=== PATIENT | female | born 1980 | race Caucasian/White ===

== ENCOUNTER → 2017-02-03 | Outpatient (CLI) | payer OTHER ==
[~2017-02-03] MED LIST: BUPR-83 PO; BUPRTAB51 PO; CEPH500C PO; CLOT1CRE4 TOP; EFFSR/75 PO; IBUP-1050 PO; LISI-729 PO; LISI5TAB3 PO; LITH1TAB PO; LITH1TAB10 PO; LITH300T PO; LTRCR15 EXT; MECL12.5 PO; MECL1TAB40 PO; MEDR150I IM; MEDR1INJ3 IM; PRLSR20 PO; PROP10TA7 PO; VENL150C56 PO; ZOLP5TAB PO
[2017-02-03 14:55] LABS: BLOOD UREA NITROGEN 12 mg/dl (7-18); BUN/CREATININE RATIO 12.3 (10-20); CALCIUM 9.4 mg/dl (8.5-10.1); CARBON DIOXIDE 19 mmol/L (21-32); CHLORIDE 110 mmol/L (98-107); CREATININE 0.95 mg/dl (0.60-1.20); GLUCOSE 85 mg/dl (70-99); POTASSIUM 4.4 mmol/L (3.5-5.1); SODIUM 140 mmol/L (136-145)
== END | disposition home or self-care (01) ==
LOC: C.LAB 12:59
PROVIDERS: ATTEND Psychiatry & Neurology Psychiatry
DX: Z79.899 Other long term (current) drug therapy (principal)

== ENCOUNTER 2017-02-24 16:35 | Emergency (ER) | payer OTHER ==
[~2017-02-24] VITALS: Ht 162.6 cm; Wt 150.3 kg
[~2017-02-24 16:35] MED LIST changes: -BUPRTAB51 PO; -CEPH500C PO; -CLOT1CRE4 TOP; -IBUP-1050 PO; -LISI-729 PO; -LITH1TAB PO; -MECL1TAB40 PO; -MEDR1INJ3 IM; -VENL150C56 PO
[2017-02-24 16:52] VITALS: TEMP 36.8; Ht 162.6 cm; Wt 150.3 kg
[2017-02-24] MEDS ORDERED: IBUP-1050 PO (17:07)
[2017-02-24] MEDS ORDERED: CLOT1CRE4 TOP (17:08)
[2017-02-24] MEDS ORDERED: LISI-729 PO (17:09)
[2017-02-24] MEDS ORDERED: MECL1TAB40 PO (17:11)
[2017-02-24] MEDS ORDERED: MEDR1INJ3 IM (17:13)
--- NOTE | 2017-02-24 17:26 | DIAGNOSTIC IMAGING REPORT ---
RIGHT HIP UNILATERAL 2 VIEWS CLINICAL HISTORY: R hip pain Right pain COMPARISON: None. DISCUSSION: The bones and joint spaces appear intact. There is no evidence of fracture, dislocation or bony disease. There is no evidence for soft tissue swelling. IMPRESSION: Negative study. Electronically signed by: Storm Curran M.D. 02/24/2017 5:24 PM Dictated Date/Time: 02/24/2017 5:24 PM
--- NOTE | 2017-02-24 18:09 | EMERGENCY ROOM VISIT NOTE ---
ED Visit Note First contact with patient: 16:55 I have seen and examined this patient with Jevon Austin and generally agree with the treatment plan as discussed. Problem List Medical Problems: (1) Benign hypertension Status: Chronic (2) Bipolar disorder Status: Chronic (3) Depression Status: Chronic Current/Historical Medications Scheduled Bupropion (Wellbutrin), 300 MG PO DAILY Clotrimazole (Topical) (Lotrimin Af), 1 APPLN TOP BID Ibuprofen (Advil), 600 MG PO DAILY Lisinopril (Zestril), 5 MG PO DAILY [place] Carbonate (Lithobid Ext Rel), 300 MG PO DAILY [place] Carbonate Ext Rel (Lithobid Ext Rel), 900 MG PO HS Medroxyprogesterone Acetate (C (Depo-Provera Contraceptiv), 150 MG IM EVERY 3 MONTHS Omeprazole (Prilosec), 20 MG PO DAILY Propranolol (Inderal), 10 MG PO DAILY Venlafaxine HCl (Venlafaxine HCl ER), 300 MG PO QAM Zolpidem Tartrate (Ambien), 5 MG PO HS Scheduled PRN Meclizine HCl (Meclizine HCl), 1 TAB PO UD PRN for Dizziness or Vertigo Allergies Coded Allergies: No Known Allergies (Verified , 02/24/17) Vital Signs Date Time Temp Pulse Resp B/P Pulse Ox O2 Delivery O2 Flow Rate FiO2 02/24/17 16:52 36.8 90 22 139/92 94 Room Air Departure Information Referrals Lee Ann Hogue M.D. (MEDICAL) (PCP) Patient Instructions [facility]
[2017-02-24 18:45] VITALS: BP 133/98; PULSE 81; O2SAT 97
--- NOTE | 2017-02-24 23:30 | EMERGENCY ROOM VISIT NOTE ---
History First contact with patient: 16:55 Chief Complaint: HIP PAIN Stated Complaint: RT HIP PAIN History of Present Illness The patient is a 36 year old female who presents to the Emergency Room with complaints of ongoing right hip pain. She was seen by her PCP recently and given a prescription for an anti-inflammatory "that begins with an I". The patient reports that the pain is worse when she walks. She denies any pain radiating into the back or down the leg. She denies any recent injury. She was referred to the emergency department by her PCP's office. No other imaging studies were performed in the office. The patient rates her pain a 9 out of 10. Review of Systems 10 system review was performed and was negative except for pertinent positives and negatives as indicated in history of present illness Past Medical/Surgical History Medical Problems: (1) Benign hypertension (2) Bipolar disorder (3) Depression Family History Patient reports no known family medical history. Social History Smoking Status: Never Smoker Alcohol Use: none Drug Use: none Marital Status: single Housing Status: lives with family Occupation Status: employed Current/Historical Medications Scheduled Bupropion (Wellbutrin), 300 MG PO DAILY Clotrimazole (Topical) (Lotrimin Af), 1 APPLN TOP BID Ibuprofen (Advil), 600 MG PO DAILY Lisinopril (Zestril), 5 MG PO DAILY [place] Carbonate (Lithobid Ext Rel), 300 MG PO DAILY [place] Carbonate Ext Rel (Lithobid Ext Rel), 900 MG PO HS Medroxyprogesterone Acetate (C (Depo-Provera Contraceptiv), 150 MG IM EVERY 3 MONTHS Omeprazole (Prilosec), 20 MG PO DAILY Propranolol (Inderal), 10 MG PO DAILY Venlafaxine HCl (Venlafaxine HCl ER), 300 MG PO QAM Zolpidem Tartrate (Ambien), 5 MG PO HS Scheduled PRN Meclizine HCl (Meclizine HCl), 1 TAB PO UD PRN for Dizziness or Vertigo Allergies Coded Allergies: No Known Allergies (Verified , 02/24/17) Physical Exam Vital Signs Date Time Temp Pulse Resp B/P Pulse Ox O2 Delivery O2 Flow Rate FiO2 02/24/17 18:45 81 16 133/98 97 Room Air 02/24/17 16:52 36.8 90 22 139/92 94 Room Air Physical Exam CONSTITUTIONAL: Morbidly obese female, alert and oriented X 3 with positive affect. Patient does not appear in any acute distress. HEENT: Normocephalic, atraumatic. Pupils equal, round and reactive. NECK: Full active range of motion without discomfort. RESPIRATORY: Clear to auscultation bilaterally with no wheezing, crackles, rhonchi or stridor. CARDIOVASCULAR: Regular rate and rhythm with no murmurs, rubs or gallops. GASTROINTESTINAL: Bowel sounds present in all quadrants. Abdomen is protuberant but soft and nontender to palpation. Negative McBurney's point tenderness. Negative CVA tenderness. MUSCULOSKELETAL: Examination shows generalized tenderness to palpation over the lateral pelvic region. No focal tenderness over the greater trochanteric region. Negative logroll. Negative straight leg raise. No tenderness to palpation through the lower back or SI joint. Pelvis stable with rock. Pedal pulses are intact. Ankle plantar/dorsiflexion strength is 5 out of 5 and symmetric bilaterally. INTEGUMENTARY: No rash or other significant dermatologic conditions noted. NEUROLOGIC: No focal neurologic deficits noted. Lower extremities are sensory intact with deep tendon reflexes 2+ and symmetric bilaterally. Medical Decision & Procedures ER Provider Diagnostic Interpretation: My interpretation of right hip x-rays does not show any acute fractures or dislocation. Radiologist report is as follows: RIGHT HIP UNILATERAL 2 VIEWS CLINICAL HISTORY: R hip pain Right pain COMPARISON: None. DISCUSSION: The bones and joint spaces appear intact. There is no evidence of fracture, dislocation or bony disease. There is no evidence for soft tissue swelling. IMPRESSION: Negative study. ED Course Patient history and physical exam were performed. Nurse's notes were reviewed. The patient refused any analgesics on initial exam. X-rays of the right hip were normal. The patient reports that she has both a walker and wheelchair at home. She was encouraged to limit her weightbearing over the next several days. She was encouraged to continue with her current anti-inflammatory as prescribed by her PCP, and Tylenol if needed for additional pain relief. I did encourage her to follow-up with her PCP for further reevaluation and management. The patient was happy with plan of care, voice understanding of all discharge instructions, and rated her pain a 5 out of 10 at the conclusion of my exam. The patient was also seen and examined by Dr. Srinivasan, ED attending physician, who agrees with workup and plan of care. Impression Primary Impression: Right hip pain Departure Information Referrals Lee Ann Hogue M.D. (MEDICAL) (PCP) Patient Instructions [facility]
== END 2017-02-24 18:48 | disposition home or self-care (01) ==
LOC: C.EDB 16:37 → C.EDD 18:48
DX: M25.551 Pain in right hip (principal); I10 Essential (primary) hypertension; F31.9 Bipolar disorder, unspecified; Z79.899 Other long term (current) drug therapy

== ENCOUNTER 2017-06-21 17:20 | Emergency (ER) | payer OTHER ==
[~2017-06-21] VITALS: Ht 162.6 cm; Wt 160.2 kg
[~2017-06-21 17:20] MED LIST changes: +CLOT1CRE4 TOP; +IBUP-1050 PO; +LISI-729 PO; -LISI5TAB3 PO; -LTRCR15 EXT; -MECL12.5 PO; +MECL1TAB40 PO; -MEDR150I IM; +MEDR1INJ3 IM
[2017-06-21] MEDS ORDERED: KETOROLAC TROMETHAMINE 30 MG/ML VIAL IV STA (17:33)
[2017-06-21 17:40] VITALS: TEMP 36.8; Ht 162.6 cm; Wt 160.2 kg
[2017-06-21 18:37] LABS: URINE APPEARANCE CLOUDY (CLEAR); URINE BILIRUBIN NEG (NEG); URINE COLOR YELLOW; URINE EPITHELIAL CELL AUTO >30 /lpf (0-5); URINE NITRITE NEG (NEG); URINE PH 8.5 (4.5-7.5); URINE SPECIFIC GRAVITY 1.015 (1.000-1.030); UROBILINOGEN NEG (NEG); ZZUR CULT IF INDIC CLEAN CATCH YES
[2017-06-21 18:38] LABS: BASO % 0.3 %; BASO ABS # 0.03 K/uL (0-0.2); COMPLETE YES; EOS % 3.1 %; HEMATOCRIT 38.4 % (37-47); IG% 0.2 %; LYMPH % 22.7 %; LYMPH ABS # 2.36 K/uL (1.2-3.4); MEAN CELL VOLUME 92.1 fL (80-100); MEAN CORPUSCULAR HEMOGLOBIN 30.7 pg (25-34); MEAN CORPUSCULAR HGB CONC 33.3 g/dl (32-36); MONO % 5.9 %; NEUT % 67.8 %; PLATELET COUNT 285 K/uL (130-400); RED BLOOD COUNT 4.17 M/uL (4.2-5.4); WHITE BLOOD COUNT 10.41 K/uL (4.8-10.8)
--- NOTE | 2017-06-21 18:42 | DIAGNOSTIC IMAGING REPORT ---
CHEST ONE VIEW PORTABLE CLINICAL HISTORY: Left-sided chest pain. COMPARISON STUDY: Chest radiograph February 14, 2014. FINDINGS: Lung volumes are normal. There is no pneumothorax or pleural effusion. Cardiomediastinal silhouette is stable. There is no evidence of pulmonary edema. No consolidation is identified to suggest pneumonia. The appearance of the chest is unchanged. IMPRESSION: No acute cardiopulmonary findings. Electronically signed by: Tree De León M.D. 06/21/2017 6:41 PM Dictated Date/Time: 06/21/2017 6:40 PM
[2017-06-21 18:43] LABS: MANUAL MICROSCOPIC REQUIRED? NO; REVIEW REQ? YES
[2017-06-21 18:58] LABS: BUN/CREATININE RATIO 13.4 (10-20); CALCIUM 9.6 mg/dl (8.5-10.1); POTASSIUM 4.1 mmol/L (3.5-5.1)
[2017-06-21] MEDS ORDERED: LITH1TAB PO (19:19)
[2017-06-21] MEDS ORDERED: VENL150C56 PO (19:19)
[2017-06-21] MEDS ORDERED: BUPRTAB51 PO (19:19)
[2017-06-21] MEDS ORDERED: CEPH500C PO (19:28)
[2017-06-21] MEDS ORDERED: CEPHALEXIN MONOHYDRATE 250 MG CAP PO ONE (19:30)
[2017-06-21 19:37] LABS: PREG INTERNAL NEGATIVE QC NEG CLEAR BACKGROUND; PREG INTERNAL POSITIVE QC POS CONTROL LINE
[2017-06-21 19:42] VITALS: BP 144/84; PULSE 81; O2SAT 99
--- NOTE | 2017-06-21 19:44 | EMERGENCY ROOM VISIT NOTE ---
History Report prepared by Eddi: Katlyn Zamora Under the Supervision of: Dr. José Antonio Ramos D.O. First contact with patient: 17:23 Stated Complaint: HIP PAIN History of Present Illness The patient is a 36 year old female who presents to the Emergency Room with complaints of worsening left hip pain beginning [employer]. The patient states that her pain radiates into the left side of her back. When she points to her hip she grabs her left mid to lower thoracic region. She denies any recent injury or trauma. She has been experiencing this pain for the past year. It started worsening a couple of months ago and she saw her PCP. She was given antiinflammatories at that time. The patient states that the medication was helping, but as soon as it wears off her pain returns. The patient states that today her pain is much more intense than usual. She rates her pain as an 8/10 in severity. Taking hot baths and Aleve helps to alleviate her pain. Lifting and movements such as twisting, turning, bending exacerbate her pain. She does report that last night she was carrying heavy bins up from her basement and thinks that this may be why her pain is worse today. The patient also reports an episode of chest pain occurring around 2pm this afternoon. She was sitting on the couch at her friend's house when she suddenly had a sharp, stabbing pain in her chest. She estimates that this pain lasted for 3 minutes and then resolved. She has never experienced pain like this before. She denies the pain radiating into her jaw or arm. Pt denies headache, fevers, shortness of breath, nausea, vomiting, diarrhea, pain with urination, and melena. Source of History: patient Onset: [employer] Position: pelvis (left hip) Symptom Intensity: 8/10 Quality: other (radiating) Timing: worsening Modifying Factors (Worsening): movement, other (lifting) Modifying Factors (Relieving): ibuprofen, heat Associated Symptoms: + chest pain, + back pain, No fevers, No headache, No SOB, No nausea, No vomiting, No urinary symptoms Review of Systems See HPI for pertinent positives & negatives. A total of 10 systems reviewed and were otherwise negative. Past Medical & Surgical Medical Problems: (1) Benign hypertension (2) Bipolar disorder (3) Depression Family History Patient reports no known family medical history. Social History Smoking Status: Never Smoker Alcohol Use: none Drug Use: none Marital Status: single Housing Status: lives with family Occupation Status: employed Current/Historical Medications Scheduled Bupropion Hcl (Wellbutrin Xl), 300 MG PO QAM Cephalexin Monohydrate (Keflex), 500 MG PO QID Lisinopril (Zestril), 5 MG PO QAM [place] Carbonate (Lithobid Ext Rel), 300 MG PO QAM [place] Carbonate Ext Rel (Lithobid Ext Rel), 900 MG PO HS Medroxyprogesterone Acetate (C (Depo-Provera Contraceptiv), 150 MG IM EVERY 3 MONTHS Omeprazole (Prilosec), 20 MG PO QAM Propranolol (Inderal), 10 MG PO HS Venlafaxine Hcl (Effexor Extended Rel), 300 MG PO QAM Zolpidem Tartrate (Ambien), 5 MG PO HS Allergies Coded Allergies: No Known Allergies (Verified , 06/21/17) Physical Exam Vital Signs Date Time Temp Pulse Resp B/P (MAP) Pulse Ox O2 Delivery O2 Flow Rate FiO2 06/21/17 18:39 77 18 137/82 99 Room Air 06/21/17 17:40 36.8 86 20 156/86 98 Room Air Physical Exam GENERAL: alert, sitting up in bed, disheveled, morbidly obese, well appearing, no distress, non-toxic EYE EXAM: normal conjunctiva OROPHARYNX: no exudate, no erythema, lips, buccal mucosa, and tongue normal and mucous membranes are moist NECK: supple, no nuchal rigidity, no adenopathy, non-tender LUNGS: Clear to auscultation. Normal chest wall mechanics HEART: Distant, no murmurs, S1 normal and S2 normal CHEST: Acute reproducible mid-sternal pain. ABDOMEN: abdomen soft, non-tender, normo-active bowel sounds, no masses, no rebound or guarding. BACK: Minimal tenderness within the left mid to lower flank tracking to the left mid thoracic perispinal region, no midline full active and passive ROM of the hip and knee SKIN: no rashes and no bruising UPPER EXTREMITIES: upper extremities are grossly normal. LOWER EXTREMITIES: No pitting edema. Negative straight leg raise. NEURO EXAM: Normal sensorium, cranial nerves II-XII grossly intact, normal speech, no gross weakness of arms, no gross weakness of legs. Medical Decision & Procedures ER Provider Diagnostic Interpretation: Radiology results as stated below per my review and the radiologist's interpretation: CHEST ONE VIEW PORTABLE CLINICAL HISTORY: Left-sided chest pain. COMPARISON STUDY: Chest radiograph February 14, 2014. FINDINGS: Lung volumes are normal. There is no pneumothorax or pleural effusion. Cardiomediastinal silhouette is stable. There is no evidence of pulmonary edema. No consolidation is identified to suggest pneumonia. The appearance of the chest is unchanged. IMPRESSION: No acute cardiopulmonary findings. Electronically signed by: Tree De León M.D. 06/21/2017 6:41 PM Dictated Date/Time: 06/21/2017 6:40 PM Laboratory Results 06/21/17 18:29 Red Blood Count 4.17, Mean Corpuscular Volume 92.1, Mean Corpuscular Hemoglobin 30.7, Mean Corpuscular Hemoglobin Concent 33.3, Mean Platelet Volume 9.0, Neutrophils (%) (Auto) 67.8, Lymphocytes (%) (Auto) 22.7, Monocytes (%) (Auto) 5.9, Eosinophils (%) (Auto) 3.1, Basophils (%) (Auto) 0.3, Neutrophils # (Auto) 7.07, Lymphocytes # (Auto) 2.36, Monocytes # (Auto) 0.61, Eosinophils # (Auto) 0.32, Basophils # (Auto) 0.03 06/21/17 18:29 Test 06/21/17 18:25 06/21/17 18:29 Urine Color YELLOW Urine Appearance CLOUDY (CLEAR) Urine pH 8.5 (4.5-7.5) Urine Specific [place] 1.015 (1.000-1.030) Urine Protein NEG (NEG) Urine Glucose (UA) NEG (NEG) Urine Ketones NEG (NEG) Urine Occult Blood NEG (NEG) Urine Nitrite NEG (NEG) Urine Bilirubin NEG (NEG) Urine Urobilinogen NEG (NEG) Urine Leukocyte Esterase MODERATE (NEG) Urine WBC (Auto) 5-10 /hpf (0-5) Urine RBC (Auto) 0-4 /hpf (0-4) Urine Hyaline Casts (Auto) 0 /lpf (0-5) Urine Epithelial Cells (Auto) >30 /lpf (0-5) Urine Bacteria (Auto) 4+ (NEG) Urine Test NEG (NEG) White Blood Count 10.41 K/uL (4.8-10.8) Red Blood Count 4.17 M/uL (4.2-5.4) Hemoglobin 12.8 g/dL (12.0-16.0) Hematocrit 38.4 % (37-47) Mean Corpuscular Volume 92.1 fL (80-100) Mean Corpuscular Hemoglobin 30.7 pg (25-34) Mean Corpuscular Hemoglobin Concent 33.3 g/dl (32-36) Platelet Count 285 K/uL (130-400) Mean Platelet Volume 9.0 fL (7.4-10.4) Neutrophils (%) (Auto) 67.8 % Lymphocytes (%) (Auto) 22.7 % Monocytes (%) (Auto) 5.9 % Eosinophils (%) (Auto) 3.1 % Basophils (%) (Auto) 0.3 % Neutrophils # (Auto) 7.07 K/uL (1.4-6.5) Lymphocytes # (Auto) 2.36 K/uL (1.2-3.4) Monocytes # (Auto) 0.61 K/uL (0.11-0.59) Eosinophils # (Auto) 0.32 K/uL (0-0.5) Basophils # (Auto) 0.03 K/uL (0-0.2) RDW Standard Deviation 43.3 fL (36.4-46.3) RDW Coefficient of Variation 12.9 % (11.5-14.5) Immature Granulocyte % (Auto) 0.2 % Immature Granulocyte # (Auto) 0.02 K/uL (0.00-0.02) D-Dimer 330 ug/L FEU (0-500) Anion Gap 5.0 mmol/L (3-11) Est Creatinine Clear Calc Drug Dose 117.9 ml/min Estimated GFR () 83.4 Estimated GFR (Non- 71.9 BUN/Creatinine Ratio 13.4 (10-20) Calcium Level 9.6 mg/dl (8.5-10.1) Total Bilirubin 0.4 mg/dl (0.2-1) Direct Bilirubin 0.2 mg/dl (0-0.2) Aspartate Amino Transf (AST/SGOT) 156 U/L (15-37) Alanine Aminotransferase (ALT/SGPT) 98 U/L (12-78) Alkaline Phosphatase 81 U/L (45-117) Total Protein 6.5 gm/dl (6.4-8.2) Albumin 3.7 gm/dl (3.4-5.0) Lipase 133 U/L (73-393) Human Chorionic Gonadotropin, Quant < 1 mIU/mL [place] Level 1.1 mMOL/L (0.6-1.2) Laboratory results per my review. Medications Administered Medications (Trade) Dose Ordered Sig/Starr Route Start Time Stop Time Status Last Admin Dose Admin Ketorolac Tromethamine (Toradol Inj) 30 mg NOW STAT IV 06/21/17 17:33 06/21/17 17:34 DC 06/21/17 18:37 30 MG Cephalexin Monohydrate (Keflex Cap) 500 mg NOW ONCE PO 06/21/17 19:30 06/21/17 19:31 DC 06/21/17 19:36 500 MG ECG Indication: chest pain Rate (beats per minute): 84 Rhythm: normal sinus Findings: no ectopy, other (normal axis - poor baseline) ED Course ED COURSE: Vital signs were reviewed and showed hypertensive. The patients medical record was reviewed The above diagnostic studies were performed and reviewed. ED treatments and interventions as stated above. 1723: The patient was evaluated in room C3. A complete history and physical examination was performed. 1733: Toradol 30 mg IV 1823: I reassessed the patient and she is doing well. 1914: I updated the patient on her results so far. 1917: I spoke with Rohini the pharmacist and she notes that the patient's lithium level is very unlikely to cause transaminitis. 0: Upon reevaluation, the patient is feeling better and resting comfortably. I discussed my findings with the patient and she understands and agrees with the treatment plan. Based on the patients age, coexisting illnesses, exam and lab findings the decision to treat as an outpatient was made. The patient remained stable while under my care. The patient appeared well at the time of discharge. Medical Decision Differential diagnoses includes but is not limited to lumbar radiculopathy, muscle strain, facture, cauda equina, mass, and disc herniation. Patient is a 36-year-old female who presents the ER for several complaints. Initially she is complaining of left hip pain but when asked it is in the left flank region. She has no pain with range of motion of her hip. No signs of infection. No signs of cauda equina. She doesn't complain of chest pain around 2 PM which was sharp stabbing in nature which lasted for 2 minutes. On exam she has acute reproducible anterior chest pain which was the exact same pain she had. D-dimer was negative. EKG was unremarkable. Chest x-ray was normal. CBC along with BMP and bilirubin was unremarkable. Lipase is negative. HCG was negative. She had a mild transaminitis. Discussed with him possibly causing this with pharmacy they noted it's unlikely and transient. Patient has no other complaints. No abdominal pain. Flank pain is clearly muscle skeletal likely secondary to the lifting of heavy boxes yesterday. D- dimer was negative. UA suggest a UTI. She did complain of mild burning on reevaluation. She was updated. Patient was discharged following improvement of her pain with Toradol to follow-up with PCP. Discussed with Pt concerning signs and symptoms to watch out for. Pt was instructed to follow up with their PCP and discussed with the patient their option to return to the ED at anytime for persistent or worsening symptoms. The appropriate anticipatory guidance and out-patient management, including indications for return to the emergency department, were explained at length to the patient and understood. Medication Reconcilliation Current Medication List: was personally reviewed by me Blood Pressure Screening Patient's blood pressure: Elevated blood pressure Blood pressure disposition: Elevated BP felt to be situational Impression Primary Impression: Back pain Additional Impression: Urinary tract infection Scribe Attestation The scribe's documentation has been prepared under my direction and personally reviewed by me in its entirety. I confirm that the note above accurately reflects all work, treatment, procedures, and medical decision making performed by me. Departure Information Dispostion Home / Self-Care Prescriptions Cephalexin Monohydrate (Keflex) 500 Mg Cap 500 MG PO QID, #40 CAP Prov: José Antonio Ramos, DO 06/21/17 Referrals Lee Ann Hogue M.D. (MEDICAL) (PCP) Forms HOME CARE DOCUMENTATION FORM, IMPORTANT VISIT INFORMATION, WORK / SCHOOL INSTRUCTIONS Patient Instructions Back Pain - [facility], My [facility] Additional Instructions Please follow up with your primary care doctor or if you are a student, [facility] with in the next 24 hours. Any worsening of your symptoms, please return to the ED immediately. This includes any fevers greater than 100.4, worsening pain, chest pain, shortness breath, persistent nausea, weakness or numbness in your arms or legs, inability urinate, vomiting, unable to eat or drink, or any other concerning signs or symptoms from your standpoint. You were found to have a blood pressure greater than 120 systolic over 90 diastolic. Due to the new Medicare guidelines, we are now recommending that you follow up with your primary care doctor in regards to this elevated blood pressure. Please take Motrin as needed for pain. You were found to have a urinary tract infection. Please take antibiotic as prescribed. You were also found to have an elevation in your liver functions. Please have your LFTs rechecked in 3-4 days. Problem Qualifiers Primary Impression: Back pain Back pain location: thoracic back pain Chronicity: acute Back pain laterality: left Qualified Codes: M54.6 - Pain in thoracic spine Additional Impression: Urinary tract infection Urinary tract infection type: site unspecified Hematuria presence: without hematuria Qualified Codes: N39.0 - Urinary tract infection, site not specified
== END 2017-06-21 19:43 | disposition home or self-care (01) ==
LOC: EDBD 17:20 → C.EDC 17:21
DX: M54.6 Pain in thoracic spine (principal); N39.0 Urinary tract infection, site not specified; I10 Essential (primary) hypertension; F31.9 Bipolar disorder, unspecified; Z79.899 Other long term (current) drug therapy

== ENCOUNTER → 2017-09-12 | Outpatient (CLI) | payer OTHER ==
[~2017-09-12] MED LIST changes: -BUPR-83 PO; +BUPRTAB51 PO; +CEPH500C PO; -CLOT1CRE4 TOP; -EFFSR/75 PO; -IBUP-1050 PO; +LITH1TAB PO; -LITH1TAB10 PO; -MECL1TAB40 PO; +VENL150C56 PO
[2017-09-12 17:11] LABS: CHOLESTEROL/HDL RATIO 2.3; THYROID STIMULATING HORMONE 4.28 uIu/ml (0.300-4.500)
[2017-09-13 07:36] LABS: ESTIMATED AVERAGE GLUCOSE 100 mg/dl; HA1C FLAG Normal (Normal)
== END | disposition home or self-care (01) ==
LOC: C.LAB 15:28
PROVIDERS: ATTEND Psychiatry & Neurology Psychiatry
DX: Z51.81 Encounter for therapeutic drug level monitoring (principal); Z79.899 Other long term (current) drug therapy

== ENCOUNTER 2017-11-22 08:59 | Emergency (ER) | payer OTHER ==
[~2017-11-22] VITALS: Ht 162.6 cm; Wt 154.8 kg
[2017-11-22 09:03] VITALS: TEMP 36.5; Ht 162.6 cm; Wt 154.8 kg
[2017-11-22] MEDS ORDERED: BUPR150T5 PO (09:11)
[2017-11-22] MEDS ORDERED: KETOROLAC TROMETHAMINE 30 MG/ML VIAL IV STA (09:16)
[2017-11-22] MEDS ORDERED: CLIN300C2 PO (09:26)
[2017-11-22] MEDS ORDERED: NAPR500T3 PO (09:26)
[2017-11-22] MEDS ORDERED: CLINDAMYCIN IV 900 MG in DEXTROSE 5% 100ML 100 ML IV ONE (09:30)
[2017-11-22 11:31] VITALS: BP 148/87; PULSE 89; O2SAT 98
--- NOTE | 2017-11-22 15:32 | EMERGENCY ROOM VISIT NOTE ---
History First contact with patient: 09:06 Chief Complaint: DENTAL PAIN Stated Complaint: TOOTH PAIN,SWELLING ON R SIDE OF FACE Nursing Triage Summary: right side of the face with facial swelling and tooth pain since yesterday. History of Present Illness The patient is a 37 year old female who presents to the Emergency Room with complaints of right upper dental pain and facial swelling. The patient reports that she noticed discomfort yesterday morning, and by last evening, the face was swollen. When she awoke this morning, the swelling was even worse. She denies any fevers or chills, sinus congestion, runny nose, headache, sore throat or difficulty swallowing. The patient reports that she has two bad upper teeth that need to be pulled. She suspects that these teeth are what are causing her problem. She rates her discomfort a 7 out of 10. Review of Systems 10 system review was performed and was negative except for pertinent positives and negatives as indicated in history of present illness Past Medical/Surgical History Medical Problems: (1) Benign hypertension (2) Bipolar disorder (3) Depression Family History Patient reports no known family medical history. Social History Smoking Status: Former Smoker Alcohol Use: none Drug Use: none Marital Status: single Housing Status: lives with family Occupation Status: employed Current/Historical Medications Scheduled Bupropion Hcl (Wellbutrin Xl), 300 MG PO QAM Bupropion Hcl (Bupropion Hcl Xl), 150 MG PO QAM Clindamycin Hcl (Cleocin), 300 MG PO QID Lisinopril (Zestril), 5 MG PO QAM [place] Carbonate (Lithobid Ext Rel), 300 MG PO QAM [place] Carbonate Ext Rel (Lithobid Ext Rel), 900 MG PO HS Medroxyprogesterone Acetate (C (Depo-Provera Contraceptiv), 150 MG IM EVERY 3 MONTHS Naproxen (Naproxen), 1 TAB PO BID Omeprazole (Prilosec), 20 MG PO QAM Propranolol (Inderal), 10 MG PO HS Venlafaxine Hcl (Effexor Extended Rel), 300 MG PO QAM Zolpidem Tartrate (Ambien), 5 MG PO HS Physical Exam Vital Signs Date Time Temp Pulse Resp B/P (MAP) Pulse Ox O2 Delivery O2 Flow Rate FiO2 11/22/17 11:31 89 16 148/87 98 Room Air 11/22/17 09:03 36.5 95 20 143/91 98 Room Air Physical Exam CONSTITUTIONAL: Morbidly obese female, alert and oriented X 3 with positive affect. Patient does not appear in any acute distress. HEENT: Examination shows notable right facial edema without overriding erythema or palpable induration. Pupils equal, round and reactive. Ears and nares are clear. OROPHARYNX: The patient has several dental cavities of the right maxillary molars. There is no focal gingival erythema, fluctuance or pointing. No evidence for Easton's angina or retropharyngeal abscess. LYMPHATICS: No preauricular, submental, submandibular or cervical chain adenopathy. NECK: Full active range of motion without discomfort. RESPIRATORY: Clear to auscultation bilaterally with no wheezing, crackles, rhonchi or stridor. CARDIOVASCULAR: Regular rate and rhythm with no murmurs, rubs or gallops. INTEGUMENTARY: No rash or other significant dermatologic conditions noted. NEUROLOGIC: Facial sensations are intact. Medical Decision & Procedures Medications Administered Medications (Trade) Dose Ordered Sig/Starr Route Start Time Stop Time Status Last Admin Dose Admin Clindamycin Phosphate 900 mg/ Dextrose 106 ml @ 100 mls/hr ONE ONCE IV 11/22/17 09:30 11/22/17 10:33 DC 11/22/17 09:33 100 MLS/HR Ketorolac Tromethamine (Toradol Inj) 30 mg NOW STAT IV 11/22/17 09:16 11/22/17 09:17 DC 11/22/17 09:23 30 MG ED Course Patient history and physical exam were performed. Nurse's notes were reviewed. Vital signs were reviewed, showing an elevated blood pressure 143/91. The patient is afebrile. She does not appear acutely or toxic on exam. I did suggest administering IV antibiotics, and the patient was in agreement. IV access was established, and the patient was administered clindamycin 900 mg IV infusion. She was also administered Toradol 30 mg IVP. The patient was provided prescriptions for naproxen 500 mg twice a day, and clindamycin 300 mg 4 times a day. She was encouraged to also take Tylenol every 6-8 hours. The patient was encouraged to follow-up with a dentist for further definitive management. She was instructed to return to the emergency department for any progressively worsening pain, swelling or fever. The patient was happy with plan of care, voiced understanding of all discharge instructions, and rated her discomfort a 3 out of 10 at the time of discharge. The patient was encouraged to follow-up with her PCP for a blood pressure recheck as her blood pressure was elevated while in the emergency department. Medical Decision Blood Pressure Screening Patient's blood pressure: Elevated blood pressure Blood pressure disposition: Referred to PCP Impression Primary Impression: Dental infection Additional Impression: Elevated blood pressure reading Departure Information Prescriptions Clindamycin Hcl (CLEOCIN) 300 Mg Cap 300 MG PO QID for 10 Days, #40 CAP Prov: Jevon Ausitn PA 11/22/17 Naproxen (NAPROXEN) 500 Mg Tab 1 TAB PO BID for 10 Days, #20 TAB 1 Refill Prov: Jevon Austin PA 11/22/17 Referrals No Doctor, Assigned (PCP) Forms HOME CARE DOCUMENTATION FORM, IMPORTANT VISIT INFORMATION Patient Instructions [facility] Additional Instructions Finish all Pen-Vee K antibiotics as prescribed. Ibuprofen 800 mg and/or Tylenol 1000 mg every 8 hours. You may also alternate these medications for more effective pain relief: Ibuprofen --4 HRS--> Tylenol --4 HRS--> ibuprofen --4 HRS--> Tylenol .... OxyIR if needed for worse pain. Do not drink or drive while taking OxyIR. Soft foods. YOU MUST SEE A DENTIST FOR DEFINITIVE CARE. THE EMERGENCY DEPARTMENT DOES NOT PROVIDE DENTAL SERVICES, REFERRALS OR CHRONIC DENTAL PAIN MANAGEMENT. YOU MAY ALSO CALL YOUR FAMILY DOCTOR FOR PAIN MANAGEMENT UNTIL YOU SEE YOUR DENTIST. Your blood pressure was elevated at 143/91 while in the emergency department. Suggest follow-up with your family doctor for a blood pressure recheck. Problem Qualifiers
== END 2017-11-22 11:39 | disposition home or self-care (01) ==
LOC: C.EDB 09:00
DX: K08.89 Other specified disorders of teeth and supporting structures (principal); R03.0 Elevated blood-pressure reading, without diagnosis of hypertension; I10 Essential (primary) hypertension; F31.9 Bipolar disorder, unspecified; Z87.891 Personal history of nicotine dependence; Z79.899 Other long term (current) drug therapy

== ENCOUNTER 2018-01-16 23:09 | Emergency (ER) | payer OTHER ==
[~2018-01-16] VITALS: Ht 162.6 cm; Wt 155.8 kg
[~2018-01-16 23:09] MED LIST changes: +BUPR150T5 PO; -CEPH500C PO; +NAPR500T3 PO
[2018-01-16 23:16] VITALS: TEMP 37; Ht 162.6 cm; Wt 155.8 kg
[2018-01-17 00:29] LABS: HEMOGLOBIN 13.7 g/dL (12.0-16.0); MEAN CELL VOLUME 89.5 fL (80-100); MEAN CORPUSCULAR HEMOGLOBIN 30.6 pg (25-34); MEAN CORPUSCULAR HGB CONC 34.3 g/dl (32-36); MEAN PLATELET VOLUME 8.9 fL (7.4-10.4); PLATELET COUNT 320 K/uL (130-400); RED CELL DISTRIBUTION WIDTH CV 13.9 % (11.5-14.5); RED CELL DISTRIBUTION WIDTH SD 45.5 fL (36.4-46.3); WHITE BLOOD COUNT 10.51 K/uL (4.8-10.8)
[2018-01-17 00:54] LABS: ALT/SGPT 28 U/L (12-78); AST/SGOT 9 U/L (15-37); BLOOD UREA NITROGEN 16 mg/dl (7-18); CALCIUM 9.1 mg/dl (8.5-10.1); CARBON DIOXIDE 19 mmol/L (21-32); CREATININE 1.21 mg/dl (0.60-1.20); GLUCOSE 106 mg/dl (70-99); POTASSIUM 3.3 mmol/L (3.5-5.1); SODIUM 138 mmol/L (136-145)
[2018-01-17 01:05] LABS: ALKALINE PHOSPHATASE 68 U/L (45-117); TOTAL PROTEIN 7.7 gm/dl (6.4-8.2)
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
[2018-01-17 02:49] VITALS: BP 151/88
[2018-01-17 07:47] VITALS: PULSE 93; O2SAT 98
--- NOTE | 2018-01-19 18:35 | Pharmacy Progress Note ---
ED Pharmacist Culture FollowUp Date of Service: Jan 19, 2018. Patient was transferred to the [facility]. Contacted the [facility] and spoke neal Marques who confirmed that patient was still there. Informed of positive culture results. Shelli noted to fax the results to , which I did. Fax confirmation received.
== END 2018-01-17 07:47 ==
LOC: C.EDB 23:10 → C.EDA 01-17 07:47
DX: R45.851 Suicidal ideations (principal); I10 Essential (primary) hypertension; F31.9 Bipolar disorder, unspecified; Z87.891 Personal history of nicotine dependence; Z83.3 Family history of diabetes mellitus; Z82.0 Family history of epilepsy and other diseases of the nervous system; Z79.899 Other long term (current) drug therapy

== ENCOUNTER 2018-04-02 12:06 | Emergency (ER) | payer OTHER ==
[~2018-04-02] VITALS: Ht 162.6 cm; Wt 158.1 kg
[~2018-04-02 12:06] MED LIST changes: -NAPR500T3 PO
[2018-04-02 12:08] VITALS: TEMP 36.7; Ht 162.6 cm; Wt 158.1 kg
[2018-04-02] MEDS ORDERED: PROP20TA67 PO (12:44)
[2018-04-02] MEDS ORDERED: EFFSR75 PO (12:44)
[2018-04-02] MEDS ORDERED: MELA1TAB PO (12:46)
--- NOTE | 2018-04-02 13:06 | DIAGNOSTIC IMAGING REPORT ---
L KNEE 3 VIEWS CLINICAL HISTORY: Left knee pain following fall. COMPARISON: Left knee radiographs and CT of the left knee February 17, 2013. FINDINGS: Alignment of left knee is anatomic. No acute fracture or joint effusion is identified. There is extensive tricompartmental osteophytosis of the left knee. There is mild to moderate joint space narrowing within the lateral and patellofemoral compartments. Cortical irregularity of the medial metadiaphysis of the left tibia is chronic. Soft tissue swelling is present. IMPRESSION: 1. No acute fracture or joint effusion of the left knee. 2. Moderate tricompartmental osteoarthritis of the left knee. Electronically signed by: Tree De León M.D. 04/02/2018 1:05 PM Dictated Date/Time: 04/02/2018 1:03 PM
--- NOTE | 2018-04-02 13:07 | DIAGNOSTIC IMAGING REPORT ---
L TIBIA/FIBULA 2 VIEWS ROUTINE CLINICAL HISTORY: same trauma. Pain. COMPARISON: None. DISCUSSION: Pretibial soft tissue edema. No acute bony abnormality. Degenerative changes in medial and lateral joint compartments of the knee. No abnormal periosteal reaction. IMPRESSION: Considerable pretibial soft tissue edema. No acute bony abnormality. The above report was generated using voice recognition software. It may contain grammatical, syntax or spelling errors. Electronically signed by: Storm Curran M.D. 04/02/2018 1:06 PM Dictated Date/Time: 04/02/2018 1:04 PM
--- NOTE | 2018-04-02 13:46 | EMERGENCY ROOM VISIT NOTE ---
ED Visit Note First contact with patient: 12:13 The patient was seen and examined with Garrett Umana PA-C. I agree with the history, physical and findings. Please see the note for disposition and details.
[2018-04-02] MEDS ORDERED: TRAM-10 PO (14:02)
[2018-04-02 14:17] VITALS: BP 145/85; PULSE 62; O2SAT 99
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
== END 2018-04-02 14:18 | disposition home or self-care (01) ==
LOC: C.EDB 12:07 → C.EDD 14:18
DX: S80.02XA Contusion of left knee, initial encounter (principal); S80.12XA Contusion of left lower leg, initial encounter; W01.0XXA Fall on same level from slipping, tripping and stumbling without subsequent striking against object, initial encounter; Y92.89 Other specified places as the place of occurrence of the external cause; I10 Essential (primary) hypertension; Z79.899 Other long term (current) drug therapy

== ENCOUNTER → 2018-07-20 | Outpatient (CLI) | payer OTHER ==
[~2018-07-20] MED LIST changes: +EFFSR75 PO; +MELA1TAB PO; +PROP20TA67 PO
[2018-07-20 14:53] LABS: BASO % 0.2 %; BASO ABS # 0.01 K/uL (0-0.2); EOS % 2.5 %; EOS ABS # 0.16 K/uL (0-0.5); HEMATOCRIT 41.2 % (37-47); HEMOGLOBIN 13.6 g/dL (12.0-16.0); IG# 0.01 K/uL (0.00-0.02); LYMPH % 39.2 %; LYMPH ABS # 2.51 K/uL (1.2-3.4); MEAN CELL VOLUME 90.9 fL (80-100); MEAN PLATELET VOLUME 9.3 fL (7.4-10.4); MONO % 3.9 %; MONO ABS # 0.25 K/uL (0.11-0.59); NEUT ABS # 3.46 K/uL (1.4-6.5); PLATELET COUNT 296 K/uL (130-400); RED CELL DISTRIBUTION WIDTH CV 13.4 % (11.5-14.5)
[2018-07-20 15:03] LABS: HEMOGLOBIN A1C 5.2 % (4.5-5.6)
[2018-07-20 15:34] LABS: ALBUMIN 3.9 gm/dl (3.4-5.0); ALKALINE PHOSPHATASE 59 U/L (45-117); ALT/SGPT 37 U/L (12-78); AST/SGOT 12 U/L (15-37); BLOOD UREA NITROGEN 13 mg/dl (7-18); CALCIUM 9.2 mg/dl (8.5-10.1); CARBON DIOXIDE 24 mmol/L (21-32); CHOLESTEROL 161 mg/dl (0-200); CREATININE 0.77 mg/dl (0.60-1.20); GLUCOSE 87 mg/dl (70-99); LDL CHOLESTEROL CALCULATED 77 mg/dl; POTASSIUM 3.9 mmol/L (3.5-5.1); SODIUM 140 mmol/L (136-145); TOTAL PROTEIN 7.4 gm/dl (6.4-8.2)
== END | disposition home or self-care (01) ==
LOC: C.LAB 13:40
PROVIDERS: ATTEND Physician Assistant
DX: Z79.899 Other long term (current) drug therapy (principal)

== ENCOUNTER 2019-04-23 11:25 | Inpatient (IN) ==
[2019-04-23] MEDS ORDERED: SODIUM CHLORIDE 0.9% 1000ML 1,000 ML IV SCH (12:00)
[2019-04-23 13:08] LABS: Basophils # (auto) 0.01 K/uL (0-0.2); Basophils % (auto) 0.1 %; Eosinophils # (auto) 0.22 K/uL (0-0.5); Eosinophils % (auto) 2.6 %; Hematocrit (blood only) 30.8 % (37-47); Hemoglobin 10.2 g/dL (12.0-16.0); Immature Granulocytes # (auto) 0.02 K/uL (0.00-0.02); Immature Granulocytes % (auto) 0.2 %; Lymphocytes # (auto) 0.99 K/uL (1.2-3.4); Lymphocytes % (auto) 11.7 %; Mean Corpuscular Hgb Conc 33.1 g/dL (32-36); Mean Corpuscular Volume 92.2 fL (80-100); Mean Platelet Volume 9.5 fL (7.4-10.4); Monocytes # (auto) 0.52 K/uL (0.11-0.59); Monocytes % (auto) 6.1 %; Neutrophils # (auto) 6.71 K/uL (1.4-6.5); Neutrophils % (auto) 79.3 %; Platelet Count 264 K/uL (130-400); RDW Coefficient of Variation 13.4 % (11.5-14.5); RDW Standard Deviation 45.4 fL (36.4-46.3); Red Blood Count 3.34 M/uL (4.2-5.4); White Blood Count 8.47 K/uL (4.8-10.8)
[2019-04-23 13:20] LABS: INR 1.1 (0.9-1.1); Partial Thromboplastin Ratio 0.9; Partial Thromboplastin Time 24.4 Seconds (21.0-31.0); Prothrombin Time 10.9 Seconds (9.0-12.0)
--- NOTE | 2019-04-23 13:27 | CT Scan Report ---
CT head/brain wo con CLINICAL HISTORY: 38 years-old Female presenting with altered, increasing confusion, abnormal behavio r, change of medication on Friday, reported fall yesterday with injury to right leg and head, pain in the hand and right upper leg, disoriented to time. TECHNIQUE: Multidetector CT imaging of the head was performed without the use of intravenous contrast . IV contrast: None. One or more dose lowering techniques were used consistent with the principles of ALARA (as low as reasonably achievable), including automatic exposure control, mA or kV adjustment t o individual patient size, and/or use of iterative reconstruction. COMPARISON: 02/18/2019. CT DOSE (mGy.cm): The estimated cumulative dose is 1277.12 mGycm. FINDINGS: Director Compensation topogram: Unremarkable. Ventricles and sulci normal in size. Calcified foci in the subependymal region of the lateral ventric les. No hemorrhage. Brain parenchyma normal in appearance with preserved vernon-white differentiation. No acute territorial infarct. No mass effect or midline shift. No extra-axial fluid collection. Paran kylah sinuses and mastoid air cells clear. Calvarium intact. IMPRESSION: 1. No acute intracranial abnormality. 2. Subacute minimal calcified foci again could suggest underlying tuberous sclerosis or prior infect ion. Electronically signed by: Manolo Banerjee M.D. 04/23/2019 1:25 PM
--- NOTE | 2019-04-23 13:29 | XRay Report ---
XR chest 1V portable CLINICAL HISTORY: 38 years-old Female presenting with weakness. TECHNIQUE: Portable upright AP view of the chest was obtained. COMPARISON: Chest CT from 02/18/2019 and chest x-ray from 11/07/2018. FINDINGS: Cardiac silhouette top normal in size. Mildly low lung volumes. No focal opacity. No large effusion o r pneumothorax. Osseous structures normal. Upper abdomen normal. IMPRESSION: 1. Mildly low lung volumes with hypoventilatory changes. No convincing evidence of acute cardiopulmo nary disease. Electronically signed by: Manolo Banerjee M.D. 04/23/2019 1:28 PM
[2019-04-23 13:35] LABS: Alanine Aminotransferase 25 U/L (12-78); Albumin Level 3.4 gm/dl (3.4-5.0); BUN Creatinine Ratio 12.5 (10-20); Blood Urea Nitrogen 18 mg/dl (7-18); Calcium 9.1 mg/dl (8.5-10.1); Carbon Dioxide 19 mmol/L (21-32); Chloride 113 mmol/L (98-107); Creatinine Clr Calc Pharmacy 75.6 ml/min; Est GFR (Non-African American) 44.9; Glucose 88 mg/dl (70-99); Magnesium 2.6 mg/dl (1.8-2.4); Potassium 4.5 mmol/L (3.5-5.1); Sodium 134 mmol/L (136-145)
[2019-04-23 13:44] LABS: Albumin Globulin Ratio 1.1 (0.9-2); Alkaline Phosphatase 145 U/L (45-117); Aspartate Aminotransferase 11 U/L (15-37); Bilirubin,Total 0.3 mg/dl (0.2-1); Creatine Kinase 63 U/L (26-192); Globulin 3.1 gm/dl (2.5-4.0); Total Protein 6.5 gm/dl (6.4-8.2); Troponin I < 0.015 ng/ml (0-0.045)
[2019-04-23 14:03] LABS: T4 Free Thyroxine 1.33 ng/dl (0.8-1.6)
[2019-04-23 14:16] LABS: Base Excess VBG -6.6 mEq/L; HCO3 VBG 18 mmol/L; Oxygen Saturation VBG < 60.0 %; PCO2 VBG 33 mmHg (38-50); PO2 VBG 25 mmHg; pH VBG 7.35 (7.36-7.41)
[2019-04-23] MEDS ORDERED: SODIUM CHLORIDE 0.9% 1000ML 1,000 ML IV ONE (14:51)
--- NOTE | 2019-04-23 15:11 | Emergency Department Note ---
Entered by Jana Lyles acting as a scribe for History of Present Illness General Chief complaint: Confusion Source: other (nursing staff) History of Present Illness Onset (ago): day(s) (yesterday) Location: head Pain Consistency: + other (episode) Maximum Pain Intensity: 1 Quality: + other (confusion) Associated symptoms: + denies other symptoms (any other pain) and + other (difficulty walking, falling, upper right leg pain, has a cold); no fever/chills (fever) and no headaches The patient is a 38 year old female who presents to the ED with complaints of an episode of confusion starting yesterday. Per nursing staff, the patient was bought to the ED yesterday for a fall and confusion from [facility]. They state that today she was bought in for the same complaints. They report that she is on Rhine and since having changes in the dosage, she has not been with it and been able to move properly. They note that it is unknown if it was an increase or decrease in her Rhine. Nursing staff states that she normally does things on her own and can walk on her own, but staff at [facility] reports that she has been spacey and in a wheelchair. Nursing staff notes that she did fall yesterday and did hit her head. They note that she is complaining of upper right leg pain. The patient complains of having a cold. Nursing staff denies the patient having a fever. The patient denies a headache and any other pain. Home Medications Home Medications Medication Instructions Recorded Confirmed Type bupropion HCl 300 mg PO QAM 11/07/18 04/23/19 History lithium carbonate 300 mg PO QAM 11/07/18 04/23/19 History lithium carbonate 450 mg PO HS 11/07/18 04/23/19 History medroxyprogesterone [Depo-Provera] 150 mg IM Q3M 11/07/18 04/23/19 History venlafaxine 75 mg PO QAM 11/07/18 04/23/19 History venlafaxine 150 mg PO QAM 11/07/18 04/23/19 History melatonin 6 mg PO HS 11/23/18 04/23/19 History propranolol 20 mg PO BID 11/23/18 04/23/19 History hydrocodone-acetaminophen 1 tab PO Q8H PRN #14 tab 02/18/19 04/23/19 Rx lisinopril 5 mg PO QAM 02/18/19 04/23/19 History omeprazole 20 mg PO QAM 02/18/19 04/23/19 History meloxicam 15 mg PO QAM 04/22/19 04/23/19 History sertraline 25 mg PO QAM 04/22/19 04/23/19 History Allergies Allergy/AdvReac Type Severity Reaction Status Date / Time pollen extracts Allergy Intermediate ITCHY Verified 04/23/19 12:40 WATERY EYES, RUNNY NOSE, PUFFY EYES Past Med/Surg History Family History Other Family history non-contributory Social History Communication Ability: Impaired Cloud Automation Tester Required: No Beliefs That Will Affect Care: None marital status: Single Current Living Situation: Detention current occupational status: disabled Feels Safe at Home: Yes Safety Concerns: Feels Safe At This Time Smoking Status: Unknown if ever smoked Hx Alcohol Use: No Hx Substance Use: No Review of Systems See HPI for pertinent positives & negatives. and A total of 10 systems reviewed and were otherwise negative Physical Exam Vital Signs Vital Signs - 24 hr 04/23/19 11:30 04/23/19 11:31 04/23/19 11:33 Temperature 36.9 C Temperature Source Oral Sepsis Recent Fever Within 48 Hours No Sepsis Action Taken by Nursing No Action Required Pulse Rate 66 66 65 Pulse Rate [Finger] Pulse Rate from SpO2 Sensor 66 65 Pulse Rhythm Respiratory Rate 21 22 22 Blood Pressure 110/68 110/68 Blood Pressure [Right Arm] Blood Pressure Mean 82 82 Blood Pressure Mean [Right Arm] Pulse Oximetry 94 94 94 Oxygen Delivery Method Room Air 04/23/19 12:00 04/23/19 12:02 04/23/19 12:07 Temperature Temperature Source Sepsis Recent Fever Within 48 Hours Sepsis Action Taken by Nursing Pulse Rate 67 65 70 Pulse Rate [Finger] Pulse Rate from SpO2 Sensor Pulse Rhythm Regular Respiratory Rate 24 22 Blood Pressure 108/62 Blood Pressure [Right Arm] Blood Pressure Mean 77 Blood Pressure Mean [Right Arm] Pulse Oximetry 94 Oxygen Delivery Method Room Air 04/23/19 12:08 04/23/19 12:30 04/23/19 13:00 Temperature Temperature Source Sepsis Recent Fever Within 48 Hours Sepsis Action Taken by Nursing Pulse Rate 65 68 69 Pulse Rate [Finger] Pulse Rate from SpO2 Sensor Pulse Rhythm Respiratory Rate 25 H 23 20 Blood Pressure Blood Pressure [Right Arm] Blood Pressure Mean Blood Pressure Mean [Right Arm] Pulse Oximetry Oxygen Delivery Method 04/23/19 13:04 04/23/19 13:21 04/23/19 13:30 Temperature Temperature Source Sepsis Recent Fever Within 48 Hours Sepsis Action Taken by Nursing Pulse Rate 70 72 68 Pulse Rate [Finger] Pulse Rate from SpO2 Sensor Pulse Rhythm Respiratory Rate 29 H 28 H 26 H Blood Pressure 110/66 141/76 H Blood Pressure [Right Arm] Blood Pressure Mean 80 97 Blood Pressure Mean [Right Arm] Pulse Oximetry Oxygen Delivery Method 04/23/19 13:31 04/23/19 13:32 04/23/19 13:40 Temperature Temperature Source Sepsis Recent Fever Within 48 Hours Sepsis Action Taken by Nursing Pulse Rate 69 69 70 Pulse Rate [Finger] Pulse Rate from SpO2 Sensor Pulse Rhythm Respiratory Rate 23 25 H 31 H Blood Pressure 137/68 Blood Pressure [Right Arm] Blood Pressure Mean 91 Blood Pressure Mean [Right Arm] Pulse Oximetry Oxygen Delivery Method 04/23/19 13:50 04/23/19 14:00 04/23/19 14:01 Temperature Temperature Source Sepsis Recent Fever Within 48 Hours Sepsis Action Taken by Nursing Pulse Rate 69 77 75 Pulse Rate [Finger] Pulse Rate from SpO2 Sensor Pulse Rhythm Respiratory Rate 26 H 32 H 23 Blood Pressure 145/70 H Blood Pressure [Right Arm] Blood Pressure Mean 95 Blood Pressure Mean [Right Arm] Pulse Oximetry 96 Oxygen Delivery Method Room Air 04/23/19 14:10 04/23/19 14:20 04/23/19 14:30 Temperature Temperature Source Sepsis Recent Fever Within 48 Hours Sepsis Action Taken by Nursing Pulse Rate 71 86 76 Pulse Rate [Finger] Pulse Rate from SpO2 Sensor Pulse Rhythm Respiratory Rate 27 H 27 H 24 Blood Pressure Blood Pressure [Right Arm] Blood Pressure Mean Blood Pressure Mean [Right Arm] Pulse Oximetry Oxygen Delivery Method 04/23/19 14:40 04/23/19 14:44 04/23/19 14:45 Temperature Temperature Source Sepsis Recent Fever Within 48 Hours Sepsis Action Taken by Nursing Pulse Rate 87 73 Pulse Rate [Finger] 73 Pulse Rate from SpO2 Sensor Pulse Rhythm Respiratory Rate 22 18 21 Blood Pressure 126/69 Blood Pressure [Right Arm] 126/69 Blood Pressure Mean 88 Blood Pressure Mean [Right Arm] 88 Pulse Oximetry 97 Oxygen Delivery Method 04/23/19 14:50 04/23/19 15:00 04/23/19 15:01 Temperature Temperature Source Sepsis Recent Fever Within 48 Hours Sepsis Action Taken by Nursing Pulse Rate 76 85 73 Pulse Rate [Finger] Pulse Rate from SpO2 Sensor Pulse Rhythm Respiratory Rate 19 16 24 Blood Pressure 137/49 L Blood Pressure [Right Arm] Blood Pressure Mean 78 Blood Pressure Mean [Right Arm] Pulse Oximetry 97 Oxygen Delivery Method Room Air 04/23/19 15:02 04/23/19 15:30 Temperature Temperature Source Sepsis Recent Fever Within 48 Hours Sepsis Action Taken by Nursing Pulse Rate 73 74 Pulse Rate [Finger] Pulse Rate from SpO2 Sensor Pulse Rhythm Respiratory Rate 17 31 H Blood Pressure 138/64 Blood Pressure [Right Arm] Blood Pressure Mean 88 Blood Pressure Mean [Right Arm] Pulse Oximetry 96 Oxygen Delivery Method Room Air GENERAL: Patient is listless, slow to answer questions, but follows commands. No acute distress. Patient is resting comfortably and showing no signs of anxiety EYES: The conjunctivae are clear. The pupils are round and reactive. EARS, NOSE, MOUTH AND THROAT: The nose is without any evidence of any deformity. Mucous membranes are moist.Tongue is midline NECK: The neck is nontender and supple. RESPIRATORY: Diminished breath sounds at the left base. Scattered rhonchi noted throughout. CARDIOVASCULAR: Regular rate and rhythm noted to auscultation. There was a systolic murmur noted. GASTROINTESTINAL: The abdomen is soft. Bowel sounds are present in all quadrants. Abdomen is nontender. MUSCULOSKELETAL/EXTREMITIES: There is no evidence of gross deformity. Full range of motion is noted in the hips and shoulders. Pain with ROM of right knee consistent with patient's recent fracture history. SKIN: Pedal edema noted bilaterally.There is no obvious evidence of any rash. There are no petechiae, pallor or cyanosis noted. NEUROLOGIC: Patient is listless and slow to answer questions. He appears to be oriented to person, place, and situation. Course 1153: The patient was evaluated in room C10. A complete history and physical exam was performed. 1450: I reevaluated the patient and updated her on her test results. I discussed the treatment plan with her. She verbally agrees and understands. 1500: I discussed the patiet's case [facility] She will evaluate the patient for further management. Consultations Consultation #1: I discussed the patidulce's case with Katelyn Le PA-C -[facility] Hospitalist. She will evaluate the patient for further management. Time: 15:00 Administered Medications Sodium Chloride (Nss 1000ml) 1,000 mls @ 150 mls/hr IV .Q6H40M FERNANDA Stop: 04/24/19 18:54 Last Admin: 04/23/19 18:18 Dose: 150 mls/hr Documented by: [id number] Propranolol HCl (Inderal) 20 mg PO BID FERNANDA Stop: 05/23/19 20:59 Last Admin: 04/23/19 20:12 Dose: 20 mg Documented by: [id number] Discontinued Medications Sodium Chloride (Nss 1000ml) 1,000 mls @ 999 mls/hr IV .Q1H1M FERNANDA Stop: 04/23/19 13:00 Last Infusion: 04/23/19 13:09 Dose: 0 mls/hr Documented by: [id number] Admin: 04/23/19 12:07 Dose: 999 mls/hr Documented by: [id number] Sodium Chloride (Nss 1000ml) 1,000 mls @ 999 mls/hr IV .Q1H1M ONE Stop: 04/23/19 15:51 Last Infusion: 04/23/19 16:05 Dose: 0 mls/hr Documented by: [id number] Admin: 04/23/19 15:04 Dose: 999 mls/hr Documented by: [id number] Medical Decision Making Differential Diagnosis Differential diagnoses includes but is not limited to toxic, metabolic, infectious, traumatic, cardiac, neurologic, hematologic, psychiatric and inflammatory etiologies. Medical Records Attestation: I reviewed the patient's medical records. Home Medications Current Medication List: was personally reviewed by me Laboratory Data Attestation: I reviewed the patient's lab results. Result diagrams: 04/23/19 12:54 04/23/19 12:54 Lab Results 04/23/19 04/23/19 04/23/19 Range/Units 12:54 12:54 12:54 WBC (4.8-10.8) K/uL RBC (4.2-5.4) M/uL Hgb (12.0-16.0) g/dL Hct (37-47) % MCV (80-100) fL MCH (25-34) pg MCHC (32-36) g/dL RDW Std Deviation (36.4-46.3) fL RDW Coeff of Consuelo (11.5-14.5) % Plt Count (130-400) K/uL MPV (7.4-10.4) fL Immature Gran % (Auto) % Neut % (Auto) % Lymph % (Auto) % Pinal % (Auto) % Eos % (Auto) % Baso % (Auto) % Immature Gran # (Auto) (0.00-0.02) K/uL Neut # (Auto) (1.4-6.5) K/uL Lymph # (Auto) (1.2-3.4) K/uL Pinal # (Auto) (0.11-0.59) K/uL Eos # (Auto) (0-0.5) K/uL Baso # (Auto) (0-0.2) K/uL PT 10.9 (9.0-12.0) Seconds INR 1.1 (0.9-1.1) APTT 24.4 (21.0-31.0) Seconds PTT Ratio 0.9 VBG pH VBG pCO2 VBG pO2 VBG HCO3 VBG O2 Saturation VBG Base Excess Barometric Pressure Sodium (136-145) mmol/L Potassium (3.5-5.1) mmol/L Chloride (98-107) mmol/L Carbon Dioxide (21-32) mmol/L Anion Gap (3-11) BUN (7-18) mg/dl Creatinine (0.6-1.2) mg/dl Est Cr Clr Drug Dosing ml/min Est GFR ( Amer) Est GFR (Non-Af Amer) BUN/Creatinine Ratio (10-20) Glucose (70-99) mg/dl Calcium (8.5-10.1) mg/dl Magnesium (1.8-2.4) mg/dl Total Bilirubin (0.2-1) mg/dl AST (15-37) U/L ALT (12-78) U/L Alkaline Phosphatase (45-117) U/L Ammonia 23.2 (11-32) umol/L Total Creatine Kinase (26-192) U/L Troponin I (0-0.045) ng/ml Total Protein (6.4-8.2) gm/dl Albumin (3.4-5.0) gm/dl Globulin (2.5-4.0) gm/dl Albumin/Globulin Ratio (0.9-2) TSH (0.300-4.500) uIu/ml Free T4 (0.8-1.6) ng/dl Rhine 4.3 H* (0.6-1.2) mmol/L Ethyl Alcohol mg/dL (0-3) mg/dl 04/23/19 04/23/19 04/23/19 Range/Units 12:54 12:54 12:54 WBC 8.47 (4.8-10.8) K/uL RBC 3.34 L (4.2-5.4) M/uL Hgb 10.2 L (12.0-16.0) g/dL Hct 30.8 L (37-47) % MCV 92.2 (80-100) fL MCH 30.5 (25-34) pg MCHC 33.1 (32-36) g/dL RDW Std Deviation 45.4 (36.4-46.3) fL RDW Coeff of Consuelo 13.4 (11.5-14.5) % Plt Count 264 (130-400) K/uL MPV 9.5 (7.4-10.4) fL Immature Gran % (Auto) 0.2 % Neut % (Auto) 79.3 % Lymph % (Auto) 11.7 % Pinal % (Auto) 6.1 % Eos % (Auto) 2.6 % Baso % (Auto) 0.1 % Immature Gran # (Auto) 0.02 (0.00-0.02) K/uL Neut # (Auto) 6.71 H (1.4-6.5) K/uL Lymph # (Auto) 0.99 L (1.2-3.4) K/uL Pinal # (Auto) 0.52 (0.11-0.59) K/uL Eos # (Auto) 0.22 (0-0.5) K/uL Baso # (Auto) 0.01 (0-0.2) K/uL PT (9.0-12.0) Seconds INR (0.9-1.1) APTT (21.0-31.0) Seconds PTT Ratio VBG pH Cancelled VBG pCO2 Cancelled VBG pO2 Cancelled VBG HCO3 Cancelled VBG O2 Saturation Cancelled VBG Base Excess Cancelled Barometric Pressure Cancelled Sodium (136-145) mmol/L Potassium (3.5-5.1) mmol/L Chloride (98-107) mmol/L Carbon Dioxide (21-32) mmol/L Anion Gap (3-11) BUN (7-18) mg/dl Creatinine (0.6-1.2) mg/dl Est Cr Clr Drug Dosing ml/min Est GFR ( Amer) Est GFR (Non-Af Amer) BUN/Creatinine Ratio (10-20) Glucose (70-99) mg/dl Calcium (8.5-10.1) mg/dl Magnesium (1.8-2.4) mg/dl Total Bilirubin (0.2-1) mg/dl AST (15-37) U/L ALT (12-78) U/L Alkaline Phosphatase (45-117) U/L Ammonia (11-32) umol/L Total Creatine Kinase (26-192) U/L Troponin I (0-0.045) ng/ml Total Protein (6.4-8.2) gm/dl Albumin (3.4-5.0) gm/dl Globulin (2.5-4.0) gm/dl Albumin/Globulin Ratio (0.9-2) TSH (0.300-4.500) uIu/ml Free T4 (0.8-1.6) ng/dl Rhine (0.6-1.2) mmol/L Ethyl Alcohol mg/dL < 3.0 (0-3) mg/dl 04/23/19 04/23/19 04/23/19 Range/Units 12:54 13:59 15:51 WBC (4.8-10.8) K/uL RBC (4.2-5.4) M/uL Hgb (12.0-16.0) g/dL Hct (37-47) % MCV (80-100) fL MCH (25-34) pg MCHC (32-36) g/dL RDW Std Deviation (36.4-46.3) fL RDW Coeff of Consuelo (11.5-14.5) % Plt Count (130-400) K/uL MPV (7.4-10.4) fL Immature Gran % (Auto) % Neut % (Auto) % Lymph % (Auto) % Pinal % (Auto) % Eos % (Auto) % Baso % (Auto) % Immature Gran # (Auto) (0.00-0.02) K/uL Neut # (Auto) (1.4-6.5) K/uL Lymph # (Auto) (1.2-3.4) K/uL Pinal # (Auto) (0.11-0.59) K/uL Eos # (Auto) (0-0.5) K/uL Baso # (Auto) (0-0.2) K/uL PT (9.0-12.0) Seconds INR (0.9-1.1) APTT (21.0-31.0) Seconds PTT Ratio VBG pH 7.35 L VBG pCO2 33 L VBG pO2 25 VBG HCO3 18 VBG O2 Saturation < 60.0 VBG Base Excess -6.6 Barometric Pressure 733.3 Sodium 134 L (136-145) mmol/L Potassium 4.5 (3.5-5.1) mmol/L Chloride 113 H (98-107) mmol/L Carbon Dioxide 19 L (21-32) mmol/L Anion Gap 2.0 L (3-11) BUN 18 (7-18) mg/dl Creatinine 1.46 H (0.6-1.2) mg/dl Est Cr Clr Drug Dosing 75.6 ml/min Est GFR ( Amer) 52.0 Est GFR (Non-Af Amer) 44.9 BUN/Creatinine Ratio 12.5 (10-20) Glucose 88 (70-99) mg/dl Calcium 9.1 (8.5-10.1) mg/dl Magnesium 2.6 H (1.8-2.4) mg/dl Total Bilirubin 0.3 (0.2-1) mg/dl AST 11 L (15-37) U/L ALT 25 (12-78) U/L Alkaline Phosphatase 145 H (45-117) U/L Ammonia (11-32) umol/L Total Creatine Kinase 63 (26-192) U/L Troponin I < 0.015 (0-0.045) ng/ml Total Protein 6.5 (6.4-8.2) gm/dl Albumin 3.4 (3.4-5.0) gm/dl Globulin 3.1 (2.5-4.0) gm/dl Albumin/Globulin Ratio 1.1 (0.9-2) TSH 0.189 L (0.300-4.500) uIu/ml Free T4 1.33 (0.8-1.6) ng/dl Rhine 4.0 H* (0.6-1.2) mmol/L Ethyl Alcohol mg/dL (0-3) mg/dl Imaging Data Radiologist's Impression: Radiology results as stated below per my review and the radiologist's interpretation: XR chest 1V portable CLINICAL HISTORY: 38 years-old Female presenting with weakness. TECHNIQUE: Portable upright AP view of the chest was obtained. COMPARISON: Chest CT from 02/18/2019 and chest x-ray from 11/07/2018. FINDINGS: Cardiac silhouette top normal in size. Mildly low lung volumes. No focal opacity. No large effusion or pneumothorax. Osseous structures normal. Upper abdomen normal. IMPRESSION: 1. Mildly low lung volumes with hypoventilatory changes. No convincing evidence of acute cardiopulmonary disease. Electronically signed by: Manolo Banerjee M.D. 04/23/2019 1:[address] head/brain wo con CLINICAL HISTORY: 38 years-old Female presenting with altered, increasing confusion, abnormal behavior, change of medication on Friday, reported fall yesterday with injury to right leg and head, pain in the hand and right upper leg, disoriented to time. TECHNIQUE: Multidetector CT imaging of the head was performed without the use of intravenous contrast. IV contrast: None. One or more dose lowering techniques were used consistent with the principles of ALARA (as low as reasonably achievable), including automatic exposure control, mA or kV adjustment to individual patient size, and/or use of iterative reconstruction. COMPARISON: 02/18/2019. CT DOSE (mGy.cm): The estimated cumulative dose is 1277.12 mGycm. FINDINGS: Rn Neonatal topogram: Unremarkable. Ventricles and sulci normal in size. Calcified foci in the subependymal region of the lateral ventricles. No hemorrhage. Brain parenchyma normal in appearance with preserved vernon-white differentiation. No acute territorial infarct. No mass effect or midline shift. No extra-axial fluid collection. Paranasal sinuses and mastoid air cells clear. Calvarium intact. IMPRESSION: 1. No acute intracranial abnormality. 2. Subacute minimal calcified foci again could suggest underlying tuberous sclerosis or prior infection. Electronically signed by: Manolo Banerjee M.D. 04/23/2019 1:25 PM ECG Data Attestation: I personally reviewed and interpreted this ECG as follows: Indication: altered mental status Rate (beats per minute): 69 Rhythm: normal sinus Findings: + T-wave inversion (anterior); no PAC, no PVC, no ST elevation and no ectopy Comparison ECG Date: from (02/18/2019) Change: no significant change Blood Pressure Blood Pressure Findings: Normal blood pressure Blood Pressure Disposition: did not require urgent referral MDM Narrative The patient is a 38-year-old female who presented to the emergency department for an evaluation of altered mental status. The patient has had frequent falls. She was seen in our facility recently for an injury to her right knee. She returns emergency department today with worsening of symptoms. The patient was treated with IV fluids in the emergency department. The patient did appear to have an elevation in her creatinine compared to baseline. The patient's lithium level was elevated. I do feel this is the cause of the patient's symptoms at this time. I discussed the patient's laboratory and radiographic studies with her. I also discussed her case with the on-call [facility] hospitalist group. They have agreed to evaluate the patient in the emergency department for further management and disposition. Impression & Plan Altered mental status, Rhine toxicity Discharge Plan Visit Data *Final* Discharge Date/Time: 04/23/19 16:52 Chief Complaint: Confusion Other Complaint: Fall ED Provider: Kevin Cardoso Discharge Problem: Altered mental status, Rhine toxicity Patient Disposition: Admitted As Inpatient Discharge Instructions Interventions: ED Discharge Assessment Last Done: 04/23/19 16:52 Discharge Problem: Altered mental status Qualifiers: Altered mental status type: unspecified Qualified Code(s): R41.82 - Altered mental status, unspecified Rhine toxicity Qualifiers: Encounter type: initial encounter Injury intent: undetermined intent Qualified Code(s): T56.894A - Toxic effect of other metals, undetermined, initial encounter The scribe's documentation has been prepared under my direction and personally reviewed by me in its entirety. I confirm that the note above accurately reflects all work, treatment, procedures, and medical decision making performed by me.
--- NOTE | 2019-04-23 15:43 | History & Physical Report ---
Date of Service April 23, 2019 Assessment & Plan (1) [place] toxicity: She has noted to be confused for the last few days She has been on lithium carbonate ER 450 mg 2 tablets daily with lithium carbonate via 300 mg 1 tablet daily She did not have any nausea vomiting and/or diarrhea or any neurological symptoms Her lithium level was 4.3 at emergency room She received intravenous fluid with normal saline and will repeat the level if it is more than 4 with nephrology for possible dialysis Admit her to [facility] telemetry unit Continue with aggressive intravenous fluid and monitor lithium level which will be on hold for now (2) Bipolar disorder: We will continue current medication except with (3) Major depressive disorder: Continue her usual medications (4) Metabolic encephalopathy: Likely secondary to lithium toxicity Monitoring medical telemetry unit (5) VIANNEY (acute kidney injury): Has acute renal impairment likely secondary to dehydration We will give intravenous fluid and advised adequate fluid intake orally Monitor PRP Hold lisinopril and NSAID use (6) Hypertension: Blood pressure seems to be controlled continue current medications We will hold lisinopril We will give clonidine p.o. as needed for blood pressure control History of Present Illness Chief Complaint: Weakness, confusion and recurrent falls for the last 2 to 3 days Primary Care Provider: Nurys Acuña DO She is a 38-year-old female obese with a significant past medical history including bipolar disorder, major depressive disorder, hypertension, borderline IV, GERD and anxiety has been complaining of increasing confusion for the last few days. She lives in the [facility] and she was noted to have frequent falls for the last few days. She came to ER yesterday with knee pain and are sent back to [facility]. She is back again today with increasing confusion. She has not been able to give her history properly but she denies any acute symptoms. She has noted to be very dry in the emergency room with increasing BUN and creatinine and her lithium level was noted to be high at 4.3. Her lithium level seems to be chronic she denies any nausea and/or vomiting or diarrhea associated with it she does not have any neurological symptoms. She has been receiving adequate intravenous fluid in the emergency room and she was admitted to medical telemetry unit for continuation of care. Allergies Allergy/AdvReac Type Severity Reaction Status Date / Time pollen extracts Allergy Intermediate ITCHY Verified 04/23/19 12:40 WATERY EYES, RUNNY NOSE, PUFFY EYES Home Medications Home Medications Medication Instructions Recorded Confirmed Type bupropion HCl 300 mg PO QAM 11/07/18 04/23/19 History lithium carbonate 300 mg PO QAM 11/07/18 04/23/19 History lithium carbonate 450 mg PO HS 11/07/18 04/23/19 History medroxyprogesterone [Depo-Provera] 150 mg IM Q3M 11/07/18 04/23/19 History venlafaxine 75 mg PO QAM 11/07/18 04/23/19 History venlafaxine 150 mg PO QAM 11/07/18 04/23/19 History melatonin 6 mg PO HS 11/23/18 04/23/19 History propranolol 20 mg PO BID 11/23/18 04/23/19 History hydrocodone-acetaminophen 1 tab PO Q8H PRN #14 tab 02/18/19 04/23/19 Rx lisinopril 5 mg PO QAM 02/18/19 04/23/19 History omeprazole 20 mg PO QAM 02/18/19 04/23/19 History meloxicam 15 mg PO QAM 04/22/19 04/23/19 History sertraline 25 mg PO QAM 04/22/19 04/23/19 History Past Med/Surg History Medical History Anxiety GERD (gastroesophageal reflux disease) Idiopathic borderline intellectual disability Major depressive disorder Bipolar disorder Hypertension Family history non-contributory Fracture of right tibial plateau Anemia (Acute) Tinea corporis (Acute) Surgical History No pertinent past surgical history Family History Other Family history non-contributory Social History marital status: Single Current Living Situation: Personal Care Facility current occupational status: disabled Feels Safe at Home: Yes Smoking Status: Never smoker Review of Systems Review of Systems: All systems reviewed & are unremarkable except as noted in HPI & below Physical Exam 2 Physical Exam: Moderate discomfort at rest with acute confusion Constitutional: well developed, well nourished, + ill appearing and + morbidly obese Eyes: PERRL, conjunctivae normal, anicteric sclerae ENMT: external ear and nose normal, oropharynx normal Neck: trachea midline, no thyromegaly Respiratory: + respiratory distress (Minimal respiratory distress) Cardiovascular: Rate/Rhythm: regular rate and regular rhythm Gastrointestinal (Abdomen): Inspection/Auscultation: abdomen normal to inspection and normal bowel sounds Percussion/Palpation: abdomen soft; abdomen nontender Musculoskeletal: No acute arthritis in any joints Neurologic: Alert and awake. Confused with generalized weakness. No focal neuro deficit Psychiatric: Orientation: alert Affect: + depressed affect and + anxious affect Insight: + limited insight Lymphatic: no cervical or axillary lymphadenopathy Results & Data Vital Signs (Past 12 Hours) Vital Signs Temp Pulse Pulse Resp BP BP Pulse Ox 04/23/19 15:01 73 24 137/49 L 97 04/23/19 15:00 85 16 04/23/19 14:50 76 19 04/23/19 14:45 73 21 126/69 04/23/19 14:44 73 18 126/69 97 04/23/19 14:40 87 22 04/23/19 14:30 76 24 04/23/19 14:20 86 27 H 04/23/19 14:10 71 27 H 04/23/19 14:01 75 23 145/70 H 96 04/23/19 14:00 77 32 H 04/23/19 13:50 69 26 H 04/23/19 13:40 70 31 H 04/23/19 13:32 69 25 H 04/23/19 13:31 69 23 137/68 04/23/19 13:30 68 26 H 04/23/19 13:21 72 28 H 141/76 H 04/23/19 13:04 70 29 H 110/66 04/23/19 13:00 69 20 04/23/19 12:30 68 23 04/23/19 12:08 65 25 H 04/23/19 12:07 70 22 108/62 04/23/19 12:02 65 94 04/23/19 12:00 67 24 04/23/19 11:33 65 22 94 04/23/19 11:31 36.9 C 66 22 110/68 94 04/23/19 11:30 66 21 110/68 94 Laboratory Results Short CBC 04/23/19 Range/Units 12:54 WBC 8.47 (4.8-10.8) K/uL Hgb 10.2 L (12.0-16.0) g/dL Hct 30.8 L (37-47) % Plt Count 264 (130-400) K/uL BMP 04/23/19 12:54 Sodium 134 L Potassium 4.5 Chloride 113 H Carbon Dioxide 19 L BUN 18 Creatinine 1.46 H Glucose 88 Calcium 9.1 Cardiac Enzymes 04/23/19 Range/Units 12:54 Total Creatine Kinase 63 (26-192) U/L Troponin I < 0.015 (0-0.045) ng/ml Liver Function 04/23/19 Range/Units 12:54 Total Bilirubin 0.3 (0.2-1) mg/dl AST 11 L (15-37) U/L ALT 25 (12-78) U/L Alkaline Phosphatase 145 H (45-117) U/L Albumin 3.4 (3.4-5.0) gm/dl Medications Administered Current Inpatient Medications Sodium Chloride (Nss 1000ml) 1,000 mls @ 999 mls/hr IV .Q1H1M ONE Stop: 04/23/19 15:51 Last Admin: 04/23/19 15:04 Dose: 999 mls/hr Documented by: Code Status & VTE Plan Code Status Full code VTE Prophylaxis Plan VTE Prophylaxis will be ordered: Yes (1) [place] toxicity Encounter type: initial encounter Injury intent: undetermined intent Qualified Code(s): T56.894A - Toxic effect of other metals, undetermined, initial encounter
[2019-04-23] MEDS ORDERED: cloNIDine HCl 0.1 MG TAB PO PRN (16:05)
[2019-04-23] MEDS ORDERED: MEDROXYPROGESTERONE ACETATE 150 MG/ML VIAL IM SCH (17:04)
[2019-04-23] MEDS: SODIUM CHLORIDE 0.9% 1000ML 1,000 ML IV SCH (18:18)
[2019-04-23] MEDS: PROPRANOLOL HCL 20 MG TAB PO SCH (20:12)
[2019-04-23] MEDS ORDERED: NON-FORMULARY MEDICATION (Melatonin 6 MG) PO SCH (21:00)
[2019-04-23] MEDS: HEPARIN SOD 5,000 UNIT/0.5 ML VIAL SQ SCH (21:08)
[2019-04-24] MEDS: SODIUM CHLORIDE 0.9% 1000ML 1,000 ML IV SCH ×3 (00:48→12:01)
[2019-04-24 00:49] LABS: BUN Creatinine Ratio 12.3 (10-20); Calcium 8.5 mg/dl (8.5-10.1); Creatinine Clr Calc Pharmacy 97.2 ml/min; Est GFR (African American) 64.6; Est GFR (Non-African American) 55.8; Potassium 4.3 mmol/L (3.5-5.1)
[2019-04-24 05:41] LABS: Basophils # (auto) 0.01 K/uL (0-0.2); Basophils % (auto) 0.1 %; Eosinophils # (auto) 0.31 K/uL (0-0.5); Eosinophils % (auto) 3.8 %; Hematocrit (blood only) 29.1 % (37-47); Hemoglobin 9.5 g/dL (12.0-16.0); Immature Granulocytes # (auto) 0.02 K/uL (0.00-0.02); Immature Granulocytes % (auto) 0.2 %; Lymphocytes # (auto) 1.72 K/uL (1.2-3.4); Lymphocytes % (auto) 21.1 %; Mean Corpuscular Hgb Conc 32.6 g/dL (32-36); Mean Corpuscular Volume 92.4 fL (80-100); Mean Platelet Volume 9.3 fL (7.4-10.4); Monocytes # (auto) 0.58 K/uL (0.11-0.59); Monocytes % (auto) 7.1 %; Neutrophils # (auto) 5.52 K/uL (1.4-6.5); Neutrophils % (auto) 67.7 %; Platelet Count 238 K/uL (130-400); RDW Coefficient of Variation 13.4 % (11.5-14.5); RDW Standard Deviation 45.3 fL (36.4-46.3); Red Blood Count 3.15 M/uL (4.2-5.4); White Blood Count 8.16 K/uL (4.8-10.8)
[2019-04-24] MEDS: HEPARIN SOD 5,000 UNIT/0.5 ML VIAL SQ SCH ×3 (06:05→23:22)
[2019-04-24 06:06] LABS: BUN Creatinine Ratio 11.1 (10-20); Calcium 9.2 mg/dl (8.5-10.1); Creatinine Clr Calc Pharmacy 101.4 ml/min; Est GFR (Non-African American) 58.7
[2019-04-24] MEDS: VENLAFAXINE HCL XR 75 MG CAPXR PO SCH (07:45)
[2019-04-24] MEDS: BuPROPion XL 300 MG TABCR PO SCH (07:45)
[2019-04-24] MEDS: PROPRANOLOL HCL 20 MG TAB PO SCH ×2 (07:45→20:12)
[2019-04-24] MEDS: PANTOprazole 40 MG TAB PO SCH (07:45)
--- NOTE | 2019-04-24 08:19 | Hospitalist Progress Note ---
Date of Service April 24, 2019 Assessment & Plan (1) [place] toxicity: Noted to be confused for the last few days and few falls -Home regimen: lithium carbonate ER 450 mg 2 tablets daily with lithium carbonate via 300 mg 1 tablet daily--> Hold -No nausea vomiting and/or diarrhea or any neurological symptoms -[place] levels in ER- 4.3--> Repeat levels 3.7 -IV NS (2) Bipolar disorder: (3) Major depressive disorder: -Continue her usual medications- Venlafexine, Bupropion, Zoloft -Hold lithium -Consulted psychiatry (4) Metabolic encephalopathy: Likely secondary to lithium toxicity (5) VIANNEY (acute kidney injury): Improving Baseline- 0.8 . Presented with creatinine 1.46, now trending down -IV Fluids -Hold lisinopril and NSAID use -Monitor Trend (6) Hypertension: Stable -Hold lisinopril -On propranolol 20 mg PO BID DISPOSITION Medical mx in progress Subjective Patient is restless. Unable to get any history from her. Keeps mumbling that she wants a baby. Disoriented x3. Denies any pain. Not eating much Physical Exam Physical Exam: GENERAL- Awake, alert, disoriented x3, Restless, MORBIDLY OBESE + LUNGS- Air entry bilaterally equal. No rales, rhonchi, crackles, wheezes heard. HEART- Regular rate and rhythm. No murmurs ABDOMEN-not cooperative with exam EXTREMITIES- Good peripheral pulses, no edema NEUROMUSCULAR-grossly moving all extremities. Not cooperative with full exam Results & Data Vital Signs (Past 12 Hours) Vital Signs Temp Pulse Pulse Resp BP Pulse Ox 04/24/19 07:34 36.4 C L 74 20 122/72 98 04/24/19 04:00 37.0 C 89 20 151/69 H 94 04/24/19 00:00 36.8 C 73 72 20 145/77 H 100 04/23/19 20:31 36.9 C 72 18 144/93 H 100 (1) [place] toxicity Encounter type: initial encounter Injury intent: undetermined intent Qualified Code(s): T56.894A - Toxic effect of other metals, undetermined, initial encounter
[2019-04-24] MEDS ORDERED: SERTRALINE HCL 50 MG TABLET PO SCH (09:00)
[2019-04-24] MEDS ORDERED: VENLAFAXINE HCL XR 150 MG CAPXR PO SCH (09:00)
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
[2019-04-25] MEDS: HEPARIN SOD 5,000 UNIT/0.5 ML VIAL SQ SCH ×3 (06:05→20:59)
[2019-04-25] MEDS: PROPRANOLOL HCL 20 MG TAB PO SCH ×2 (08:29→20:57)
[2019-04-25] MEDS: VENLAFAXINE HCL XR 75 MG CAPXR PO SCH (08:29)
[2019-04-25] MEDS: BuPROPion XL 300 MG TABCR PO SCH (08:30)
[2019-04-25] MEDS: PANTOprazole 40 MG TAB PO SCH (08:30)
--- NOTE | 2019-04-25 10:17 | Hospitalist Progress Note ---
Date of Service April 25, 2019 Assessment & Plan (1) [place] toxicity: Noted to be confused for the last few days and few falls. Presented with lithium level of 4.0 and now down to 2.7 -Home regimen: lithium carbonate ER 450 mg 2 tablets daily with lithium carbonate via 300 mg 1 tablet daily--> Held since admission. Ok to restart at 450 mg PO BID once lithium level normalizes <0.8 per psyc -Repeat [place] levels 5 days after restarting [place] once level <0.8. After that 10-12 hours after dose prior to next dose to check level and kidney function. -No nausea vomiting and/or diarrhea or any neurological symptoms -IV NS -Informally discussed with nephrology about considering dialysis= as lithium and creatinine levels are improving, no indication for now -Discussed with psychiatry today as well (2) Bipolar disorder: Does have borderline intellectual functioning with bipolar disorder - depression Home regimen: [place] 450 mg PO BID, 300 mg nightly was recently added, Wellbutrin, sertraline, Effexor Held lithium since admission due to toxicity Discontinued sertraline as already on Wellbutrin and Effexor per psychiatry. -Psych to get further collateral from os is on Friday 04/27 (U liasion to coordinate with CHRISTOPHER and request) (3) Major depressive disorder: As above (4) Metabolic encephalopathy: DELIRIUM with agitative episodes Likely secondary to lithium toxicity in setting of borderline intellectual dysfunction with mood disorder -Psych recommends: Routine behavioral orientation skills (U liason to give handout to RN) -If more agitated, one-to-one observation with verbal soothing and redirection preferred overmedication -If severe agitation which is harmful to her or others, IV Haldol 5 mg every 4 hours as needed, hold for sedation while on telemetry and with QTC monitoring -Will try to avoid medications if possible (5) VIANNEY (acute kidney injury): Resolving Baseline- 0.8 . Presented with creatinine 1.46, now trending down -IV Fluids -Hold lisinopril and NSAID use -Monitor Trend (6) Hypertension: Stable -Hold lisinopril -On propranolol 20 mg PO BID DISPOSITION Medical mx in progress Subjective Patient is much calmer today. No overnight episodes of agitation. Unable to get any history from her. Keeps mumbling and unable to have a meaningful conversation. Disoriented x3. Denies any pain. Not eating much Physical Exam Physical Exam: GENERAL- Awake, alert, disoriented x3, Restless, MORBIDLY OBESE + LUNGS- Air entry bilaterally equal. No rales, rhonchi, crackles, wheezes heard. HEART- Regular rate and rhythm. No murmurs ABDOMEN-not cooperative with exam EXTREMITIES- Good peripheral pulses, no edema NEUROMUSCULAR-grossly moving all extremities. Not cooperative with full exam Results & Data Vital Signs (Past 12 Hours) Vital Signs Temp Pulse Pulse Resp BP Pulse Ox 04/25/19 07:51 36.7 C 72 18 133/84 97 04/25/19 04:00 36.7 C 74 20 130/78 98 04/25/19 00:00 36.8 C 66 72 20 129/80 99 (1) [place] toxicity Encounter type: initial encounter Injury intent: undetermined intent Qualified Code(s): T56.894A - Toxic effect of other metals, undetermined, initial encounter
[2019-04-26] MEDS: HEPARIN SOD 5,000 UNIT/0.5 ML VIAL SQ SCH ×3 (05:43→20:24)
[2019-04-26] MEDS: VENLAFAXINE HCL XR 75 MG CAPXR PO SCH (09:10)
[2019-04-26] MEDS: PROPRANOLOL HCL 20 MG TAB PO SCH ×2 (09:10→20:24)
[2019-04-26] MEDS: PANTOprazole 40 MG TAB PO SCH (09:11)
[2019-04-26] MEDS: BuPROPion XL 300 MG TABCR PO SCH (09:11)
--- NOTE | 2019-04-26 12:16 | Hospitalist Progress Note ---
Date of Service April 26, 2019 Assessment & Plan (1) [place] toxicity: Noted to be confused for the last few days and few falls. Presented with lithium level of 4.0 --> 3.8-->3.7-->2.7--> 2.1 -Home regimen: lithium carbonate ER 450 mg 2 tablets daily with lithium carbonate via 300 mg 1 tablet daily--> Held since admission. Ok to restart at 450 mg PO BID once lithium level normalizes <0.8 per psyc -Repeat [place] levels 5 days after restarting [place] once level <0.8. After that 10-12 hours after dose prior to next dose to check level and kidney function. -No nausea vomiting and/or diarrhea or any neurological symptoms -IV NS -Informally discussed with nephrology about considering dialysis= as lithium and creatinine levels are improving, no indication for now -Discussed with psychiatry today as well (2) Metabolic encephalopathy: DELIRIUM with agitative episodes Likely secondary to lithium toxicity in setting of borderline intellectual dysfunction with mood disorder -Psych recommends: Routine behavioral orientation skills (U liason to give handout to RN) -If more agitated, one-to-one observation with verbal soothing and redirection preferred overmedication -If severe agitation which is harmful to her or others, IV Haldol 5 mg every 4 hours as needed, hold for sedation while on telemetry and with QTC monitoring -Will try to avoid medications if possible--> Not required additional meds nor 1:1 so far -Work up- CT head-no acute abnormality, subacute minimal calcified foci suggesting underlying tuberous sclerosis or prior infection. UA- unable to collect (3) Bipolar disorder: Does have borderline intellectual functioning with bipolar disorder - depression Home regimen: [place] 450 mg PO BID, 300 mg nightly was recently added, Wel lbutrin, sertraline, Effexor Held lithium since admission due to toxicity Discontinued sertraline as already on Wellbutrin and Effexor per psychiatry. -Psych to get further collateral from os is on Friday 04/27 (U liasion to coordinate with CHRISTOPHER and request). Appreciate inputs (4) Major depressive disorder: As above (5) VIANNEY (acute kidney injury): Resolving Baseline- 0.8 . Presented with creatinine 1.46, now trending down 1.17 -S/P IVF -Hold lisinopril and NSAID use. -Monitor Trend (6) Hypertension: Slightly elevated -Hold lisinopril -On propranolol 20 mg PO BID DISPOSITION Medical mx in progress Subjective Patient is much calmer today. No overnight episodes of agitation. Unable to get any history from her. Keeps mumbling and unable to have a meaningful conversation. Disoriented x3. Denies any pain. Not eating much Unable to collect urine Physical Exam Physical Exam: GENERAL- Awake, alert, disoriented x3, Restless, MORBIDLY OBESE + LUNGS- Air entry bilaterally equal. No rales, rhonchi, crackles, wheezes heard. HEART- Regular rate and rhythm. No murmurs ABDOMEN-not cooperative with exam EXTREMITIES- Good peripheral pulses, no edema NEUROMUSCULAR-grossly moving all extremities. Not cooperative with full exam Results & Data Vital Signs (Past 12 Hours) Vital Signs Temp Pulse Resp BP Pulse Ox 04/26/19 12:08 36.8 C 58 L 20 148/96 H 93 04/26/19 07:55 36.6 C 78 22 144/71 H 96 04/26/19 04:00 36.9 C 73 18 126/77 96 (1) [place] toxicity Encounter type: initial encounter Injury intent: undetermined intent Qualified Code(s): T56.894A - Toxic effect of other metals, undetermined, initial encounter
[2019-04-26 22:40] LABS: Appearance Urine Clear (Clear); Bacteria Urine Automated 4+ (Negative); Bilirubin Urine Negative (Negative); Blood Urine 2+ (Negative); Cast Urine Automated 0 /lpf (0-5); Color Urine Yellow; Epithelial Cell Urine Auto >30 /lpf (0-5); Glucose Urine UA Negative (Negative); Ketones Urine Negative (Negative); Leukocyte Esterase Urine Trace (Negative); Nitrite Urine Positive (Negative); Protein Urine Negative (Negative); RBC Urine Automated 0-4 /hpf (0-4); Specific Gravity Urine 1.013 (1.000-1.030); Urobilinogen Urine Negative (Negative)
[2019-04-26 23:06] LABS: Amphetamines+Metham, Urine Neg (Neg); Barbiturates, Urine Neg (Neg); Benzodiazepine, Urine Neg (Neg); Cocaine, Urine Neg (Neg); MDMA (Ecstacy), Urine Pos (Neg); Methadone, Urine Neg (Neg); Opiate, Urine Neg (Neg); Phencyclidine, Urine Neg (Neg)
[2019-04-27] MEDS: HEPARIN SOD 5,000 UNIT/0.5 ML VIAL SQ SCH ×3 (06:32→22:27)
--- NOTE | 2019-04-27 10:45 | Hospitalist Progress Note ---
Date of Service April 27, 2019 Assessment & Plan (1) [place] toxicity: Noted to be confused for the last few days and few falls. Presented with lithium level of 4.0 --> 3.8-->3.7-->2.7--> 2.1-->1.9 -Home regimen: [place] carbonate ER 450 mg 2 tablets daily with lithium carbonate via 300 mg 1 tablet daily--> Held since admission. Ok to restart at 450 mg PO BID once lithium level normalizes <0.8 per psychiatry -Repeat [place] levels 5 days after restarting [place] once level <0.8. After that 10-12 hours after dose prior to next dose to check level and kidney function. -S/P IVF, now no IV Line -Informally discussed with nephrology about considering dialysis= as lithium and creatinine levels are improving, no indication as lithium levels are improving -Psychiatry on board. (2) Metabolic encephalopathy: DELIRIUM with agitative episodes Likely secondary to lithium toxicity in setting of borderline intellectual dysfunction with mood disorder. Urine drug screen on 04/26 came back positive for Ecstacy. -Psych recommends: Routine behavioral orientation skills (U liason to give handout to RN) -If more agitated, one-to-one observation with verbal soothing and redirection preferred overmedication -If severe agitation which is harmful to her or others, IV Haldol 5 mg every 4 hours as needed, hold for sedation while on telemetry and with QTC monitoring (not ordered) -Will try to avoid medications if possible--> Not required additional meds nor 1:1 so far -Work up- CT head-no acute abnormality, subacute minimal calcified foci suggesting underlying tuberous sclerosis or prior infection. UA- unable to collect (3) Bipolar disorder: Does have borderline intellectual functioning with bipolar disorder -depression Home regimen: [place] 450 mg PO BID, 300 mg nightly was recently added, Wellbutrin, sertraline, Effexor Held lithium since admission due to toxicity Discontinued sertraline as already on Wellbutrin and Effexor per psychiatry. -Psych to get further collateral from os is on Friday 04/27 (U liasion to coordinate with CHRISTOPHER and request). Appreciate inputs (4) Major depressive disorder: As above (5) VIANNEY (acute kidney injury): Resolved Baseline- 0.8 . Presented with creatinine 1.46, now trending down 1.17 -S/P IVF -Hold lisinopril and NSAID use. -Monitor Trend (6) Hypertension: Slightly elevated -Hold lisinopril -On propranolol 20 mg PO BID DISPOSITION Medical mx in progress PT/OT ordered today Following [place] levels and monitoring mental status response Subjective Patient was agitated overnight. She was trying to pull her IV and executive personal assistant and extremely agitated. No medication was administered overnight. Currently sleeping. Continues to have minimal p.o. intake Temporarily taken off executive personal assistant, IV line as she tries to pull it out Physical Exam Physical Exam: GENERAL- Currently sleepy MORBIDLY OBESE + LUNGS- Air entry bilaterally equal. No rales, rhonchi, crackles, wheezes heard. HEART- Regular rate and rhythm. No murmurs EXTREMITIES- Good peripheral pulses, no edema NEUROMUSCULAR-unable to evaluate Results & Data Vital Signs (Past 12 Hours) Vital Signs Temp Pulse Pulse Resp BP Pulse Ox 04/27/19 08:00 78 04/27/19 07:18 36.4 C L 83 16 125/77 98 04/27/19 03:19 36.8 C 77 20 123/77 97 04/27/19 00:42 65 04/26/19 22:49 37.2 C 75 20 138/83 96 (1) [place] toxicity Encounter type: initial encounter Injury intent: undetermined intent Qualified Code(s): T56.894A - Toxic effect of other metals, undetermined, initial encounter
[2019-04-27] MEDS: PANTOprazole 40 MG TAB PO SCH (11:41)
[2019-04-27] MEDS: PROPRANOLOL HCL 20 MG TAB PO SCH ×2 (11:41→20:34)
[2019-04-27] MEDS: BuPROPion XL 300 MG TABCR PO SCH (11:41)
[2019-04-27] MEDS: VENLAFAXINE HCL XR 75 MG CAPXR PO SCH (11:41)
[2019-04-28] MEDS: HEPARIN SOD 5,000 UNIT/0.5 ML VIAL SQ SCH ×3 (06:25→21:00)
[2019-04-28] MEDS: PROPRANOLOL HCL 20 MG TAB PO SCH ×2 (08:20→20:58)
[2019-04-28] MEDS: VENLAFAXINE HCL XR 75 MG CAPXR PO SCH (08:21)
[2019-04-28] MEDS: BuPROPion XL 300 MG TABCR PO SCH (08:22)
[2019-04-28] MEDS: PANTOprazole 40 MG TAB PO SCH (08:22)
[2019-04-28 09:08] LABS: Hematocrit (blood only) 33.1 % (37-47); Hemoglobin 11.2 g/dL (12.0-16.0); Mean Corpuscular Hgb Conc 33.8 g/dL (32-36); Mean Corpuscular Volume 89.9 fL (80-100); Mean Platelet Volume 9.1 fL (7.4-10.4); Platelet Count 364 K/uL (130-400); RDW Coefficient of Variation 13.3 % (11.5-14.5); Red Blood Count 3.68 M/uL (4.2-5.4); White Blood Count 10.05 K/uL (4.8-10.8)
[2019-04-28 09:43] LABS: BUN Creatinine Ratio 6.2 (10-20); Calcium 10.2 mg/dl (8.5-10.1); Creatinine Clr Calc Pharmacy 94.7 ml/min; Est GFR (African American) 66.6; Est GFR (Non-African American) 57.5; Potassium 4.1 mmol/L (3.5-5.1)
[2019-04-28] MEDS ORDERED: HALOPERIDOL LACTATE 5 MG/ML 1 ML VIAL IM PRN (12:43)
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
[2019-04-29] MEDS: HEPARIN SOD 5,000 UNIT/0.5 ML VIAL SQ SCH ×3 (05:52→21:22)
[2019-04-29] MEDS: BuPROPion XL 300 MG TABCR PO SCH (09:05)
[2019-04-29] MEDS: PANTOprazole 40 MG TAB PO SCH (09:05)
[2019-04-29] MEDS: PROPRANOLOL HCL 20 MG TAB PO SCH ×2 (09:06→19:58)
[2019-04-29] MEDS: VENLAFAXINE HCL XR 75 MG CAPXR PO SCH (09:06)
--- NOTE | 2019-04-29 13:58 | Psychiatric Progress Note ---
Date of Service April 29, 2019 Impression / Recommendations Impression Pt reassessed today following initial consultation on 04/24/19. [place] level reduced to 1.3 this morning, with recommendation to resume Lithobid 450mg BID after level returns to 0.8. Follow-up lithium level 5 days following lithium restart. Pt does not appear to be agitated or activated at time of conversation. She does have borderline intellectual functioning, but does not appear to be verbalizing any true delusional thoughts - rather some circumstantial remarks regarding staff at her personal long-term and events from her current admission. Speech is slow, and somewhat slurred - though baseline verbal ability is unclear. Could consider reduction of bupropion or venlafaxine if patient appears energized or activated - though this does not appear to be the case at this time. Would suggest continuing bupropion XL at 300mg and venlafaxine 225mg - as patient is not presenting with signs of [place] at this time. Continue to offer verbal encouragement and reinforcement in attempts to reduce need for prn medications. May consider PO option of haloperidol to be offered prior to IM use if necessary. Otherwise recommendations from initial consultation remain. Pt does not express SI/HI, clearly delusional thought content, or signs of manic presentation. She admits to some periods of visual disturbances, though is unable to describe an accurate timeline to this provider. Will continue to follow for medication recommendations until medical clearance, though it is not likely that she would meet criteria for inpatient psychiatric admission at discharge. Psychiatric nurse liaison to gather collateral from outpatient provider and personal long-term staff in order to determine proximity to baseline. Will attempt to coordinate aftercare plans and confirm outpatient appointments as able. Interval History Identifying Information The patient is a 38-year-old female with PMH of Tuberous sclerosis, Borderline intellectual function with history of some form of mood disorder (depression r/o bipolar), obesity, HTN, and anemia. Pt was admitted medically on 04/23/19 for lithium toxicity and associated delirium. Psychiatric consultation was requested for recommendations related to lithium toxicity. Initial consultation completed on 04/24/19. Chief Complaint "Well, when I first got here, I thought Oh no - this is just another trick." Review of Systems Notes Constitutional: reports fatigue Cardiovascular: denied Respiratory: denied Gastrointestinal: denied Neurological: denied Psychiatric: denies symptoms other than stated above Total of at least 10 systems reviewed, pertinent positives as above and in HPI. Subjective Subjective Patient was seen & assessed and interval progress reviewed with psychiatric nurse liaison. Upon this provider's entry into patient's room, she was found to be seated in a chair in no acute distress. Pt is agreeable to conversation with this provider. She states, "I'm ready to go home, I'm going to relax when I get back to my apartment." Treatment plan was explained to patient, who verbalized understanding that her lithium was being held due to very high levels. Pt states that her mood has been "just tired all day." She does not feel she is experiencing increased energy, hyperactivity, rapid speech, or racing thoughts. Pt gives vague reports of "a popcorn kernel outside my window" and "my friend's fingernails were THIS BIG." She gives the impression that these events happened several nights prior to our current encounter. Pt denies SI/HI or other specific psychiatric concerns today. Physical Exam Psychiatric Orientation: alert, oriented x 3 and cooperative (though requires some redirection) Apperance: + disheveled (Obese female, dressed in small-fitting hospital gown) Eye Contact: + poor eye contact (often staring straight ahead) Motor Behavior: no abnormal motor movements Ambulates with a rolling walker, slow cautious movements Speech: normal rate/rhythm/volume of speech (slurred speech/lisp - not rapid or over-productive) Affect: + blunted affect (does not appear overtly depressed, anxious, or activated/energized) "Just tired all day" Thought Process: + circumstantial thought process (often jumping between stories, requires frequent redirection) There is no clear evidence of delusional thought content Suicidal Thoughts: denies suicidal thoughts and denies suicidal plan Homicidal Thoughts: denies homicidal thoughts Hallucinations: no auditory hallucinations and no visual hallucinations denies recent events - reports previous hallucinations from several days ago Cognition: attention grossly intact and language grossly intact Estimated Intelligence: + below average estimated intelligence Insight: + limited insight (though likely chronic due to intellecutal functioning ) Judgement: + limited judgement (though likely chronic due to intellecutal functioning ) Vital Signs (Past 24 Hours) Last Vital Signs Temp 36.9 C 04/29/19 07:22 Pulse 70 04/29/19 07:22 Resp 20 04/29/19 07:22 BP 138/82 04/29/19 07:22 Pulse Ox 96 04/29/19 07:22 Results & Data Laboratory Results Laboratory Results - last 24 hr 04/28/19 04/29/19 12:33 07:53 [place] 1.5 H 1.3 H Current Inpatient Medications Current Inpatient Medications: Current Inpatient Medications Bup[facility]ion [facility] ([facility]Xl) [facility] [place]: 05/24/19 08:59 Last Admin: 04/29/19 09:05 Dose: 300 mg Documented by: Haloperidol Lactate (Haldol) 5 mg IM Q8 PRN PRN Reason: Agitation Stop: 05/28/19 12:42 Heparin Sodium (Porcine) (Heparin Sodium (Porcine)) 5,000 units SQ Q8 [facility] Stop: 05/23/19 21:59 Last Admin: 04/29/19 05:52 Dose: Not Given Documented by: Pantoprazole Sodium (Protonix) [facility] [place]: 05/24/19 08:59 Last Admin: 04/29/19 09:05 Dose: 40 mg Documented by: Propranolol HCl (Inderal) 20 mg PO BID [facility] Stop: 05/23/19 20:59 Last Admin: 04/29/19 09:06 Dose: 20 mg Documented by: Venlafaxine HCl (Effexor Extended Release) 225 [facility] [place]: 05/24/19 08:59 Last Admin: 04/29/19 09:06 Dose: 225 mg Documented by: CPT Code CPT Code 47071
--- NOTE | 2019-04-29 17:35 | Hospitalist Progress Note ---
Date of Service April 29, 2019 Assessment & Plan (1) [place] toxicity: Noted to be confused for the last few days and few falls. Presented with lithium level of 4.0 --->1.9-> 1.5 ->1.3 -Home regimen: [place] carbonate ER 450 mg 2 tablets daily with lithium carbonate via 300 mg 1 tablet daily--> Held since admission. appreciate input from psychiatry recommend to restart at lower dose 450 mg PO BID once lithium level normalizes <0.8 per psychiatry -need to Repeat [place] levels 5 days /After that 10-12 hours after dose prior to next dose to check level and kidney function. 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 Urine drug screen on 04/26 came back positive for Ecstacy. -Psych recommends: Routine behavioral orientation skills (U liason to give handout to RN) -If more agitated, one-to-one observation with verbal soothing and redirection preferred overmedication -If severe agitation which is harmful to her or others, IV Haldol 5 mg every 4 hours as needed, - - CT head-no acute abnormality, subacute minimal calcified foci suggesting underlying tuberous sclerosis or prior infection. Patient remains in very labile mood, disorganized idea, thought process Per psychiatry patient is approximate at her baseline, does not feel she is a threat to herself or other Recommend to return back to personal assisted with support (3) Bipolar disorder: lithium kept on hold secondary to elevated/toxic level Yesterday following (4) Major depressive disorder: As above (5) VIANNEY (acute kidney injury): Resolved Baseline- 0.8 . Presented with creatinine 1.46, now trending down 1.17 -S/P IVF Given patient's risk of dehydration, acute renal failure leading to lithium toxicity, will avoid diuretics, NSAIDs (6) Hypertension: -On propranolol 20 mg PO BID (7) Agitation: concern for pt's safety /self care noted to have severe agitation /poor insight /delusion with psychosis Continue to follow with psychiatry recommendation Subjective Still confused with disorganized thoughts, Laughing and crying and same sentence Physical Exam Constitutional: + obese, + altered mental status (agitated /combatiive ), + disheveled and + combative Eyes: PERRL, conjunctivae normal, anicteric sclerae + anicteric sclerae ENMT: external ear and nose normal, oropharynx normal Neck: trachea midline, no thyromegaly Respiratory: normal respiratory effort Cardiovascular: Rate/Rhythm: regular rate and regular rhythm Gastrointestinal (Abdomen): Inspection/Auscultation: abdomen normal to inspection and normal bowel sounds Percussion/Palpation: abdomen soft; abdomen nontender Psychiatric: Orientation: alert Apperance: + disheveled (obese, notable presense of pigmented patches on chin and jaw) Eye Contact: + poor eye contact Motor Behavior: + psychomotor agitation Speech: + pressured speech and + loud speech Affect: + labile affect Thought Process: + tangential thought process and + flight of ideas Thought Content: + preoccupation, + paranoid, + compulsions and + delusions Insight: + severely impaired insight Judgement: + severely impaired judgement Lymphatic: no cervical or axillary lymphadenopathy Results & Data Vital Signs (Past 12 Hours) Vital Signs Temp Pulse Resp BP BP Pulse Ox 04/29/19 15:26 36.5 C 79 18 155/90 H 97 04/29/19 07:22 36.9 C 70 20 138/82 96 (1) [place] toxicity Encounter type: initial encounter Injury intent: undetermined intent Qualified Code(s): T56.894A - Toxic effect of other metals, undetermined, initial encounter (2) Major depressive disorder Active/Remission status: remission status unspecified Major depression recurrence: recurrent Qualified Code(s): F33.9 - Major depressive disorder, recurrent, unspecified (3) Bipolar disorder Active/Remission status: currently active Current bipolar episode type: manic Current episode severity: severe Psychotic features: with psychotic features Qualified Code(s): F31.2 - Bipolar disorder, current episode manic severe with psychotic features (4) Hypertension Hypertension type: unspecified Qualified Code(s): I10 - Essential (primary) hypertension
[2019-04-29] MEDS: ACETAMINOPHEN 325 MG TAB PO PRN (19:58)
[2019-04-30] MEDS: HEPARIN SOD 5,000 UNIT/0.5 ML VIAL SQ SCH ×3 (05:24→21:01)
[2019-04-30] MEDS: BuPROPion XL 300 MG TABCR PO SCH (07:52)
[2019-04-30] MEDS: PANTOprazole 40 MG TAB PO SCH (07:52)
[2019-04-30] MEDS: PROPRANOLOL HCL 20 MG TAB PO SCH ×2 (07:52→21:02)
[2019-04-30] MEDS: VENLAFAXINE HCL XR 75 MG CAPXR PO SCH (07:53)
[2019-04-30] MEDS: SULFAMETHOXAZOLE/TRIMETHOPRIM DS 800/160MG TAB PO SCH ×2 (09:19→21:01)
--- NOTE | 2019-04-30 23:12 | Hospitalist Progress Note ---
Date of Service April 30, 2019 Assessment & Plan (1) [place] toxicity: Noted to be confused for the last few days and few falls. Presented with lithium level of 4.0 --->1.9-> 1.5 ->1.3 -Home regimen: [place] carbonate ER 450 mg 2 tablets daily with lithium carbonate via 300 mg 1 tablet daily--> Held since admission. appreciate input from psychiatry recommend to restart at lower dose 450 mg PO BID once lithium level normalizes <0.8 per psychiatry -need to Repeat [place] levels 5 days /After that 10-12 hours after dose prior to next dose to check level and kidney function. 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 Urine drug screen on 04/26 came back positive for Ecstacy. -Psych recommends: Routine behavioral orientation skills (U liason to give handout to RN) -If more agitated, one-to-one observation with verbal soothing and redirection preferred overmedication -If severe agitation which is harmful to her or others, IV Haldol 5 mg every 4 hours as needed, - - CT head-no acute abnormality, subacute minimal calcified foci suggesting underlying tuberous sclerosis or prior infection. Patient remains in very labile mood, disorganized idea, thought process Per psychiatry patient is approximate at her baseline, does not feel she is a threat to herself or other Recommend to return back to personal prison with support (3) Bipolar disorder: lithium kept on hold secondary to elevated/toxic level Yesterday following (4) Major depressive disorder: As above (5) VIANNEY (acute kidney injury): Resolved Baseline- 0.8 . Presented with creatinine 1.46, now trending down 1.17 -S/P IVF Given patient's risk of dehydration, acute renal failure leading to lithium toxicity, will avoid diuretics, NSAIDs (6) Hypertension: -On propranolol 20 mg PO BID (7) Agitation: concern for pt's safety /self care noted to have severe agitation /poor insight /delusion with psychosis Continue to follow with psychiatry recommendation Subjective less agitated today \ mentions she feels better , wants to be out of the hospital Physical Exam Constitutional: + obese, + altered mental status (agitated /combatiive ), + disheveled and + combative Eyes: PERRL, conjunctivae normal, anicteric sclerae + anicteric sclerae ENMT: external ear and nose normal, oropharynx normal Neck: trachea midline, no thyromegaly Respiratory: normal respiratory effort Cardiovascular: Rate/Rhythm: regular rate and regular rhythm Gastrointestinal (Abdomen): Inspection/Auscultation: abdomen normal to inspection and normal bowel sounds Percussion/Palpation: abdomen soft; abdomen nontender Psychiatric: Orientation: alert Apperance: + disheveled (obese, notable presense of pigmented patches on chin and jaw) Eye Contact: + poor eye contact Motor Behavior: + psychomotor agitation Speech: + pressured speech and + loud speech Affect: + labile affect Thought Process: + tangential thought process and + flight of ideas Thought Content: + preoccupation, + paranoid, + compulsions and + delusions Insight: + severely impaired insight Judgement: + severely impaired judgement Lymphatic: no cervical or axillary lymphadenopathy Results & Data Vital Signs (Past 12 Hours) Vital Signs Temp Pulse Resp BP Pulse Ox 04/30/19 22:09 36.7 C 79 20 115/67 99 04/30/19 15:01 36.4 C L 71 18 141/91 H 96 (1) [place] toxicity Encounter type: initial encounter Injury intent: undetermined intent Qualified Code(s): T56.894A - Toxic effect of other metals, undetermined, initial encounter (2) Major depressive disorder Active/Remission status: remission status unspecified Major depression recurrence: recurrent Qualified Code(s): F33.9 - Major depressive disorder, recurrent, unspecified (3) Bipolar disorder Active/Remission status: currently active Current bipolar episode type: manic Current episode severity: severe Psychotic features: with psychotic features Qualified Code(s): F31.2 - Bipolar disorder, current episode manic severe with psychotic features (4) Hypertension Hypertension type: unspecified Qualified Code(s): I10 - Essential (primary) hypertension
[2019-05-01] MEDS: HEPARIN SOD 5,000 UNIT/0.5 ML VIAL SQ SCH ×3 (06:02→20:59)
[2019-05-01] MEDS: VENLAFAXINE HCL XR 75 MG CAPXR PO SCH (08:32)
[2019-05-01] MEDS: PANTOprazole 40 MG TAB PO SCH (08:32)
[2019-05-01] MEDS: BuPROPion XL 300 MG TABCR PO SCH (08:32)
[2019-05-01] MEDS: PROPRANOLOL HCL 20 MG TAB PO SCH ×2 (08:32→20:58)
[2019-05-01] MEDS: SULFAMETHOXAZOLE/TRIMETHOPRIM DS 800/160MG TAB PO SCH ×2 (08:32→20:59)
--- NOTE | 2019-05-01 18:26 | Hospitalist Progress Note ---
Date of Service May 01, 2019 Assessment & Plan (1) [place] toxicity: Noted to be confused for the last few days and few falls. Presented with lithium level of 4.0 --->1.9-> 1.5 ->1.3 lithium level improved to 0.8 today lithium resumed at lower dose 450 mg PO BID -need to Repeat [place] levels 5 days /After that 10-12 hours after dose prior to next dose to check level and kidney function. (2) Metabolic encephalopathy: DELIRIUM with agitative episodes improved after resolution of lithium toxicty Likely secondary to lithium toxicity in setting of borderline intellectual dysfunction with mood disorder. Urine drug screen on 04/26 came back positive for Ecstacy. -Psych recommends: Routine behavioral orientation skills (U liason to give handout to RN) - CT head-no acute abnormality, subacute minimal calcified foci suggesting underlying tuberous sclerosis or prior infection. (3) Bipolar disorder: lithium was kept on hold secondary to elevated/toxic level ( lithium 4 on admission ) resumed today at lower dose ( lithium <0.8) (4) Major depressive disorder: As above (5) VIANNEY (acute kidney injury): Resolved Baseline- 0.8 . Presented with creatinine 1.46, now trending down 1.17 -S/P IVF Given patient's risk of dehydration, acute renal failure leading to lithium t oxicity, will avoid diuretics, NSAID lisinopril D/adrianne (6) Hypertension: -On propranolol 20 mg PO BID lisinopril D/adrianne (7) Agitation: resolved more co operative /and oriented to self and surrounding today noted to have severe agitation /poor insight /delusion with psychosis on admission possible due to lithium toxicity Continue to follow with psychiatry recommendation DISPOSITION: return back to personal fpc in next 1-2 days if continues to improve clinically Subjective pt is more oriented today no agitation noted wants to know when she can get out of hospital Physical Exam Constitutional: + obese Eyes: PERRL, conjunctivae normal, anicteric sclerae + anicteric sclerae ENMT: external ear and nose normal, oropharynx normal Neck: trachea midline, no thyromegaly Respiratory: normal respiratory effort Cardiovascular: Rate/Rhythm: regular rate and regular rhythm Gastrointestinal (Abdomen): Inspection/Auscultation: abdomen normal to inspection and normal bowel sounds Psychiatric: Orientation: alert Apperance: + disheveled (obese, notable presense of pigmented patches on chin and jaw) Affect: + labile affect Thought Content: + preoccupation, + paranoid, + compulsions and + delusions Insight: + severely impaired insight Judgement: + severely impaired judgement Lymphatic: no cervical or axillary lymphadenopathy Results & Data Vital Signs (Past 12 Hours) Vital Signs Temp Pulse Resp BP BP Pulse Ox 05/01/19 15:00 36.4 C L 79 16 149/92 H 91 05/01/19 11:32 36.8 C 75 17 113/53 L 94 05/01/19 07:39 36.6 C 64 17 130/74 92 (1) [place] toxicity Encounter type: initial encounter Injury intent: undetermined intent Qualified Code(s): T56.894A - Toxic effect of other metals, undetermined, initial encounter (2) Major depressive disorder Active/Remission status: remission status unspecified Major depression recurrence: recurrent Qualified Code(s): F33.9 - Major depressive disorder, recurrent, unspecified (3) Bipolar disorder Active/Remission status: currently active Current bipolar episode type: manic Current episode severity: severe Psychotic features: with psychotic features Qualified Code(s): F31.2 - Bipolar disorder, current episode manic severe with psychotic features (4) Hypertension Hypertension type: unspecified Qualified Code(s): I10 - Essential (primary) hypertension
[2019-05-02] MEDS: HEPARIN SOD 5,000 UNIT/0.5 ML VIAL SQ SCH ×3 (05:40→20:33)
[2019-05-02] MEDS: ACETAMINOPHEN 325 MG TAB PO PRN (06:23)
[2019-05-02] MEDS: LITHIUM CARBONATE 450 MG TABCR PO SCH ×2 (07:46→20:32)
[2019-05-02] MEDS: PANTOprazole 40 MG TAB PO SCH (07:46)
[2019-05-02] MEDS: VENLAFAXINE HCL XR 75 MG CAPXR PO SCH (07:46)
[2019-05-02] MEDS: SULFAMETHOXAZOLE/TRIMETHOPRIM DS 800/160MG TAB PO SCH ×2 (07:46→20:33)
[2019-05-02] MEDS: PROPRANOLOL HCL 20 MG TAB PO SCH ×2 (07:46→20:32)
[2019-05-02] MEDS: BuPROPion XL 300 MG TABCR PO SCH (07:46)
--- NOTE | 2019-05-02 14:21 | Hospitalist Progress Note ---
Date of Service May 02, 2019 Assessment & Plan (1) [place] toxicity: Noted to be confused for the last few days and few falls before admission. Presented with lithium level of 4.0 Symptomatically at her baseline without any symptoms of lithium toxicity [place] level has been normal since 04/30 [place] resumed at lower dose 450 mg PO BID -need to Repeat [place] levels 5 days /After that 10-12 hours after dose prior to next dose to check level and kidney function. Clinically much better and like to be discharged tomorrow (2) Metabolic encephalopathy: DELIRIUM with agitative episodes improved after resolution of lithium toxicty Psych recommends: Routine behavioral orientation skills (U liason to give handout to RN) CT head-no acute abnormality, subacute minimal calcified foci suggesting underlying tuberous sclerosis or prior infection. (3) Bipolar disorder: [place] was kept on hold secondary to elevated/toxic level ( lithium 4 on admission Resumed today at lower dose (4) Major depressive disorder: As above No acute issue (5) VIANNEY (acute kidney injury): Resolved Given patient's risk of dehydration, acute renal failure leading to lithium toxicity, will avoid diuretics, NSAID lisinopril D/adrianne (6) Hypertension: On propranolol 20 mg PO BID Lisinopril discontinued Blood pressure seems to be elevated Will start a small dose of amlodipine to control blood pressure (7) Agitation: resolved more co operative /and oriented to self and surrounding today DISPOSITION: return back to personal fpc in next 1-2 days if continues to improve clinically Subjective 05/02 The patient was seen and examined the medical floor She is a 38-year-old female obese with a significant past medical history including bipolar disorder, major depressive disorder, hypertension, borderline intellectual impairment, GERD and anxiety has been complaining of increasing confusion for the last few days before admission. She was noted to have lithium toxicity on admission She denies any symptoms today except some pain in the right She has been working to get back to personal care facility in a day or 2 Review of Systems Review of Systems: All systems reviewed and are unremarkable remarkable except as noted below Musculoskeletal: Complains some pain in the right knee joint without any swelling Physical Exam Physical Exam: Sitting on a chair without any acute symptoms Constitutional: well developed, well nourished and + morbidly obese Eyes: PERRL, conjunctivae normal, anicteric sclerae ENMT: external ear and nose normal, oropharynx normal Neck: trachea midline, no thyromegaly Respiratory: normal respiratory effort Auscultation: + diminished lung sounds; no crackles and no wheezes Cardiovascular: Rate/Rhythm: regular rate and regular rhythm Gastrointestinal (Abdomen): Inspection/Auscultation: abdomen normal to inspection and normal bowel sounds Percussion/Palpation: abdomen soft; abdomen nontender Musculoskeletal: Right knee pain-minimal without any swelling and/or redness Psychiatric: Orientation: alert Affect: + depressed affect and + anxious affect Insight: + limited insight Lymphatic: no cervical or axillary lymphadenopathy Results & Data Vital Signs (Past 12 Hours) Vital Signs Temp Pulse Resp BP Pulse Ox 05/02/19 07:33 36.9 C 57 L 16 141/86 H 95 05/02/19 04:19 36.6 C 69 20 140/78 97 Medications Administered Current Inpatient Medications Acetaminophen (Tylenol) 650 mg PO Q6H PRN PRN Reason: Pain or Fever Stop: 05/29/19 19:35 Last Admin: 05/02/19 06:23 Dose: 650 mg Documented by: Bupropion HCl (Wellbutrin-Xl) 300 mg PO QAM [facility] Stop: 05/24/19 08:59 Last Admin: 05/02/19 07:46 Dose: 300 mg Documented by: Haloperidol Lactate (Haldol) 5 mg IM Q8 PRN PRN Reason: Agitation Stop: 05/28/19 12:42 Heparin Sodium (Porcine) (Heparin Sodium (Porcine)) 5,000 units SQ Q8 [facility] Stop: 05/23/19 21:59 Last Admin: 05/02/19 13:41 Dose: 5,000 units Documented by: [place] Carbonate (Eskalith) 450 mg PO BID [facility] Stop: 06/01/19 08:59 Last Admin: 05/02/19 07:46 Dose: 450 mg Documented by: Pantoprazole Sodium (Protonix) 40 mg PO QAM [facility] Stop: 05/24/19 08:59 Last Admin: 05/02/19 07:46 Dose: 40 mg Documented by: Propranolol HCl (Inderal) 20 mg PO BID [facility] Stop: 05/23/19 20:59 Last Admin: 05/02/19 07:46 Dose: 20 mg Documented by: Trimethoprim/Sulfamethoxazole (Septra Ds 800/160mg Tab) 1 tab PO Q12 [facility]; Protocol Stop: 05/05/19 08:24 Last Admin: 05/02/19 07:46 Dose: 1 tab Documented by: Venlafaxine HCl (Effexor Extended Release) 225 [facility] [place] Stop: 05/24/19 08:59 Last Admin: 05/02/19 07:46 Dose: 225 mg Documented by: (1) [place] toxicity Encounter type: initial encounter Injury intent: undetermined intent Qualified Code(s): T56.894A - Toxic effect of other metals, undetermined, initial encounter (2) Major depressive disorder Active/Remission status: remission status unspecified Major depression recurrence: recurrent Qualified Code(s): F33.9 - Major depressive disorder, recurrent, unspecified (3) Bipolar disorder Active/Remission status: currently active Current bipolar episode type: manic Current episode severity: severe Psychotic features: with psychotic features Qualified Code(s): F31.2 - Bipolar disorder, current episode manic severe with psychotic features (4) Hypertension Hypertension type: unspecified Qualified Code(s): I10 - Essential (primary) hypertension
[2019-05-03] MEDS: HEPARIN SOD 5,000 UNIT/0.5 ML VIAL SQ SCH ×2 (05:22→14:49)
[2019-05-03] MEDS: SULFAMETHOXAZOLE/TRIMETHOPRIM DS 800/160MG TAB PO SCH (08:02)
[2019-05-03] MEDS: BuPROPion XL 300 MG TABCR PO SCH (08:02)
[2019-05-03] MEDS: PROPRANOLOL HCL 20 MG TAB PO SCH (08:02)
[2019-05-03] MEDS: PANTOprazole 40 MG TAB PO SCH (08:02)
[2019-05-03] MEDS: LITHIUM CARBONATE 450 MG TABCR PO SCH (08:02)
[2019-05-03] MEDS: VENLAFAXINE HCL XR 75 MG CAPXR PO SCH (08:03)
--- NOTE | 2019-05-03 14:41 | Hospitalist Progress Note ---
Date of Service May 03, 2019 Assessment & Plan (1) [place] toxicity: Noted to be confused for the last few days and few falls before admission. Presented with lithium level of 4.0 Symptomatically at her baseline without any symptoms of lithium toxicity [place] level has been normal since 04/30 Dose of lithium has been decreased Recheck lithium level in 5 days prior to the dose given to make sure he stays in a nontoxic level Remains stable clinically to be discharged (2) Metabolic encephalopathy: DELIRIUM with agitative episodes improved after resolution of lithium toxicty Psych recommends: Routine behavioral orientation skills (U liason to give handout to RN) CT head-no acute abnormality, subacute minimal calcified foci suggesting underlying tuberous sclerosis or prior infection. No more acute delirium (3) Bipolar disorder: [place] was kept on hold secondary to elevated/toxic level ( lithium 4 on admission Resumed today at lower dose (4) Major depressive disorder: As above No acute issue (5) VIANNEY (acute kidney injury): Resolved Given patient's risk of dehydration, acute renal failure leading to lithium toxicity, will avoid diuretics, NSAID lisinopril D/adrianne Creatinine remains stable without lisinopril (6) Hypertension: On propranolol 20 mg PO BID Lisinopril discontinued Blood pressure seems to be elevated Will start a small dose of amlodipine to control blood pressure She might need additional blood pressure medications down the line (7) Agitation: resolved more co operative /and oriented to self and surrounding today DISPOSITION: return back to personal jail in next 1-2 days if continues to improve clinically Subjective 05/02 The patient was seen and examined the medical floor She is a 38-year-old female obese with a significant past medical history including bipolar disorder, major depressive disorder, hypertension, borderline intellectual impairment, GERD and anxiety has been complaining of increasing c onfusion for the last few days before admission. She was noted to have lithium toxicity on admission She denies any symptoms today except some pain in the right She has been working to get back to personal care facility in a day or 2 05/03 The patient was seen and examined in medical floor She has been stable for the last few days Her lithium level has been normalized and the dose of lithium has been decreased sHE denies any symptoms as of today Review of Systems Review of Systems: All systems reviewed and are unremarkable remarkable except as noted below Musculoskeletal: Complains some pain in the right knee joint without any swelling Physical Exam Physical Exam: Sitting on a chair without any complaints of distress Constitutional: well developed, well nourished and + morbidly obese Eyes: PERRL, conjunctivae normal, anicteric sclerae ENMT: external ear and nose normal, oropharynx normal Neck: trachea midline, no thyromegaly Respiratory: normal respiratory effort Auscultation: + diminished lung sounds; no crackles and no wheezes Cardiovascular: Rate/Rhythm: regular rate and regular rhythm Gastrointestinal (Abdomen): Inspection/Auscultation: abdomen normal to inspection and normal bowel sounds Percussion/Palpation: abdomen soft; abdomen nontender Musculoskeletal: No more pain in the right knee joint Psychiatric: Orientation: alert Affect: + depressed affect and + anxious affect Insight: + limited insight Lymphatic: no cervical or axillary lymphadenopathy Results & Data Vital Signs (Past 12 Hours) Vital Signs Temp Pulse Resp BP Pulse Ox 05/03/19 07:00 36.3 C L 67 20 143/85 H 96 Medications Administered Current Inpatient Medications Acetaminophen (Tylenol) 650 mg PO Q6H PRN PRN Reason: Pain or Fever Stop: 05/29/19 19:35 Last Admin: 05/02/19 06:23 Dose: 650 mg Documented by: Bupropion HCl (Wellbutrin-Xl) 300 mg PO QAM [facility] Stop: 05/24/19 08:59 Last Admin: 05/03/19 08:02 Dose: 300 mg Documented by: Haloperidol Lactate (Haldol) 5 mg IM Q8 PRN PRN Reason: Agitation Stop: 05/28/19 12:42 Heparin Sodium (Porcine) (Heparin Sodium (Porcine)) 5,000 units SQ Q8 [facility] Stop: 05/23/19 21:59 Last Admin: 05/03/19 05:22 Dose: 5,000 units Documented by: Twain Carbonate (Eskalith) 450 mg PO BID [facility] Stop: 06/01/19 08:59 Last Admin: 05/03/19 08:02 Dose: 450 mg Documented by: Pantoprazole Sodium (Protonix) 40 mg PO QAM [facility] Stop: 05/24/19 08:59 Last Admin: 05/03/19 08:02 Dose: 40 mg Documented by: Propranolol HCl (Inderal) 20 mg PO BID [facility] Stop: 05/23/19 20:59 Last Admin: 05/03/19 08:02 Dose: 20 mg Documented by: Trimethoprim/Sulfamethoxazole (Septra Ds 800/160mg Tab) 1 tab PO Q12 FERNANDA; Protocol Stop: 05/05/19 08:24 Last Admin: 05/03/19 08:02 Dose: 1 tab Documented by: Venlafaxine HCl (Effexor Extended Release) 225 mg PO QAM [facility] Stop: 05/24/19 08:59 Last Admin: 05/03/19 08:03 Dose: 225 mg Documented by: (1) [place]ain toxicity Encounter type: initial encounter Injury intent: undetermined intent Qualified Code(s): T56.894A - Toxic effect of other metals, undetermined, initial encounter (2) Bipolar disorder Active/Remission status: currently active Current bipolar episode type: manic Current episode severity: severe Psychotic features: with psychotic features Qualified Code(s): F31.2 - Bipolar disorder, current episode manic severe with psychotic features (3) Major depressive disorder Major depression recurrence: recurrent Active/Remission status: remission status unspecified Qualified Code(s): F33.9 - Major depressive disorder, recurrent, unspecified (4) Hypertension Hypertension type: unspecified Qualified Code(s): I10 - Essential (primary) hypertension
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
== END 2019-05-03 16:45 | DRG 917 ==
LOC: ED 11:25 → 2W 15:59 → SUATTDRO 15:59 → 2W 16:52

== ENCOUNTER 2019-05-12 10:20 | Inpatient (IN) ==
[2019-05-12] MEDS ORDERED: SODIUM CHLORIDE 0.9% 1000ML 1,000 ML IV SCH (11:00)
[2019-05-12 11:29] LABS: Basophils # (auto) 0.03 K/uL (0-0.2); Basophils % (auto) 0.5 %; Eosinophils # (auto) 0.19 K/uL (0-0.5); Hematocrit (blood only) 33.4 % (37-47); Immature Granulocytes # (auto) 0.01 K/uL (0.00-0.02); Immature Granulocytes % (auto) 0.2 %; Lymphocytes # (auto) 1.61 K/uL (1.2-3.4); Lymphocytes % (auto) 25.6 %; Mean Corpuscular Hgb Conc 32.9 g/dL (32-36); Mean Corpuscular Volume 91.8 fL (80-100); Mean Platelet Volume 9.9 fL (7.4-10.4); Monocytes # (auto) 0.43 K/uL (0.11-0.59); Monocytes % (auto) 6.8 %; Neutrophils # (auto) 4.02 K/uL (1.4-6.5); Neutrophils % (auto) 63.9 %; Platelet Count 252 K/uL (130-400); RDW Coefficient of Variation 13.4 % (11.5-14.5); RDW Standard Deviation 45.1 fL (36.4-46.3); Red Blood Count 3.64 M/uL (4.2-5.4); White Blood Count 6.29 K/uL (4.8-10.8)
--- NOTE | 2019-05-12 11:33 | XRay Report ---
XR chest 1V portable HISTORY: Acute renal failure. Confusion. COMPARISON: Chest 04/23/2019. FINDINGS: There are low lung volumes. The heart remains mildly enlarged. No pneumothorax. No pleural effusions. No evidence for pulmonary edema. The lungs are clear. IMPRESSION: No significant change compared to the prior study. No acute process. Stable mild cardiomegaly. Electronically signed by: Ashish Pace M.D. 05/12/2019 11:32 AM
[2019-05-12 11:34] LABS: iSTAT Creatinine 3.1 mg/dl (0.6-1.3); iSTAT Hemoglobin 11.2 g/dl (12.0-16.0); iSTAT Ionized Calcium 1.18 mmol/l (1.12-1.32); iSTAT Potassium 5.6 mEq/L (3.3-5.0)
[2019-05-12 12:42] LABS: Albumin Level 3.9 gm/dl (3.4-5.0); Calcium 9.9 mg/dl (8.5-10.1); Est GFR (African American) 23.4; Est GFR (Non-African American) 20.2
[2019-05-12] MEDS ORDERED: SODIUM CHLORIDE 0.9% 1000ML 1,000 ML IV ONE (12:42)
[2019-05-12 12:45] LABS: Albumin Globulin Ratio 1.3 (0.9-2); Bilirubin,Total 0.3 mg/dl (0.2-1); Globulin 3.1 gm/dl (2.5-4.0)
[2019-05-12 13:25] LABS: Amphetamines+Metham, Urine Neg (Neg); Barbiturates, Urine Neg (Neg); Benzodiazepine, Urine Neg (Neg); Cocaine, Urine Neg (Neg); MDMA (Ecstacy), Urine Pos (Neg); Methadone, Urine Neg (Neg); Opiate, Urine Neg (Neg); Phencyclidine, Urine Neg (Neg)
--- NOTE | 2019-05-12 14:51 | History & Physical Report ---
Date of Service May 12, 2019 Assessment & Plan (1) VIANNEY (acute kidney injury): This is a 38-year-old female with a PMH of bipolar disorder, intellectual disability, hypertension, anxiety and other medical problems listed below who presents from [facility] with elevated lithium level and acute kidney injury. -Cr elevated at 2.83 (baseline ~0.8 but was elevated to mid-1s during recent March-May admission a few weeks ago), BUN 45 -Likely due to poor PO intake as well as elevated lithium level -IV hydration, will re-check BMP at 1700 -Hold lithium, lisinopril -Urine Na and Cr pending -Consider nephro consult if no improvement (2) Falconer toxicity: Falconer level elevated at 2.4 at [facility]. Repeating level now -Was elevated during recent admission from 04/23-05/05 at 4 initially, medication dose was decreased to Falconer ER 450mg BID -Holding lithium (3) Hypertension: Hypotensive at 97/54, receiving IV fluid resuscitation -Holding Atenolol, lisinopril -Continue monitoring (4) Bipolar disorder: Holding Falconer until level normalizes (5) Depression: Continue Effexor, Wellbutrin (6) GERD (gastroesophageal reflux disease): Continue PPI DVT Ppx: SQ heparin Code status: FULL PCP: Domenico Dispo: Admitted to [facility]. Discharge planning ordered. Patient seen in collaboration with Dr. Londono. Please see addendum. History of Present Illness Chief Complaint: Acute renal failure, lithium level elevated Primary Care Provider: Nurys Acuña, DO This is a 38-year-old female with a PMH of bipolar disorder, intellectual disability, hypertension, anxiety and other medical problems listed below who presents from [facility] with abnormal lab work. Patient was recently admitted from April 23-May 05 for metabolic encephalopathy in the setting of lithium toxicity and VIANNEY. It was thought that recently increased lithium dose in combination with SSRI had caused metabolic encephalopathy. Urine culture during admission grew alexis-sensitive Proteus and was treated with Bactrim. Prior to discharge, Falconer dose was reduced from lithium ER 450 twice daily plus additional 300 mg daily to just Falconer ER 450 twice daily. Zoloft was also discontinued during admission and patient was discharged to [facility]. Per paperwork sent from facility, patient was noted to have an elevated lithium level of 2.4 and creatinine of 3.0 and sent to ED for further evaluation. Patient states that she feels fine. Has been drinking less fluids than usual and has been urinating once daily (instead of 3x daily). Urine is reportedly light yellow in color, no hematuria. Appetite and bowel movements are normal. Denies any confusion, fever, chills, lightheadedness, headache, chest pain, palpitations, shortness of breath, nausea, vomiting, abdominal pain, flank pain or diarrhea. Allergies Allergy/AdvReac Type Severity Reaction Status Date / Time pollen extracts Allergy Intermediate ITCHY Verified 05/12/19 11:42 WATERY EYES, RUNNY NOSE, PUFFY EYES Home Medications Home Medications Medication Instructions Recorded Confirmed Type bupropion HCl 300 mg PO QAM 11/07/18 05/12/19 History medroxyprogesterone [Depo-Provera] 150 mg IM Q3M 11/07/18 05/12/19 History venlafaxine 225 mg PO QAM 11/07/18 05/12/19 History venlafaxine 225 mg PO QAM 11/07/18 05/12/19 History melatonin 6 mg PO HS 11/23/18 05/12/19 History propranolol 20 mg PO BID 11/23/18 05/12/19 History lithium carbonate 450 mg PO BID 30 Days #60 tab 05/03/19 05/12/19 Rx acetaminophen 650 mg PO QID PRN 05/12/19 05/12/19 History calcium carbonate 500 mg PO TID 05/12/19 05/12/19 History lisinopril 5 mg PO DAILY 05/12/19 05/12/19 History pantoprazole 40 mg PO DAILY 05/12/19 05/12/19 History polyethylene glycol 3350 17 g PO DAILY PRN 05/12/19 05/12/19 History sennosides-docusate sodium [Senna 1 tab PO DAILY@1200 05/12/19 05/12/19 History with Docusate Sodium] Past Med/Surg History Medical History Anxiety (Chronic) GERD (gastroesophageal reflux disease) (Chronic) Idiopathic borderline intellectual disability (Chronic) Bipolar disorder (Chronic) Hypertension (Chronic) Major depressive disorder (Chronic) Tuberous sclerosis (Chronic) Anemia (Inactive) Surgical History No pertinent past surgical history (Chronic) Family History Other Diabetes Heart disease Social History Preferred Language: Stateless Communication Ability: Impaired Beliefs That Will Affect Care: None marital status: Single Current Living Situation: Rehab Current Living Situation Comment: [facility] current occupational status: disabled Other Information That Helps Us Care for You: No Feels Safe at Home: Yes Safety Concerns: Feels Safe At This Time Smoking Status: Former smoker Hx Alcohol Use: No Hx Substance Use: No Review of Systems Review of Systems: At least ten systems reviewed and negative except as noted in the HPI. Physical Exam Physical Exam: General Appearance: WD/WN, no apparent distress, morbidly obese Head: normocephalic, atraumatic Eyes: normal inspection, PERRL, EOMI ENT: hearing grossly normal, pharynx normal (dry mucous membranes) Neck: supple, no JVD, no adenopathy Respiratory/Chest: lungs clear to auscultation, decreased breath sounds. No wheezes, rales or rhonci. No respiratory distress or accessory muscle use Cardiovascular: regular rate, rhythm, no murmur, normal peripheral pulses Abdomen/GI: Ecchymosis on abdomen. Normal bowel sounds, soft, non-tender to palpation Extremities/Musculoskelatal: normal inspection, no calf tenderness, normal capillary refill, no pedal edema Neurologic/Psych: alert, normal mood/affect, oriented x 4, poor insight/judgement Skin: normal color, warm/dry Results & Data Vital Signs (Past 12 Hours) Vital Signs Temp Pulse Pulse Resp BP BP Pulse Ox 05/12/19 13:55 58 L 22 97/54 L 99 05/12/19 12:55 53 L 20 97/50 L 98 05/12/19 12:42 58 L 22 100/40 L 100 05/12/19 11:47 52 L 22 98/56 L 97 05/12/19 11:26 99 05/12/19 10:23 36.7 C 54 L 22 98/49 L 98 Laboratory Results Labs 05/12/19 05/12/19 05/12/19 11:16 11:20 11:20 WBC 6.29 RBC 3.64 L Hgb 11.0 L POC Hgb Hct 33.4 L POC Hct MCV 91.8 MCH 30.2 MCHC 32.9 RDW Std Deviation 45.1 RDW Coeff of Consuelo 13.4 Plt Count 252 MPV 9.9 Immature Gran % (Auto) 0.2 Neut % (Auto) 63.9 Lymph % (Auto) 25.6 [place] % (Auto) 6.8 Eos % (Auto) 3.0 Baso % (Auto) 0.5 Immature Gran # (Auto) 0.01 Neut # (Auto) 4.02 Lymph # (Auto) 1.61 [place] # (Auto) 0.43 Eos # (Auto) 0.19 Baso # (Auto) 0.03 POC Sodium Sodium Cancelled POC Potassium Potassium Cancelled POC Chloride Chloride Cancelled Carbon Dioxide Cancelled POC Total CO2 Anion Gap Cancelled POC Anion Gap POC BUN BUN Cancelled Creatinine Cancelled POC Creatinine Est Cr Clr Drug Dosing Cancelled Est GFR ( Amer) Cancelled Est GFR (Non-Af Amer) Cancelled BUN/Creatinine Ratio Cancelled Glucose Cancelled POC Glucose (other) Calcium Cancelled POC Ioniz Calcium Jorge Total Bilirubin Cancelled AST Cancelled ALT Cancelled Alkaline Phosphatase Cancelled Total Creatine Kinase Cancelled Total Protein Cancelled Albumin Cancelled Globulin Cancelled Albumin/Globulin Ratio Cancelled Salicylates Urine Opiates Screen Ur Methadone, Qual Acetaminophen Urine Barbiturates Ur Phencyclidine (PCP) U Amphetamin/Meth Scrn MDMA (Ecstasy) Screen U Benzodiazepines Scrn Falconer Ur Cocaine Metabolite U Marijuana (THC) Screen Ethyl Alcohol mg/dL < 3.0 05/12/19 05/12/19 05/12/19 11:20 11:20 12:13 WBC RBC Hgb POC Hgb 11.2 L Hct POC Hct 33 L MCV MCH MCHC RDW Std Deviation RDW Coeff of Consuelo Plt Count MPV Immature Gran % (Auto) Neut % (Auto) Lymph % (Auto) [place] % (Auto) Eos % (Auto) Baso % (Auto) Immature Gran # (Auto) Neut # (Auto) Lymph # (Auto) [place] # (Auto) Eos # (Auto) Baso # (Auto) POC Sodium 129 L Sodium 133 L POC Potassium 5.6 H Potassium 5.0 POC Chloride 101 Chloride 103 Carbon Dioxide 24 POC Total CO2 21 L Anion Gap 7.0 POC Anion Gap 14.0 L POC BUN 61 H BUN 45 H Creatinine 2.83 H POC Creatinine 3.1 H Est Cr Clr Drug Dosing 38.0 Est GFR ( Amer) 23.4 Est GFR (Non-Af Amer) 20.2 BUN/Creatinine Ratio 16.0 Glucose 79 POC Glucose (other) 86 Calcium 9.9 POC Ioniz Calcium Jorge 1.18 Total Bilirubin 0.3 AST 13 L ALT 36 Alkaline Phosphatase 102 Total Creatine Kinase 27 Total Protein 7.0 Albumin 3.9 Globulin 3.1 Albumin/Globulin Ratio 1.3 Salicylates Cancelled Urine Opiates Screen Ur Methadone, Qual Acetaminophen Cancelled Urine Barbiturates Ur Phencyclidine (PCP) U Amphetamin/Meth Scrn MDMA (Ecstasy) Screen U Benzodiazepines Scrn Falconer Cancelled Ur Cocaine Metabolite U Marijuana (THC) Screen Ethyl Alcohol mg/dL 05/12/19 12:55 WBC RBC Hgb POC Hgb Hct POC Hct MCV MCH MCHC RDW Std Deviation RDW Coeff of Consuelo Plt Count MPV Immature Gran % (Auto) Neut % (Auto) Lymph % (Auto) [place] % (Auto) Eos % (Auto) Baso % (Auto) Immature Gran # (Auto) Neut # (Auto) Lymph # (Auto) [place] # (Auto) Eos # (Auto) Baso # (Auto) POC Sodium Sodium POC Potassium Potassium POC Chloride Chloride Carbon Dioxide POC Total CO2 Anion Gap POC Anion Gap POC BUN BUN Creatinine POC Creatinine Est Cr Clr Drug Dosing Est GFR ( Amer) Est GFR (Non-Af Amer) BUN/Creatinine Ratio Glucose POC Glucose (other) Calcium POC Ioniz Calcium Jorge Total Bilirubin AST ALT Alkaline Phosphatase Total Creatine Kinase Total Protein Albumin Globulin Albumin/Globulin Ratio Salicylates Urine Opiates Screen Neg Ur Methadone, Qual Neg Acetaminophen Urine Barbiturates Neg Ur Phencyclidine (PCP) Neg U Amphetamin/Meth Scrn Neg MDMA (Ecstasy) Screen Pos H U Benzodiazepines Scrn Neg Falconer Ur Cocaine Metabolite Neg U Marijuana (THC) Screen Neg Ethyl Alcohol mg/dL Diagnostic Findings CXR: IMPRESSION: No significant change compared to the prior study. No acute process. Stable mild cardiomegaly. ECG Rhythm: sinus bradycardia Supervising Physician Co-Signing Physician Notes Patient is a 38-year-old female with history of bipolar disorder, intellectual disability, hypertension and other problems presents from rehab facility with abnormal blood work. She was recently admitted at [facility] for lithium toxicity and VIANNEY. Falconer dose was decreased as per psychiatry recommendations during prior admission. Patient was noted to have an elevated lithium level today at 2.2 and VIANNEY with creatinine elevated at 2.83. Patient currently offers no complaints. She admits to drinking less oral fluids and has decreased urinary output. UA is currently pending. On exam patient is morbidly obese, no apparent distress, normocephalic atraumatic, lungs are clear to auscultation, no added sounds, S1- S2, no murmur, abdomen soft nontender, no pedal edema, grossly no focal neurological deficits. Patient is admitted for management of VIANNEY, lithium toxicity. VIANNEY likely prerenal due to decreased oral fluid intake and lithium toxicity. Check urinary electrolytes. Will hold lithium. Agree with IV hydration. Monitor renal function, electrolytes. BladderScan PRN. Consider nephrology input, renal USD if clinically necessary. Repeat lithium levels in a.m. and resume lithium as able. Check UA to rule out UTI. Hyperkalemia improved with IV fluids. I personally reviewed the record. Patient is interviewed and examined at bedside. Patient's care is coordinated with Katelyn Le PA-C. Please refer to the documentation above for details of patient's presentation and for discussion of other issues. (1) Falconer toxicity Encounter type: initial encounter Injury intent: undetermined intent Qualified Code(s): T56.894A - Toxic effect of other metals, undetermined, initial encounter (2) Bipolar disorder Active/Remission status: currently active Current bipolar episode type: manic Current episode severity: severe Psychotic features: with psychotic features Qualified Code(s): F31.2 - Bipolar disorder, current episode manic severe with psychotic features (3) Hypertension Hypertension type: unspecified Qualified Code(s): I10 - Essential (primary) hypertension
--- NOTE | 2019-05-12 15:18 | Emergency Department Note ---
Entered by Dawn Hopper acting as a scribe for History of Present Illness General Chief complaint: Abnormal Labs/Diagnostic Testing Time Seen by Provider: 05/12/19 10:43 Source: patient and old records reviewed History of Present Illness Onset (ago): day(s) 8 Location: head Pain Consistency: + other (persistent) Quality: + other (abnormal lab results) Associated symptoms: + denies other symptoms The patient is a 38 year old female that is presenting to the Emergency Room with complaints of persistent abnormal lab results that were first noticed 8 days ago. The patient is followed by [facility]. According to their documentation, the patient's lithium levels have been steadily rising. The patient's lab results indicate that the patient's creatinine, BUN, and GFR lev els have increased over the past 3 days despite fluid resuscitation. Her last lab results show BUN levels at 47, Creatinine at 3, GFR at 18.8, and sodium at 131. The patient reports feeling generally well and asymptomatic today. Home Medications Home Medications Medication Instructions Recorded Confirmed Type bupropion HCl 300 mg PO QAM 11/07/18 05/12/19 History medroxyprogesterone [Depo-Provera] 150 mg IM Q3M 11/07/18 05/12/19 History venlafaxine 225 mg PO QAM 11/07/18 05/12/19 History venlafaxine 225 mg PO QAM 11/07/18 05/12/19 History melatonin 6 mg PO HS 11/23/18 05/12/19 History propranolol 20 mg PO BID 11/23/18 05/12/19 History lithium carbonate 450 mg PO BID 30 Days #60 tab 05/03/19 05/12/19 Rx acetaminophen 650 mg PO QID PRN 05/12/19 05/12/19 History calcium carbonate 500 mg PO TID 05/12/19 05/12/19 History lisinopril 5 mg PO DAILY 05/12/19 05/12/19 History pantoprazole 40 mg PO DAILY 05/12/19 05/12/19 History polyethylene glycol 3350 17 g PO DAILY PRN 05/12/19 05/12/19 History sennosides-docusate sodium [Senna 1 tab PO DAILY@1200 05/12/19 05/12/19 History with Docusate Sodium] Allergies Allergy/AdvReac Type Severity Reaction Status Date / Time pollen extracts Allergy Intermediate ITCHY Verified 05/12/19 11:42 WATERY EYES, RUNNY NOSE, PUFFY EYES Past Med/Surg History Medical History Anxiety (Chronic) GERD (gastroesophageal reflux disease) (Chronic) Idiopathic borderline intellectual disability (Chronic) Bipolar disorder (Chronic) Hypertension (Chronic) Major depressive disorder (Chronic) Tuberous sclerosis (Chronic) Anemia (Inactive) Surgical History No pertinent past surgical history (Chronic) Family History Other Diabetes Heart disease Social History Preferred Language: Ivorian Communication Ability: Effective Beliefs That Will Affect Care: None marital status: Single Current Living Situation: Rehab Current Living Situation Comment: [facility] current occupational status: disabled Other Information That Helps Us Care for You: No Feels Safe at Home: Yes Safety Concerns: Feels Safe At This Time Smoking Status: Former smoker Hx Alcohol Use: No Hx Substance Use: No Review of Systems See HPI for pertinent positives & negatives. and A total of 6 systems reviewed and were otherwise negative Physical Exam Vital Signs Vital Signs - 24 hr 05/12/19 10:23 05/12/19 11:26 05/12/19 11:47 Temperature 36.7 C Temperature Source Oral Sepsis Recent Fever Within 48 Hours No Sepsis New/Unexplained Change in Mental Status No Sepsis Action Taken by Nursing No Action Required Pulse Rate 54 L Pulse Rate [Apical] 52 L Respiratory Rate 22 22 Respiratory Effort / Characteristics Short of Breath Blood Pressure 98/49 L Blood Pressure [Right Arm] 98/56 L Blood Pressure Mean 65 Blood Pressure Mean [Right Arm] 70 Pulse Oximetry 98 99 97 Oxygen Delivery Method Room Air Room Air Room Air 05/12/19 12:42 05/12/19 12:55 05/12/19 13:55 Temperature Temperature Source Sepsis Recent Fever Within 48 Hours Sepsis New/Unexplained Change in Mental Status Sepsis Action Taken by Nursing Pulse Rate Pulse Rate [Apical] 58 L 53 L 58 L Respiratory Rate 22 20 22 Respiratory Effort / Characteristics Blood Pressure Blood Pressure [Right Arm] 100/40 L 97/50 L 97/54 L Blood Pressure Mean Blood Pressure Mean [Right Arm] 60 65 68 Pulse Oximetry 100 98 99 Oxygen Delivery Method Room Air Room Air Room Air 05/12/19 14:39 Temperature Temperature Source Sepsis Recent Fever Within 48 Hours Sepsis New/Unexplained Change in Mental Status Sepsis Action Taken by Nursing Pulse Rate Pulse Rate [Apical] Respiratory Rate Respiratory Effort / Characteristics Blood Pressure Blood Pressure [Right Arm] Blood Pressure Mean Blood Pressure Mean [Right Arm] Pulse Oximetry Oxygen Delivery Method Room Air GENERAL: Awake, alert, well-appearing, in no acute distress HENT: Normocephalic, atraumatic. Oropharynx unremarkable. EYES: Normal conjunctiva. Sclera non-icteric. NECK: Supple. No nuchal rigidity. FROM. No JVD. RESPIRATORY: Clear to auscultation. CARDIAC: Regular rate, normal rhythm. Extremities warm and well perfused. Pulses equal. ABDOMEN: Soft, non-distended. No tenderness to palpation. No rebound or guarding. No masses. RECTAL: Deferred. MUSCULOSKELETAL: Chest examination reveals no tenderness. The back is symmetrical on inspection without obvious abnormality. There is no CVA tenderness to palpation. No joint edema. LOWER EXTREMITIES: Calves are equal size bilaterally and non-tender. No edema. No discoloration. NEURO: Normal sensorium. No sensory or motor deficits noted. SKIN: No rash or jaundice noted. Course 1047:The patient was evaluated in room B05. A complete history and physical examination was performed. 1331: I discussed the patient's case with ROBERT Hale, who will evaluate the patient for further management and care. 1340: Upon reevaluation, the patient is resting comfortably. I discussed laboratory and radiographic results with the patient. She verbalized agreement of the treatment plan. The patient will be evaluated for further management and care. Administered Medications Acetaminophen (Tylenol) 650 mg PO QID PRN PRN Reason: Pain Stop: 06/11/19 16:23 Last Admin: 05/14/19 22:41 Dose: 650 mg Documented by: [id number] Admin: 05/13/19 18:00 Dose: 650 mg Documented by: [id number] Bupropion HCl (Wellbutrin-Xl) 300 mg PO QAM [facility] Stop: 06/12/19 08:59 Last Admin: 05/15/19 08:32 Dose: 300 mg Documented by: [id number] Admin: 05/14/19 08:45 Dose: 300 mg Documented by: [id number] Admin: 05/13/19 08:50 Dose: 300 mg Documented by: [id number] Heparin Sodium (Porcine) (Heparin Sodium (Porcine)) 5,000 units SQ Q8 [facility] Stop: 06/11/19 21:59 Last Admin: 05/15/19 13:37 Dose: 5,000 units Documented by: [id number] Cosigned by: [id number] Admin: 05/15/19 05:30 Dose: 5,000 units Documented by: [id number] Cosigned by: [id number] Admin: 05/14/19 21:58 Dose: 5,000 units Documented by: [id number] Cosigned by: [id number] Admin: 05/14/19 13:49 Dose: 5,000 units Documented by: [id number] Cosigned by: [id number] Admin: 05/14/19 05:38 Dose: 5,000 units Documented by: [id number] Cosigned by: [id number] Admin: 05/13/19 22:12 Dose: 5,000 units Documented by: [id number] Cosigned by: [id number] Admin: 05/13/19 13:59 Dose: 5,000 units Documented by: [id number] Cosigned by: [id number] Admin: 05/13/19 06:04 Dose: 5,000 units Documented by: [id number] Cosigned by: [id number] Admin: 05/12/19 21:06 Dose: 5,000 units Documented by: [id number] Cosigned by: [id number] Sodium Chloride (Nss 1000ml) 1,000 mls @ 75 mls/hr IV .[id number] [facility] Stop: 06/11/19 16:23 Last Admin: 05/15/19 14:42 Dose: 75 mls/hr Documented by: [id number] Infusion: 05/15/19 13:03 Dose: 75 mls/hr Documented by: [id number] Admin: 05/14/19 23:43 Dose: 75 mls/hr Documented by: [id number] Infusion: 05/14/19 21:53 Dose: 125 mls/hr Documented by: [id number] Admin: 05/14/19 13:53 Dose: 125 mls/hr Documented by: [id number] Infusion: 05/14/19 13:38 Dose: 125 mls/hr Documented by: [id number] Admin: 05/14/19 05:38 Dose: 125 mls/hr Documented by: [id number] Infusion: 05/14/19 02:02 Dose: 75 mls/hr Documented by: [id number] Admin: 05/13/19 18:02 Dose: 125 mls/hr Documented by: [id number] Infusion: 05/13/19 18:02 Dose: 125 mls/hr Documented by: [id number] Admin: 05/13/19 10:35 Dose: 125 mls/hr Documented by: [id number] Infusion: 05/13/19 10:33 Dose: 125 mls/hr Documented by: [id number] Infusion: 05/13/19 08:15 Dose: 125 mls/hr Documented by: [id number] Admin: 05/13/19 02:33 Dose: 125 mls/hr Documented by: [id number] Infusion: 05/13/19 02:32 Dose: 125 mls/hr Documented by: [id number] Admin: 05/12/19 18:32 Dose: 125 mls/hr Documented by: [id number] Pantoprazole Sodium (Protonix) 40 mg PO DAILY [facility] Stop: 06/12/19 08:59 Last Admin: 05/15/19 08:31 Dose: 40 mg Documented by: [id number] Admin: 05/14/19 08:45 Dose: 40 mg Documented by: [id number] Admin: 05/13/19 08:50 Dose: 40 mg Documented by: [id number] Venlafaxine HCl (Effexor Extended Release) 75 mg PO QAM [facility] Stop: 06/12/19 08:59 Last Admin: 05/15/19 08:32 Dose: 75 mg Documented by: [id number] Admin: 05/14/19 08:45 Dose: 75 mg Documented by: [id number] Admin: 05/13/19 08:51 Dose: 75 mg Documented by: [id number] Venlafaxine HCl (Effexor Extended Release) 150 mg PO QAM [facility] Stop: 06/12/19 08:59 Last Admin: 05/15/19 08:31 Dose: 150 mg Documented by: [id number] Admin: 05/14/19 08:45 Dose: 150 mg Documented by: [id number] Admin: 05/13/19 08:51 Dose: 150 mg Documented by: [id number] Discontinued Medications Sodium Chloride (Nss 1000ml) 1,000 mls @ 999 mls/hr IV .Q1H1M [facility] Stop: 05/12/19 12:00 Last Infusion: 05/12/19 12:28 Dose: 0 mls/hr Documented by: [id number] Admin: 05/12/19 11:27 Dose: 999 mls/hr Documented by: [id number] Sodium Chloride (Nss 1000ml) 1,000 mls @ 999 mls/hr IV .Q1H1M ONE Stop: 05/12/19 13:42 Last Infusion: 05/12/19 14:01 Dose: 0 mls/hr Documented by: [id number] Admin: 05/12/19 13:00 Dose: 999 mls/hr Documented by: [id number] Miscellaneous (Order Awaiting Action) 1 ea N/A QS [facility] Stop: 06/12/19 00:00 Last Admin: 05/14/19 17:13 Dose: Not Given Documented by: [id number] Admin: 05/14/19 07:57 Dose: Not Given Documented by: [id number] Admin: 05/13/19 22:53 Dose: Not Given Documented by: [id number] Admin: 05/13/19 15:18 Dose: Not Given Documented by: [id number] Admin: 05/13/19 08:50 Dose: Not Given Documented by: [id number] Admin: 05/13/19 01:04 Dose: Not Given Documented by: [id number] Medical Decision Making Differential Diagnosis Differential diagnosis: Etiologies such as metabolic, infection, hypo/hyperglycemia, electrolyte abnor malities, cardiac sources, intracerebral event, toxicologic, neurologic, as well as others were entertained. Medical Records Attestation: I reviewed the patient's medical records. Home Medications Current Medication List: was personally reviewed by me Laboratory Data Attestation: I reviewed the patient's lab results. Result diagrams: 05/15/19 09:14 05/15/19 09:14 Lab Results 05/12/19 05/12/19 05/12/19 Range/Units 11:16 11:20 11:20 WBC 6.29 (4.8-10.8) K/uL RBC 3.64 L (4.2-5.4) M/uL Hgb 11.0 L (12.0-16.0) g/dL POC Hgb (12.0-16.0) g/dl Hct 33.4 L (37-47) % POC Hct (37-47) % MCV 91.8 (80-100) fL MCH 30.2 (25-34) pg MCHC 32.9 (32-36) g/dL RDW Std Deviation 45.1 (36.4-46.3) fL RDW Coeff of Consuelo 13.4 (11.5-14.5) % Plt Count 252 (130-400) K/uL MPV 9.9 (7.4-10.4) fL Immature Gran % (Auto) 0.2 % Neut % (Auto) 63.9 % Lymph % (Auto) 25.6 % [place] % (Auto) 6.8 % Eos % (Auto) 3.0 % Baso % (Auto) 0.5 % Immature Gran # (Auto) 0.01 (0.00-0.02) K/uL Neut # (Auto) 4.02 (1.4-6.5) K/uL Lymph # (Auto) 1.61 (1.2-3.4) K/uL [place] # (Auto) 0.43 (0.11-0.59) K/uL Eos # (Auto) 0.19 (0-0.5) K/uL Baso # (Auto) 0.03 (0-0.2) K/uL POC Sodium (135-144) mEq/L Sodium Cancelled POC Potassium (3.3-5.0) mEq/L Potassium Cancelled POC Chloride (101-112) mEq/L Chloride Cancelled Carbon Dioxide Cancelled POC Total CO2 (24-31) mEq/l Anion Gap Cancelled POC Anion Gap (16-25) mmol/L POC BUN (7-18) mg/dl BUN Cancelled Creatinine Cancelled POC Creatinine (0.6-1.3) mg/dl Est Cr Clr Drug Dosing Cancelled Est GFR ( Amer) Cancelled Est GFR (Non-Af Amer) Cancelled BUN/Creatinine Ratio Cancelled Glucose Cancelled POC Glucose (other) (70-99) mg/dl Calcium Cancelled POC Ioniz Calcium Jorge (1.12-1.32) mmol/l Total Bilirubin Cancelled AST Cancelled ALT Cancelled Alkaline Phosphatase Cancelled Total Creatine Kinase Cancelled Total Protein Cancelled Albumin Cancelled Globulin Cancelled Albumin/Globulin Ratio Cancelled Salicylates Urine Opiates Screen (Neg) Ur Methadone, Qual (Neg) Acetaminophen Urine Barbiturates (Neg) Ur Phencyclidine (PCP) (Neg) U Amphetamin/Meth Scrn (Neg) MDMA (Ecstasy) Screen (Neg) U Benzodiazepines Scrn (Neg) [place] Ur Cocaine Metabolite (Neg) U Marijuana (THC) Screen (Neg) Ethyl Alcohol mg/dL < 3.0 (0-3) mg/dl 05/12/19 05/12/1919 Range/Units 11:20 11:20 12:13 WBC (4.8-10.8) K/uL RBC (4.2-5.4) M/uL Hgb (12.0-16.0) g/dL POC Hgb 11.2 L (12.0-16.0) g/dl Hct (37-47) % POC Hct 33 L (37-47) % MCV (80-100) fL MCH (25-34) pg MCHC (32-36) g/dL RDW Std Deviation (36.4-46.3) fL RDW Coeff of Consuelo (11.5-14.5) % Plt Count (130-400) K/uL MPV (7.4-10.4) fL Immature Gran % (Auto) % Neut % (Auto) % Lymph % (Auto) % [place] % (Auto) % Eos % (Auto) % Baso % (Auto) % Immature Gran # (Auto) (0.00-0.02) K/uL Neut # (Auto) (1.4-6.5) K/uL Lymph # (Auto) (1.2-3.4) K/uL [place] # (Auto) (0.11-0.59) K/uL Eos # (Auto) (0-0.5) K/uL Baso # (Auto) (0-0.2) K/uL POC Sodium 129 L (135-144) mEq/L Sodium 133 L POC Potassium 5.6 H (3.3-5.0) mEq/L Potassium 5.0 POC Chloride 101 (101-112) mEq/L Chloride 103 Carbon Dioxide 24 POC Total CO2 21 L (24-31) mEq/l Anion Gap 7.0 POC Anion Gap 14.0 L (16-25) mmol/L POC BUN 61 H (7-18) mg/dl BUN 45 H Creatinine 2.83 H POC Creatinine 3.1 H (0.6-1.3) mg/dl Est Cr Clr Drug Dosing 38.0 Est GFR ( Amer) 23.4 Est GFR (Non-Af Amer) 20.2 BUN/Creatinine Ratio 16.0 Glucose 79 POC Glucose (other) 86 (70-99) mg/dl Calcium 9.9 POC Ioniz Calcium Jorge 1.18 (1.12-1.32) mmol/l Total Bilirubin 0.3 AST 13 L ALT 36 Alkaline Phosphatase 102 Total Creatine Kinase 27 Total Protein 7.0 Albumin 3.9 Globulin 3.1 Albumin/Globulin Ratio 1.3 Salicylates Cancelled Urine Opiates Screen (Neg) Ur Methadone, Qual (Neg) Acetaminophen Cancelled Urine Barbiturates (Neg) Ur Phencyclidine (PCP) (Neg) U Amphetamin/Meth Scrn (Neg) MDMA (Ecstasy) Screen (Neg) U Benzodiazepines Scrn (Neg) [place] Cancelled Ur Cocaine Metabolite (Neg) U Marijuana (THC) Screen (Neg) Ethyl Alcohol mg/dL (0-3) mg/dl 05/12/19 Range/Units 12:55 WBC (4.8-10.8) K/uL RBC (4.2-5.4) M/uL Hgb (12.0-16.0) g/dL POC Hgb (12.0-16.0) g/dl Hct (37-47) % POC Hct (37-47) % MCV (80-100) fL MCH (25-34) pg MCHC (32-36) g/dL RDW Std Deviation (36.4-46.3) fL RDW Coeff of Consuelo (11.5-14.5) % Plt Count (130-400) K/uL MPV (7.4-10.4) fL Immature Gran % (Auto) % Neut % (Auto) % Lymph % (Auto) % [place] % (Auto) % Eos % (Auto) % Baso % (Auto) % Immature Gran # (Auto) (0.00-0.02) K/uL Neut # (Auto) (1.4-6.5) K/uL Lymph # (Auto) (1.2-3.4) K/uL [place] # (Auto) (0.11-0.59) K/uL Eos # (Auto) (0-0.5) K/uL Baso # (Auto) (0-0.2) K/uL POC Sodium (135-144) mEq/L Sodium POC Potassium (3.3-5.0) mEq/L Potassium POC Chloride (101-112) mEq/L Chloride Carbon Dioxide POC Total CO2 (24-31) mEq/l Anion Gap POC Anion Gap (16-25) mmol/L POC BUN (7-18) mg/dl BUN Creatinine POC Creatinine (0.6-1.3) mg/dl Est Cr Clr Drug Dosing Est GFR ( Amer) Est GFR (Non-Af Amer) BUN/Creatinine Ratio Glucose POC Glucose (other) (70-99) mg/dl Calcium POC Ioniz Calcium Jorge (1.12-1.32) mmol/l Total Bilirubin AST ALT Alkaline Phosphatase Total Creatine Kinase Total Protein Albumin Globulin Albumin/Globulin Ratio Salicylates Urine Opiates Screen Neg (Neg) Ur Methadone, Qual Neg (Neg) Acetaminophen Urine Barbiturates Neg (Neg) Ur Phencyclidine (PCP) Neg (Neg) U Amphetamin/Meth Scrn Neg (Neg) MDMA (Ecstasy) Screen Pos H (Neg) U Benzodiazepines Scrn Neg (Neg) [place] Ur Cocaine Metabolite Neg (Neg) U Marijuana (THC) Screen Neg (Neg) Ethyl Alcohol mg/dL (0-3) mg/dl Imaging Data Radiologist's Impression: Radiology results as stated below per my review and the radiologist's interpretation: XR chest 1V portable HISTORY: Acute renal failure. Confusion. COMPARISON: Chest 04/23/2019. FINDINGS: There are low lung volumes. The heart remains mildly enlarged. No pneumothorax. No pleural effusions. No evidence for pulmonary edema. The lungs are clear. IMPRESSION: No significant change compared to the prior study. No acute process. Stable mild cardiomegaly. Electronically signed by: Ashish Pace M.D. 05/12/2019 11:32 AM ECG Data Attestation: I personally reviewed and interpreted this ECG as follows: Indication: weakness Rate (beats per minute): 52 Rhythm: sinus bradycardia Findings: + 1st degree AV block; no ST depression, no ST elevation and no acute ischemic change Blood Pressure Blood Pressure Findings: Low blood pressure MDM Narrative This is a 38-year-old female who presents emergency department over concerns of the patient is in acute renal failure and her lithium levels are elevated. Her blood pressure was also found to be low. Based on these findings patient was given a normal saline bolus x2. I did discuss her case with the hospitalist service who agreed to admit the patient. Patient was in agreement with the treatment plan. Impression & Plan Acute renal failure Discharge Plan Visit Data *Final* Discharge Date/Time: 05/12/19 15:40 Chief Complaint: Abnormal Labs/Diagnostic Testing ED Provider: Jaylan Srinivasan Discharge Problem: Acute renal failure Patient Disposition: Admitted As Inpatient Discharge Instructions Interventions: ED Discharge Assessment Last Done: 05/12/19 15:40 The scribe's documentation has been prepared under my direction and personally reviewed by me in its entirety. I confirm that the note above accurately reflects all work, treatment, procedures, and medical decision making performed by me.
[2019-05-12] MEDS ORDERED: DOCUSATE SODIUM/SENNA 50/8.6MG TAB PO PRN (16:24)
[2019-05-12] MEDS ORDERED: POLYETHYLENE (MIRALAX) 17 GM PACK PO PRN (16:24)
[2019-05-12 17:41] LABS: BUN Creatinine Ratio 18.7 (10-20); Calcium 9.3 mg/dl (8.5-10.1); Creatinine Clr Calc Pharmacy 43.6 ml/min; Est GFR (African American) 27.5; Est GFR (Non-African American) 23.8; Potassium 4.5 mmol/L (3.5-5.1)
[2019-05-12 17:51] LABS: Partial Thromboplastin Time 27.3 Seconds (21.0-31.0); Prothrombin Time 9.9 Seconds (9.0-12.0)
[2019-05-12] MEDS: SODIUM CHLORIDE 0.9% 1000ML 1,000 ML IV SCH (18:32)
[2019-05-12 20:15] LABS: Appearance Urine Clear (Clear); Bilirubin Urine Negative (Negative); Blood Urine Negative (Negative); Color Urine Yellow; Glucose Urine UA Negative (Negative); Ketones Urine Negative (Negative); Leukocyte Esterase Urine Negative (Negative); Nitrite Urine Negative (Negative); Protein Urine Negative (Negative); Specific Gravity Urine 1.007 (1.000-1.030); Urobilinogen Urine Negative (Negative)
[2019-05-12] MEDS ORDERED: NON-FORMULARY MEDICATION (Melatonin 6 MG) PO SCH (21:00)
[2019-05-12] MEDS: HEPARIN SOD 5,000 UNIT/0.5 ML VIAL SQ SCH (21:06)
[2019-05-12] MEDS ORDERED: cefTRIAXone SODIUM 2,000 MG in DEXTROSE 5% 50 ML IV SCH (22:00)
[2019-05-13] MEDS: SODIUM CHLORIDE 0.9% 1000ML 1,000 ML IV SCH ×3 (02:33→18:02)
[2019-05-13] MEDS: HEPARIN SOD 5,000 UNIT/0.5 ML VIAL SQ SCH ×3 (06:04→22:12)
[2019-05-13 06:38] LABS: Hematocrit (blood only) 34.7 % (37-47); Hemoglobin 11.3 g/dL (12.0-16.0); Mean Corpuscular Hgb Conc 32.6 g/dL (32-36); Mean Corpuscular Volume 92.5 fL (80-100); Mean Platelet Volume 9.5 fL (7.4-10.4); Platelet Count 259 K/uL (130-400); RDW Coefficient of Variation 13.6 % (11.5-14.5); RDW Standard Deviation 46.5 fL (36.4-46.3); Red Blood Count 3.75 M/uL (4.2-5.4)
[2019-05-13 07:10] LABS: BUN Creatinine Ratio 20.3 (10-20); Calcium 9.5 mg/dl (8.5-10.1); Est GFR (African American) 40.9; Est GFR (Non-African American) 35.3; Potassium 4.4 mmol/L (3.5-5.1)
[2019-05-13] MEDS: PANTOprazole 40 MG TAB PO SCH (08:50)
[2019-05-13] MEDS: BuPROPion XL 300 MG TABCR PO SCH (08:50)
[2019-05-13] MEDS: VENLAFAXINE HCL XR 150 MG CAPXR PO SCH (08:51)
[2019-05-13] MEDS: VENLAFAXINE HCL XR 75 MG CAPXR PO SCH (08:51)
--- NOTE | 2019-05-13 16:20 | Hospitalist Progress Note ---
Date of Service May 13, 2019 Assessment & Plan (1) VIANNEY (acute kidney injury): This is a 38-year-old female with a PMH of bipolar disorder, intellectual disability, hypertension, anxiety and other medical problems listed in H&P who presents from [facility] with elevated lithium level and acute kidney injury. Cr elevated at 2.83 (baseline ~0.8 but was elevated to mid-1s during recent March- May admission a few weeks ago), BUN 45 Secondary to poor oral intake Started on IV hydration and advised increase oral intake Hold lithium, lisinopril Urine osmolality is low at 197 and urine random sodium was 44 Creatinine is improved to 1.78 from 2.83 at presentation Monitor PRP (2) [place] toxicity: [place] level elevated at 2.4 at [facility]. Repeating level now -Was elevated during recent admission from 04/23-05/05 at 4 initially, medication dose was decreased to [place] ER 450mg BID -Potassium level has been improving -Continue to hold lisinopril and lithium until the level is within normal range (3) Hypertension: Hypotensive at 97/54, receiving IV fluid resuscitation -Holding Atenolol, lisinopril -Continue monitoring (4) Bipolar disorder: Holding [place] until level normalizes Was evaluated by psychiatrist during her recent hospital admission [place] dose was decreased from 1200 mg/day to 900 mg/day on discharge (5) Depression: Continue Effexor, Wellbutrin (6) GERD (gastroesophageal reflux disease): Continue PPI DVT Ppx: SQ heparin Code status: FULL PCP: Domenico Dispo: Admitted to [facility]. Discharge planning ordered. PT and OT requested Advised to increase fluid intake orally Like to be discharged in 2 to 3 days Subjective 05/13 The patient was seen and examined in medical floor This is a 38-year-old female with a PMH of bipolar disorder, intellectual disability, hypertension, anxiety and other medical problems listed in H&P who presents from [facility] with elevated lithium level and acute kidney injury. She has not been drinking enough fluid She was lethargic but denies any other symptoms Review of Systems Review of Systems: All systems reviewed and are unremarkable except as noted below Constitutional: + fatigue and + weakness Respiratory: no dyspnea Musculoskeletal: No acute arthritis involving any of the joints Neurologic: + generalized weakness Psychiatric: + depression, + anxiety and + confusion (Pleasantly confused) Physical Exam Physical Exam: No apparent distress at rest Constitutional: well developed, well nourished, + ill appearing and + obese; no acute distress Eyes: PERRL, conjunctivae normal, anicteric sclerae ENMT: external ear and nose normal, oropharynx normal Neck: trachea midline, no thyromegaly Respiratory: normal respiratory effort; no respiratory distress and does not use accessory muscles Auscultation: lungs clear to auscultation bilaterally Cardiovascular: Rate/Rhythm: regular rate and regular rhythm Heart Sounds: no murmur Gastrointestinal (Abdomen): Inspection/Auscultation: abdomen normal to inspection and normal bowel sounds Percussion/Palpation: abdomen soft; abdomen nontender Musculoskeletal: No acute arthritis involving any of the joints Skin: no rashes, warm and dry Neurologic: Alert and awake. Has intellectual impairment. Generally weak but does not have any focal neuro deficit Lymphatic: no cervical or axillary lymphadenopathy Results & Data Vital Signs (Past 12 Hours) Vital Signs Temp Pulse Pulse Resp BP Pulse Ox 05/13/19 14:48 36.9 C 66 16 129/73 98 05/13/19 11:00 37 C 63 16 119/73 98 05/13/19 07:07 60 05/13/19 07:00 36.6 C 62 20 106/69 94 Laboratory Results Short CBC 05/13/19 Range/Units 06:22 WBC 6.70 (4.8-10.8) K/uL Hgb 11.3 L (12.0-16.0) g/dL Hct 34.7 L (37-47) % Plt Count 259 (130-400) K/uL BMP 05/12/19 05/13/19 17:04 06:22 Sodium 138 138 Potassium 4.5 4.4 Chloride 108 H 113 H Carbon Dioxide 22 20 L BUN 46 H 36 H Creatinine 2.47 H D 1.78 H D Glucose 80 98 Calcium 9.3 9.5 Urine 05/12/19 Range/Units Unknown Urine Color Yellow Urine Appearance Clear (Clear) Urine pH 7.0 (4.5-7.5) Ur Specific [place] 1.007 (1.000-1.030) Urine Protein Negative (Negative) Urine Glucose (UA) Negative (Negative) Medications Administered Current Inpatient Medications Acetaminophen (Tylenol) 650 mg PO QID PRN PRN Reason: Pain Stop: 06/11/19 16:23 Bupropion HCl (Wellbutrin-Xl) 300 mg PO QAM [facility] Stop: 06/12/19 08:59 Last Admin: 05/13/19 08:50 Dose: 300 mg Documented by: Heparin Sodium (Porcine) (Heparin Sodium (Porcine)) 5,000 units SQ Q8 [facility] Stop: 06/11/19 21:59 Last Admin: 05/13/19 13:59 Dose: 5,000 units Documented by: Sodium Chloride (Nss 1000ml) 1,000 mls @ 75 mls/hr IV .[id number] [facility] Stop: 06/11/19 16:23 Last Admin: 05/13/19 10:35 Dose: 125 mls/hr Documented by: Miscellaneous (Order Awaiting Action) 1 ea N/A QS [facility] Stop: 06/12/19 00:00 Last Admin: 05/13/19 15:18 Dose: Not Given Documented by: Pantoprazole Sodium (Protonix) 40 mg PO DAILY [facility] Stop: 06/12/19 08:59 Last Admin: 05/13/19 08:50 Dose: 40 mg Documented by: Polyethylene Glycol (Miralax Powder Packet) 17 gm PO DAILY PRN PRN Reason: Constipation Stop: 06/11/19 16:23 Senna/Docusate Sodium (Senokot S) 1 tab PO DAILY@1200 PRN PRN Reason: Constipation Stop: 06/11/19 16:23 Venlafaxine HCl (Effexor Extended Release) [address] [facility] Stop: 06/12/19 08:59 Last Admin: 05/13/19 08:51 Dose: 75 mg Documented by: Venlafaxine HCl (Effexor Extended Release) [address] [facility] [place] Stop: 06/12/19 08:59 Last Admin: 05/13/19 08:51 Dose: 150 mg Documented by: (1) [place] toxicity Encounter type: initial encounter Injury intent: undetermined intent Qualified Code(s): T56.894A - Toxic effect of other metals, undetermined, initial encounter (2) Hypertension Hypertension type: unspecified Qualified Code(s): I10 - Essential (primary) hypertension (3) Bipolar disorder Active/Remission status: currently active Current bipolar episode type: manic Current episode severity: severe Psychotic features: with psychotic features Qualified Code(s): F31.2 - Bipolar disorder, current episode manic severe with psychotic features
[2019-05-13] MEDS: ACETAMINOPHEN 325 MG TAB PO PRN (18:00)
[2019-05-14] MEDS: HEPARIN SOD 5,000 UNIT/0.5 ML VIAL SQ SCH ×3 (05:38→21:58)
[2019-05-14] MEDS: SODIUM CHLORIDE 0.9% 1000ML 1,000 ML IV SCH ×3 (05:38→23:43)
[2019-05-14 07:14] LABS: Hemoglobin 10.2 g/dL (12.0-16.0); Mean Corpuscular Hgb Conc 32.9 g/dL (32-36); Mean Corpuscular Volume 92.5 fL (80-100); Mean Platelet Volume 9.8 fL (7.4-10.4); Platelet Count 198 K/uL (130-400); RDW Coefficient of Variation 13.5 % (11.5-14.5); RDW Standard Deviation 46.4 fL (36.4-46.3); Red Blood Count 3.35 M/uL (4.2-5.4); White Blood Count 4.86 K/uL (4.8-10.8)
[2019-05-14 07:50] LABS: BUN Creatinine Ratio 16.5 (10-20); Calcium 9.9 mg/dl (8.5-10.1); Creatinine Clr Calc Pharmacy 88.8 ml/min; Est GFR (African American) 64.6; Est GFR (Non-African American) 55.8; Potassium 4.4 mmol/L (3.5-5.1)
[2019-05-14] MEDS: VENLAFAXINE HCL XR 150 MG CAPXR PO SCH (08:45)
[2019-05-14] MEDS: PANTOprazole 40 MG TAB PO SCH (08:45)
[2019-05-14] MEDS: VENLAFAXINE HCL XR 75 MG CAPXR PO SCH (08:45)
[2019-05-14] MEDS: BuPROPion XL 300 MG TABCR PO SCH (08:45)
--- NOTE | 2019-05-14 16:07 | Hospitalist Progress Note ---
Date of Service May 14, 2019 Assessment & Plan (1) VIANNEY (acute kidney injury): This is a 38-year-old female with a PMH of bipolar disorder, intellectual disability, hypertension, anxiety and other medical problems listed in H&P who presents from [facility] with elevated lithium level and acute kidney injury. Cr elevated at 2.83 (baseline ~0.8 but was elevated to mid-1s during recent March- May admission a few weeks ago), BUN 45 Secondary to poor oral intake Started on IV hydration and advised increase oral intake Hold lithium, lisinopril Urine osmolality is low at 197 and urine random sodium was 44 Creatinine is improved to 1.78 from 2.83 at presentation Creatinine is much improved to 1.22 from 2.83 on admission We will discontinue IV fluid and advised to drink more fluid oral Monitor. (2) [place] toxicity: [place] level elevated at 2.4 at [facility]. Repeating level now -Was elevated during recent admission from 04/23-05/05 at 4 initially, medication dose was decreased to [place] ER 450mg BID -Potassium level has been improving -Continue to hold lisinopril and lithium until the level is within normal range -[place] level is 1.4 today. Will discuss with psychiatrist to modify the dose of lithium on (3) Hypertension: Hypotensive at 97/54, receiving IV fluid resuscitation -Holding Atenolol, lisinopril -Continue monitoring (4) Bipolar disorder: Holding [place] until level normalizes Was evaluated by psychiatrist during her recent hospital admission [place] dose was decreased from 1200 mg/day to 900 mg/day on discharge (5) Depression: Continue Effexor, Wellbutrin (6) GERD (gastroesophageal reflux disease): Continue PPI DVT Ppx: SQ heparin Code status: FULL PCP: Domenico Dispo: Admitted to [facility]. Discharge planning ordered. PT and OT requested Advised to increase fluid intake orally Like to be discharged in 2 to 3 days Subjective 05/13 The patient was seen and examined in medical floor This is a 38-year-old female with a PMH of bipolar disorder, intellectual disability, hypertension, anxiety and other medical problems listed in H&P who presents from [facility] with elevated lithium level and acute kidney injury. She has not been drinking enough fluid She was lethargic but denies any other symptoms 05/14 Patient is seen and examined medical floor She has been feeling much better denies any symptoms Her kidney function and lithium level have improved She has been getting up with physical therapy Review of Systems Review of Systems: All systems reviewed and are unremarkable except as noted below Constitutional: + fatigue and + weakness Musculoskeletal: No acute arthritis involving any of the joints Neurologic: + generalized weakness Psychiatric: + depression, + anxiety and + confusion (Pleasantly confused) Physical Exam Physical Exam: No apparent distress at rest. Sitting on chair out of bed Constitutional: well developed, well nourished and + obese; no acute distress Eyes: PERRL, conjunctivae normal, anicteric sclerae ENMT: external ear and nose normal, oropharynx normal Neck: trachea midline, no thyromegaly Respiratory: normal respiratory effort; no respiratory distress and does not use accessory muscles Auscultation: lungs clear to auscultation bilaterally Cardiovascular: Rate/Rhythm: regular rate and regular rhythm Heart Sounds: no murmur Gastrointestinal (Abdomen): Inspection/Auscultation: abdomen normal to inspection and normal bowel sounds Percussion/Palpation: abdomen soft; abdomen nontender Musculoskeletal: No acute arthritis involving any joint Skin: no rashes, warm and dry Neurologic: Alert, awake, pleasantly confused. Generally weak but no focal neuro deficit Lymphatic: no cervical or axillary lymphadenopathy Results & Data Vital Signs (Past 12 Hours) Vital Signs Temp Pulse Resp BP Pulse Ox 05/14/19 11:44 36.6 C 77 20 136/84 100 05/14/19 11:34 98 05/14/19 07:18 36.6 C 75 20 130/83 95 Laboratory Results Short CBC 05/14/19 Range/Units 06:47 WBC 4.86 (4.8-10.8) K/uL Hgb 10.2 L (12.0-16.0) g/dL Hct 31.0 L (37-47) % Plt Count 198 (130-400) K/uL BMP 05/14/19 06:47 Sodium 141 Potassium 4.4 Chloride 115 H Carbon Dioxide 21 BUN 20 H Creatinine 1.22 H D Glucose 98 Calcium 9.9 Medications Administered Current Inpatient Medications Acetaminophen (Tylenol) 650 mg PO QID PRN PRN Reason: Pain Stop: 06/11/19 16:23 Last Admin: 05/13/19 18:00 Dose: 650 mg Documented by: Bupropion HCl (Wellbutrin-Xl) 300 mg PO QAM [facility] Stop: 06/12/19 08:59 Last Admin: 05/14/19 08:45 Dose: 300 mg Documented by: Heparin Sodium (Porcine) (Heparin Sodium (Porcine)) 5,000 units SQ Q8 [facility] Stop: 06/11/19 21:59 Last Admin: 05/14/19 13:49 Dose: 5,000 units Documented by: Sodium Chloride (Nss 1000ml) 1,000 mls @ 75 mls/hr IV .[id number] [facility] Stop: 06/11/19 16:23 Last Admin: 05/14/19 13:53 Dose: 125 mls/hr Documented by: Miscellaneous (Order Awaiting Action) 1 ea N/A QS [facility] Stop: 06/12/19 00:00 Last Admin: 05/14/19 07:57 Dose: Not Given Documented by: Pantoprazole Sodium (Protonix) 40 mg PO DAILY [facility] Stop: 06/12/19 08:59 Last Admin: 05/14/19 08:45 Dose: 40 mg Documented by: Polyethylene Glycol (Miralax Powder Packet) 17 gm PO DAILY PRN PRN Reason: Constipation Stop: 06/11/19 16:23 Senna/Docusate Sodium (Senokot S) 1 tab PO DAILY@1200 PRN PRN Reason: Constipation Stop: 06/11/19 16:23 Venlafaxine HCl (Effexor Extended Release) 75 mg PO QAM [facility] Stop: 06/12/19 08:59 Last Admin: 05/14/19 08:45 Dose: 75 mg Documented by: Venlafaxine HCl (Effexor Extended Release) 150 mg PO QAM [facility] Stop: 06/12/19 08:59 Last Admin: 05/14/19 08:45 Dose: 150 mg Documented by: (1) [place] toxicity Encounter type: initial encounter Injury intent: undetermined intent Qualified Code(s): T56.894A - Toxic effect of other metals, undetermined, initial encounter (2) Hypertension Hypertension type: unspecified Qualified Code(s): I10 - Essential (primary) hypertension (3) Bipolar disorder Active/Remission status: currently active Current bipolar episode type: manic Current episode severity: severe Psychotic features: with psychotic features Qualified Code(s): F31.2 - Bipolar disorder, current episode manic severe with psychotic features
[2019-05-14] MEDS: ACETAMINOPHEN 325 MG TAB PO PRN (22:41)
[2019-05-15] MEDS: HEPARIN SOD 5,000 UNIT/0.5 ML VIAL SQ SCH ×3 (05:30→21:23)
[2019-05-15] MEDS: VENLAFAXINE HCL XR 150 MG CAPXR PO SCH (08:31)
[2019-05-15] MEDS: PANTOprazole 40 MG TAB PO SCH (08:31)
[2019-05-15] MEDS: VENLAFAXINE HCL XR 75 MG CAPXR PO SCH (08:32)
[2019-05-15] MEDS: BuPROPion XL 300 MG TABCR PO SCH (08:32)
[2019-05-15 09:25] LABS: Basophils # (auto) 0.02 K/uL (0-0.2); Basophils % (auto) 0.5 %; Eosinophils # (auto) 0.12 K/uL (0-0.5); Eosinophils % (auto) 2.8 %; Hematocrit (blood only) 31.1 % (37-47); Hemoglobin 10.2 g/dL (12.0-16.0); Lymphocytes # (auto) 1.37 K/uL (1.2-3.4); Lymphocytes % (auto) 31.7 %; Mean Corpuscular Hgb Conc 32.8 g/dL (32-36); Mean Corpuscular Volume 92.8 fL (80-100); Mean Platelet Volume 8.8 fL (7.4-10.4); Monocytes # (auto) 0.31 K/uL (0.11-0.59); Monocytes % (auto) 7.2 %; Neutrophils % (auto) 57.8 %; Platelet Count 168 K/uL (130-400); RDW Coefficient of Variation 13.6 % (11.5-14.5); RDW Standard Deviation 46.3 fL (36.4-46.3); Red Blood Count 3.35 M/uL (4.2-5.4); White Blood Count 4.32 K/uL (4.8-10.8)
[2019-05-15 09:44] LABS: BUN Creatinine Ratio 11.2 (10-20); Calcium 9.5 mg/dl (8.5-10.1); Creatinine Clr Calc Pharmacy 89.8 ml/min; Est GFR (African American) 65.3; Est GFR (Non-African American) 56.3; Magnesium 1.7 mg/dl (1.8-2.4); Potassium 4.5 mmol/L (3.5-5.1)
--- NOTE | 2019-05-15 13:30 | Hospitalist Progress Note ---
Date of Service May 15, 2019 Assessment & Plan (1) VIANNEY (acute kidney injury): This is a 38-year-old female with a PMH of bipolar disorder, intellectual disability, hypertension, anxiety and other medical problems listed in H&P who presents from [facility] with elevated lithium level and acute kidney injury. Cr elevated at 2.83 (baseline ~0.8 but was elevated to mid-1s during recent March- May admission a few weeks ago), BUN 45 Secondary to poor oral intake Started on IV hydration and advised increase oral intake Hold lithium, lisinopril Urine osmolality is low at 197 and urine random sodium was 44 Creatinine is improved to 1.78 from 2.83 at presentation Creatinine is much improved to 1.22 from 2.83 on admission We will discontinue IV fluid and advised to drink more fluid oral We will check PRP tomorrow (2) [place] toxicity: [place] level elevated at 2.4 at [facility]. Repeating level now -Was elevated during recent admission from 04/23-05/05 at 4 initially, medication dose was decreased to [place] ER 450mg BID -Potassium level has been improving -Continue to hold lisinopril and lithium until the level is within normal range -[place] level is 1.4 today. Will discuss with psychiatrist to modify the dose of lithium on -Clinically much better, check lithium level again tomorrow (3) Hypertension: Hypotensive at 97/54, receiving IV fluid resuscitation -Holding Atenolol, lisinopril -Continue monitoring -Blood pressure is controlled and will not restart lisinopril (4) Bipolar disorder: Holding [place] until level normalizes Was evaluated by psychiatrist during her recent hospital admission [place] dose was decreased from 1200 mg/day to 900 mg/day on discharge We will discuss with psychiatrist before discharging the patient and starting lithium again (5) Depression: Continue Effexor, Wellbutrin (6) GERD (gastroesophageal reflux disease): Continue PPI DVT Ppx: SQ heparin Code status: FULL PCP: Domenico Dispo: Admitted to [facility]. Discharge planning ordered. PT and OT requested Advised to increase fluid intake orally Like to be discharged in 2 to 3 days Subjective 05/13 The patient was seen and examined in medical floor This is a 38-year-old female with a PMH of bipolar disorder, intellectual disability, hypertension, anxiety and other medical problems listed in H&P who presents from [facility] with elevated lithium level and acute kidney injury. She has not been drinking enough fluid She was lethargic but denies any other symptoms 05/14 Patient is seen and examined medical floor She has been feeling much better denies any symptoms Her kidney function and lithium level have improved She has been getting up with physical therapy 05/15 The patient was seen and examined in medical floor Denies any symptoms whatsoever Review of Systems Review of Systems: All systems reviewed and are unremarkable except as noted below Constitutional: + fatigue and + weakness Musculoskeletal: No acute arthritis involving any of the joints Neurologic: + generalized weakness Psychiatric: + depression, + anxiety and + confusion (Pleasantly confused) Physical Exam Physical Exam: No apparent distress at rest Constitutional: well developed, well nourished and + obese; no acute distress Eyes: PERRL, conjunctivae normal, anicteric sclerae ENMT: external ear and nose normal, oropharynx normal Neck: trachea midline, no thyromegaly Respiratory: normal respiratory effort; no respiratory distress and does not use accessory muscles Auscultation: lungs clear to auscultation bilaterally Cardiovascular: Rate/Rhythm: regular rate and regular rhythm Heart Sounds: no murmur Gastrointestinal (Abdomen): Inspection/Auscultation: abdomen normal to inspection and normal bowel sounds Percussion/Palpation: abdomen soft; abdomen nontender Musculoskeletal: No acute arthritis involving any of the joints Skin: no rashes, warm and dry Neurologic: Alert, awake. Pleasantly confused Lymphatic: no cervical or axillary lymphadenopathy Results & Data Vital Signs (Past 12 Hours) Vital Signs Temp Pulse Pulse Resp BP BP Pulse Ox 05/15/19 12:08 36.9 C 82 18 138/83 100 05/15/19 08:40 87 05/15/19 07:57 36.6 C 84 18 144/78 H 97 05/15/19 03:57 36.7 C 79 18 120/74 97 Laboratory Results Short CBC 05/15/19 Range/Units 09:14 WBC 4.32 L (4.8-10.8) K/uL Hgb 10.2 L (12.0-16.0) g/dL Hct 31.1 L (37-47) % Plt Count 168 (130-400) K/uL BMP 05/15/19 09:14 Sodium 142 Potassium 4.5 Chloride 114 H Carbon Dioxide 20 L BUN 14 Creatinine 1.21 H Glucose 156 H Calcium 9.5 Medications Administered Current Inpatient Medications Acetaminophen (Tylenol) 650 mg PO QID PRN PRN Reason: Pain Stop: 06/11/19 16:23 Last Admin: 05/14/19 22:41 Dose: 650 mg Documented by: Bupropion HCl (Wellbutrin-Xl) 300 mg PO QAM [facility] Stop: 06/12/19 08:59 Last Admin: 05/15/19 08:32 Dose: 300 mg Documented by: Heparin Sodium (Porcine) (Heparin Sodium (Porcine)) 5,000 units SQ Q8 [facility] Stop: 06/11/19 21:59 Last Admin: 05/15/19 05:30 Dose: 5,000 units Documented by: Sodium Chloride (Nss 1000ml) 1,000 mls @ 75 mls/hr IV .[id number] [facility] Stop: 06/11/19 16:23 Last Admin: 05/14/19 23:43 Dose: 75 mls/hr Documented by: Pantoprazole Sodium (Protonix) 40 mg PO DAILY [facility] Stop: 06/12/19 08:59 Last Admin: 05/15/19 08:31 Dose: 40 mg Documented by: Polyethylene Glycol (Miralax Powder Packet) 17 gm PO DAILY PRN PRN Reason: Constipation Stop: 06/11/19 16:23 Senna/Docusate Sodium (Senokot S) 1 tab PO DAILY@1200 PRN PRN Reason: Constipation Stop: 06/11/19 16:23 Venlafaxine [facility] ([facility] Extended Release) [facility] Stop: 06/12/19 08:59 Last Admin: 05/15/19 08:32 Dose: 75 mg Documented by: Venlafaxine HCl (Effexor Extended Release) 150 mg PO QAM [facility] Stop: 06/12/19 08:59 Last Admin: 05/15/19 08:31 Dose: 150 mg Documented by: (1) [place] toxicity Encounter type: initial encounter Injury intent: undetermined intent Qualified Code(s): T56.894A - Toxic effect of other metals, undetermined, initial encounter (2) Hypertension Hypertension type: unspecified Qualified Code(s): I10 - Essential (primary) hypertension (3) Bipolar disorder Active/Remission status: currently active Current bipolar episode type: manic Current episode severity: severe Psychotic features: with psychotic features Qualified Code(s): F31.2 - Bipolar disorder, current episode manic severe with psychotic features
[2019-05-15] MEDS: SODIUM CHLORIDE 0.9% 1000ML 1,000 ML IV SCH (14:42)
[2019-05-16] MEDS: SODIUM CHLORIDE 0.9% 1000ML 1,000 ML IV SCH (03:56)
[2019-05-16] MEDS: HEPARIN SOD 5,000 UNIT/0.5 ML VIAL SQ SCH ×3 (05:58→20:59)
[2019-05-16 06:46] LABS: Basophils # (auto) 0.02 K/uL (0-0.2); Basophils % (auto) 0.4 %; Eosinophils # (auto) 0.24 K/uL (0-0.5); Eosinophils % (auto) 4.5 %; Hematocrit (blood only) 29.9 % (37-47); Immature Granulocytes # (auto) 0.01 K/uL (0.00-0.02); Immature Granulocytes % (auto) 0.2 %; Lymphocytes # (auto) 2.02 K/uL (1.2-3.4); Lymphocytes % (auto) 38.1 %; Mean Corpuscular Hgb Conc 33.4 g/dL (32-36); Mean Platelet Volume 9.1 fL (7.4-10.4); Monocytes % (auto) 5.7 %; Neutrophils # (auto) 2.71 K/uL (1.4-6.5); Neutrophils % (auto) 51.1 %; Platelet Count 188 K/uL (130-400); RDW Coefficient of Variation 13.9 % (11.5-14.5); RDW Standard Deviation 46.4 fL (36.4-46.3); Red Blood Count 3.25 M/uL (4.2-5.4)
[2019-05-16 07:12] LABS: BUN Creatinine Ratio 9.3 (10-20); Creatinine Clr Calc Pharmacy 105.5 ml/min; Est GFR (African American) 79.3; Est GFR (Non-African American) 68.4
[2019-05-16] MEDS: VENLAFAXINE HCL XR 150 MG CAPXR PO SCH (08:20)
[2019-05-16] MEDS: VENLAFAXINE HCL XR 75 MG CAPXR PO SCH (08:20)
[2019-05-16] MEDS: BuPROPion XL 300 MG TABCR PO SCH (08:20)
[2019-05-16] MEDS: PANTOprazole 40 MG TAB PO SCH (08:20)
[2019-05-16] MEDS ORDERED: BISACODYL 10 MG SUPP PR STA (09:45)
[2019-05-16] MEDS ORDERED: SOD PHOSPHATE/SOD BIPHOSPHATE ENEMA 132 ML BTL PR PRN (11:00)
--- NOTE | 2019-05-16 12:56 | Hospitalist Progress Note ---
Date of Service May 16, 2019 Assessment & Plan (1) VIANNEY (acute kidney injury): This is a 38-year-old female with a PMH of bipolar disorder, intellectual disability, hypertension, anxiety and other medical problems listed in H&P who presents from [facility] with elevated lithium level and acute kidney injury. Cr elevated at 2.83 (baseline ~0.8 but was elevated to mid-1s during recent March- May admission a few weeks ago), BUN 45 Secondary to poor oral intake Started on IV hydration and advised increase oral intake Hold lithium, lisinopril Urine osmolality is low at 197 and urine random sodium was 44 Creatinine is improved to 1.78 from 2.83 at presentation Creatinine is much improved to 1.22 from 2.83 on admission We will discontinue IV fluid and advised to drink more fluid oral Kidney function and lithium level have been normalized Discontinue IV fluid and advised to drink more water [place] restarted (2) [place] toxicity: [place] level elevated at 2.4 at [facility]. Repeating level now -Was elevated during recent admission from 04/23-05/05 at 4 initially, medication dose was decreased to [place] ER 450mg BID -Potassium level has been improving -Continue to hold lisinopril and lithium until the level is within normal range -[place] level is 1.4 today. Will discuss with psychiatrist to modify the dose of lithium on -Clinically much better, check lithium level again tomorrow -[place] level is 0.7 today, lithium 450 mg twice daily is restarted (3) Hypertension: Hypotensive at 97/54, receiving IV fluid resuscitation -Holding Atenolol, lisinopril -Continue monitoring -Blood pressure is controlled and will not restart lisinopril (4) Bipolar disorder: Holding [place] until level normalizes Was evaluated by psychiatrist during her recent hospital admission [place] dose was decreased from 1200 mg/day to 900 mg/day on discharge We will discuss with psychiatrist before discharging the patient and starting lithium again (5) Depression: Continue Effexor, Wellbutrin (6) GERD (gastroesophageal reflux disease): Continue PPI DVT Ppx: SQ heparin Code status: FULL PCP: Domenico Dispo: Admitted to [facility]. Discharge planning ordered. PT and OT requested Advised to increase fluid intake orally Likely be discharged tomorrow Subjective 05/13 The patient was seen and examined in medical floor This is a 38-year-old female with a PMH of bipolar disorder, intellectual disability, hypertension, anxiety and other medical problems listed in H&P who presents from [facility] with elevated lithium level and acute kidney injury. She has not been drinking enough fluid She was lethargic but denies any other symptoms 05/14 Patient is seen and examined medical floor She has been feeling much better denies any symptoms Her kidney function and lithium level have improved She has been getting up with physical therapy 05/15 The patient was seen and examined in medical floor Denies any symptoms whatsoever 05/16 The patient was seen and examined in medical floor She denies any symptoms whatsoever Her kidney function is normalized and lithium level is normalized too Review of Systems Review of Systems: All systems reviewed and are unremarkable except as noted below Constitutional: + fatigue and + weakness Musculoskeletal: No acute arthritis involving any of the joints Neurologic: + generalized weakness Psychiatric: + depression, + anxiety and + confusion (Pleasantly confused) Physical Exam Physical Exam: Lying in bed comfortably Constitutional: well developed, well nourished and + obese; no acute distress Eyes: PERRL, conjunctivae normal, anicteric sclerae ENMT: external ear and nose normal, oropharynx normal Neck: trachea midline, no thyromegaly Respiratory: normal respiratory effort; no respiratory distress and does not use accessory muscles Auscultation: lungs clear to auscultation bilaterally Cardiovascular: Rate/Rhythm: regular rate and regular rhythm Heart Sounds: no murmur Gastrointestinal (Abdomen): Inspection/Auscultation: abdomen normal to inspection and normal bowel sounds Percussion/Palpation: abdomen soft; abdomen nontender Skin: no rashes, warm and dry Psychiatric: Orientation: cooperative Mood: + depressed mood and + anxious mood Lymphatic: no cervical or axillary lymphadenopathy Results & Data Vital Signs (Past 12 Hours) Vital Signs Temp Pulse Pulse Resp BP BP Pulse Ox 05/16/19 12:00 36.7 C 72 18 132/83 96 05/16/19 08:30 80 05/16/19 07:26 36.5 C 70 18 143/82 H 97 05/16/19 04:17 36.7 C 79 18 128/76 95 Laboratory Results Short CBC 05/16/19 Range/Units 06:23 WBC 5.30 (4.8-10.8) K/uL Hgb 10.0 L (12.0-16.0) g/dL Hct 29.9 L (37-47) % Plt Count 188 (130-400) K/uL BMP 05/16/19 06:23 Sodium 140 Potassium 4.0 Chloride 114 H Carbon Dioxide 21 BUN 10 Creatinine 1.03 Glucose 93 Calcium 9.0 Medications Administered Current Inpatient Medications Acetaminophen (Tylenol) 650 mg PO QID PRN PRN Reason: Pain Stop: 06/11/19 16:23 Last Admin: 05/14/19 22:41 Dose: 650 mg Documented by: Bupropion HCl (Wellbutrin-Xl) 300 mg PO QAM [facility] Stop: 06/12/19 08:59 Last Admin: 05/16/19 08:20 Dose: 300 mg Documented by: Heparin Sodium (Porcine) (Heparin Sodium (Porcine)) 5,000 units SQ Q8 [facility] Stop: 06/11/19 21:59 Last Admin: 05/16/19 05:58 Dose: 5,000 units Documented by: [place] Carbonate (Eskalith) 450 mg PO BID [facility] Stop: 06/15/19 20:59 Pantoprazole Sodium (Protonix) 40 mg PO DAILY [facility] Stop: 06/12/19 08:59 Last Admin: 05/16/19 08:20 Dose: 40 mg Documented by: Polyethylene Glycol (Miralax Powder Packet) 17 gm PO DAILY PRN PRN Reason: Constipation Stop: 06/11/19 16:23 Senna/Docusate Sodium (Senokot S) 1 tab PO DAILY@1200 PRN PRN Reason: Constipation Stop: 06/11/19 16:23 Sodium Biphosphate/Sodium Phosphate (Fleet Enema) 132 ml DE 1100 PRN PRN Reason: IF NO BM Stop: 05/16/19 16:00 Venlafaxine HCl (Effexor Extended Release) 75 mg PO QAM [facility] Stop: 06/12/19 08:59 Last Admin: 05/16/19 08:20 Dose: 75 mg Documented by: Venlafaxine HCl (Effexor Extended Release) 150 mg PO QAM [facility] Stop: 06/12/19 08:59 Last Admin: 05/16/19 08:20 Dose: 150 mg Documented by: (1) [place] toxicity Encounter type: initial encounter Injury intent: undetermined intent Qualified Code(s): T56.894A - Toxic effect of other metals, undetermined, in itial encounter (2) Hypertension Hypertension type: unspecified Qualified Code(s): I10 - Essential (primary) hypertension (3) Bipolar disorder Active/Remission status: currently active Current bipolar episode type: manic Current episode severity: severe Psychotic features: with psychotic features Qualified Code(s): F31.2 - Bipolar disorder, current episode manic severe with psychotic features
[2019-05-16] MEDS: LITHIUM CARBONATE 450 MG TABCR PO SCH (20:58)
[2019-05-17] MEDS: HEPARIN SOD 5,000 UNIT/0.5 ML VIAL SQ SCH ×3 (05:59→21:19)
[2019-05-17] MEDS: PANTOprazole 40 MG TAB PO SCH (08:42)
[2019-05-17] MEDS: VENLAFAXINE HCL XR 150 MG CAPXR PO SCH (08:42)
[2019-05-17] MEDS: LITHIUM CARBONATE 450 MG TABCR PO SCH (08:42)
[2019-05-17] MEDS: VENLAFAXINE HCL XR 75 MG CAPXR PO SCH (08:42)
[2019-05-17] MEDS: BuPROPion XL 300 MG TABCR PO SCH (08:42)
--- NOTE | 2019-05-17 11:26 | Hospitalist Progress Note ---
Date of Service May 17, 2019 Assessment & Plan (1) VIANNEY (acute kidney injury): This is a 38-year-old female with a PMH of bipolar disorder, intellectual disability, hypertension, anxiety and other medical problems listed in H&P who presents from [facility] with elevated lithium level and acute kidney injury. Cr elevated at 2.83 (baseline ~0.8 but was elevated to mid-1s during recent March- May admission a few weeks ago), BUN 45 Secondary to poor oral intake Started on IV hydration and advised increase oral intake Hold lithium, lisinopril Urine osmolality is low at 197 and urine random sodium was 44 Creatinine is improved to 1.78 from 2.83 at presentation Creatinine is much improved to 1.22 from 2.83 on admission We will discontinue IV fluid and advised to drink more fluid oral Kidney function and lithium level have been normalized Discontinue IV fluid and advised to drink more water Strongly advised to drink plenty of fluid Will require periodic PRP check (2) [place] toxicity: [place] level elevated at 2.4 at [facility]. Repeating level now -Was elevated during recent admission from 04/23-05/05 at 4 initially, medication dose was decreased to [place] ER 450mg BID -Potassium level has been improving -Continue to hold lisinopril and lithium until the level is within normal range -[place] level is 1.4 today. Will discuss with psychiatrist to modify the dose of lithium on -Clinically much better, check lithium level again tomorrow -[place]en[place] level is 0.7 today, lithium 450 mg twice daily is restarted -Discussed with Dr. Min and lithium dose was decreased to 300 mg twice daily -We will discharge her on lithium 300 twice daily -Please have periodic check on lithium level (3) Hypertension: Hypotensive at 97/54, receiving IV fluid resuscitation -Holding Atenolol, lisinopril -Continue monitoring -Blood pressure is controlled and will not restart lisinopril -May need to add some other antihypertensive blood pressure is not controlled (4) Bipolar disorder: Holding [place] until level normalizes Was evaluated by psychiatrist during her recent hospital admission [place] dose was decreased from 1200 mg/day to 900 mg/day on discharge We will discuss with psychiatrist before discharging the patient and starting lithium again (5) Depression: Continue Effexor, Wellbutrin (6) GERD (gastroesophageal reflux disease): Continue PPI DVT Ppx: SQ heparin Code status: FULL PCP: Holencik Dispo: Admitted to [facility]. Discharge planning ordered. PT and OT requested Advised to increase fluid intake orally Will be discharged today or tomorrow Subjective 05/13 The patient was seen and examined in medical floor This is a 38-year-old female with a PMH of bipolar disorder, intellectual disability, hypertension, anxiety and other medical problems listed in H&P who presents from [facility] with elevated lithium level and acute kidney injury. She has not been drinking enough fluid She was lethargic but denies any other symptoms 05/14 Patient is seen and examined medical floor She has been feeling much better denies any symptoms Her kidney function and lithium level have improved She has been getting up with physical therapy 05/15 The patient was seen and examined in medical floor Denies any symptoms whatsoever 05/16 The patient was seen and examined in medical floor She denies any symptoms whatsoever Her kidney function is normalized and lithium level is normalized too 05/17 The patient was seen and examined in medical floor She denies to have any symptoms She denies any pain in the joints has been getting physical therapy She is ready to be discharged from the hospital Review of Systems Review of Systems: All systems reviewed and are unremarkable except as noted below Constitutional: + weakness Musculoskeletal: No acute arthritis involving any of the joints Neurologic: + generalized weakness Psychiatric: + depression, + anxiety and + confusion (Pleasantly confused) Physical Exam Physical Exam: Lying in bed comfortably Constitutional: well developed, well nourished and + obese; no acute distress Eyes: PERRL, conjunctivae normal, anicteric sclerae ENMT: external ear and nose normal, oropharynx normal Neck: trachea midline, no thyromegaly Respiratory: normal respiratory effort; no respiratory distress and does not use accessory muscles Auscultation: lungs clear to auscultation bilaterally Cardiovascular: Rate/Rhythm: regular rate and regular rhythm Heart Sounds: no murmur Gastrointestinal (Abdomen): Inspection/Auscultation: abdomen normal to inspection and normal bowel sounds Percussion/Palpation: abdomen soft; abdomen nontender Musculoskeletal: No acute arthritis in any joints Skin: no rashes, warm and dry Psychiatric: Orientation: cooperative Mood: + depressed mood and + anxious mood Lymphatic: no cervical or axillary lymphadenopathy Results & Data Vital Signs (Past 12 Hours) Vital Signs Temp Pulse Pulse Resp BP Pulse Ox 06/17/19 08:00 75 05/17/19 07:00 37 C 71 18 141/84 H 96 05/17/19 03:37 36.6 C 89 18 144/88 H 95 05/16/19 23:51 75 Medications Administered Current Inpatient Medications Acetaminophen (Tylenol) 650 mg PO QID PRN PRN Reason: Pain Stop: 06/11/19 16:23 Last Admin: 05/14/19 22:41 Dose: 650 mg Documented by: Bupropion HCl (Wellbutrin-Xl) 300 mg PO QAM [facility] Stop: 06/12/19 08:59 Last Admin: 05/17/19 08:42 Dose: 300 mg Documented by: Heparin Sodium (Porcine) (Heparin Sodium (Porcine)) 5,000 units SQ Q8 [facility] Stop: 06/11/19 21:59 Last Admin: 05/17/19 05:59 Dose: 5,000 units Documented by: [place] Carbonate (Eskalith) 300 mg PO BID [facility] Stop: 06/16/19 20:59 Pantoprazole Sodium (Protonix) 40 mg PO DAILY [facility] Stop: 06/12/19 08:59 Last Admin: 05/17/19 08:42 Dose: 40 mg Documented by: Polyethylene Glycol (Miralax Powder Packet) 17 gm PO DAILY PRN PRN Reason: Constipation Stop: 06/11/19 16:23 Senna/Docusate Sodium (Senokot S) 1 tab PO DAILY@1200 PRN PRN Reason: Constipation Stop: 06/11/19 16:23 Venlafaxine HCl (Effexor Extended Release) 75 mg PO QAM [facility] Stop: 06/12/19 08:59 Last Admin: 05/17/19 08:42 Dose: 75 mg Documented by: Venlafaxine HCl (Effexor Extended Release) 150 mg PO QAM [facility] Stop: 06/12/19 08:59 Last Admin: 05/17/19 08:42 Dose: 150 mg Documented by: (1) [place] toxicity Encounter type: initial encounter Injury intent: undetermined intent Qualified Code(s): T56.894A - Toxic effect of other metals, undetermined, initial encounter (2) Hypertension Hypertension type: unspecified Qualified Code(s): I10 - Essential (primary) hypertension (3) Bipolar disorder Active/Remission status: currently active Current bipolar episode type: manic Current episode severity: severe Psychotic features: with psychotic features Qualified Code(s): F31.2 - Bipolar disorder, current episode manic severe with psychotic features
--- NOTE | 2019-05-17 12:17 | XRay Report ---
XR knee RT 2V routine CLINICAL HISTORY: 38 years-old Female presenting with Right tibial plateau fracture. TECHNIQUE: Frontal and crosstable lateral views of the right knee were obtained. COMPARISON: 04/22/2019. FINDINGS: Subacute comminuted fracture of the lateral tibial plateau with articular surface irregularity and co rtical step-off of at least 4 mm. Alignment appears unchanged from prior. There is no osseous bridgin g across the primary fracture plane. Evaluation for interposed cortical fragments cannot be made by r adiograph. No new osseous abnormality. A small knee joint effusion may be present. Mild osteophytosis evident in the patellofemoral compartment. Thickening of the patellar tendon may suggest associated bursitis or presence of a tear. IMPRESSION: Unchanged appearance of the subacute comminuted lateral tibial plateau fracture with nonunion. Stable degree of articular surface step-off. No new malalignment. Assessment for potential interposed corti rj fragments within the fracture plane cannot be made by radiograph. Electronically signed by: Manolo Banerjee M.D. 05/17/2019 12:16 PM
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
[2019-05-17] MEDS: ACETAMINOPHEN 325 MG TAB PO PRN (16:50)
[2019-05-17] MEDS: LITHIUM CARBONATE SLOW REL 300 MG TAB PO SCH (21:18)
[2019-05-18] MEDS: HEPARIN SOD 5,000 UNIT/0.5 ML VIAL SQ SCH ×2 (05:43→14:00)
--- NOTE | 2019-05-18 07:38 | Orthopedic Progress Note ---
Date of Service May 18, 2019 Assessment & Plan (1) Tibial plateau fracture, right: We will progress her to full weightbearing as tolerated. I see that physical therapy has already been ordered. She will most likely need a walker for ambulation. She can do full range of motion of her right knee and do full strengthening exercises. I want her to follow-up in my office in 2 months for repeat x-rays to make sure that the fracture is healing okay and that she is progressing with her ambulation and her strengthening. If you have any questions regarding her care please feel free to contact me personally on my cell phone at [phone]. Present on Admission?: Yes Subjective Yandy was seen yesterday by my partner . We discussed her care. I reviewed her images remotely from the office. She is now 3 months out from a lateral tibial plateau fracture. I was supposed or see her in the office yesterday to progress her weightbearing status to full weightbearing. Unfortunately she has been hospitalized due to other medical conditions. Repeat x-rays of the right knee were done while she was in the hospital and it showed a slight depression of the lateral tibial plateau. Orthopedics was consulted to evaluate and treat. Results & Data Vital Signs (Past 12 Hours) Vital Signs Temp Pulse Pulse Resp BP Pulse Ox 05/18/19 04:22 36.9 C 69 18 106/60 97 05/18/19 00:00 71 05/17/19 23:26 36.6 C 70 18 106/70 94
[2019-05-18] MEDS: VENLAFAXINE HCL XR 150 MG CAPXR PO SCH (08:55)
[2019-05-18] MEDS: PANTOprazole 40 MG TAB PO SCH (08:55)
[2019-05-18] MEDS: LITHIUM CARBONATE SLOW REL 300 MG TAB PO SCH (08:55)
[2019-05-18] MEDS: BuPROPion XL 300 MG TABCR PO SCH (08:56)
[2019-05-18] MEDS: VENLAFAXINE HCL XR 75 MG CAPXR PO SCH (08:56)
[2019-05-18 10:17] LABS: BUN Creatinine Ratio 6.9 (10-20); Calcium 9.6 mg/dl (8.5-10.1); Creatinine Clr Calc Pharmacy 99.5 ml/min; Est GFR (African American) 74.1; Est GFR (Non-African American) 63.9; Potassium 4.1 mmol/L (3.5-5.1)
--- NOTE | 2019-05-18 12:26 | Hospitalist Progress Note ---
Date of Service May 18, 2019 Assessment & Plan (1) VIANNEY (acute kidney injury): This is a 38-year-old female with a PMH of bipolar disorder, intellectual disability, hypertension, anxiety and other medical problems listed in H&P who presents from [facility] with elevated lithium level and acute kidney injury. Cr elevated at 2.83 (baseline ~0.8 but was elevated to mid-1s during recent March- May admission a few weeks ago), BUN 45 Secondary to poor oral intake Started on IV hydration and advised increase oral intake Hold lithium, lisinopril Urine osmolality is low at 197 and urine random sodium was 44 Creatinine is improved to 1.78 from 2.83 at presentation Creatinine is much improved to 1.22 from 2.83 on admission We will discontinue IV fluid and advised to drink more fluid oral Kidney function and lithium level have been normalized Discontinue IV fluid and advised to drink more water Strongly advised to drink plenty of fluid Renal functions remain normal Will require periodic PRP check (2) [place] toxicity: [place] level elevated at 2.4 at [facility]. Repeating level now -Was elevated during recent admission from 04/23-05/05 at 4 initially, medication dose was decreased to [place] ER 450mg BID -Potassium level has been improving -Continue to hold lisinopril and lithium until the level is within normal range -[place] level is 1.4 today. Will discuss with psychiatrist to modify the dose of lithium on -Clinically much better, check lithium level again tomorrow -[place] level is 0.7 today, lithium 450 mg twice daily is restarted -Discussed with Dr. Min and lithium dose was decreased to 300 mg twice daily -We will discharge her on lithium 300 twice daily -Please have periodic check on lithium level -[place] level is 0.9 on 05/18 (3) Hypertension: Hypotensive at 97/54, receiving IV fluid resuscitation -Holding Atenolol, lisinopril -Continue monitoring -Blood pressure is controlled and will not restart lisinopril -May need to add some other antihypertensive blood pressure is not controlled (4) Bipolar disorder: Holding [place] until level normalizes Was evaluated by psychiatrist during her recent hospital admission [place] dose was decreased from 1200 mg/day to 900 mg/day on discharge We will discuss with psychiatrist before discharging the patient and starting lithium again (5) Depression: Continue Effexor, Wellbutrin (6) GERD (gastroesophageal reflux disease): Continue PPI DVT Ppx: SQ heparin Code status: FULL PCP: Domenico Dispo: Admitted to [facility]. Discharge planning ordered. PT and OT requested Advised to increase fluid intake orally Will be discharged today or tomorrow (7) Tibial plateau fracture, right: Old right tibial plateau fracture Evaluated by orthopedics Recommended to have full weightbearing and use of walker Outpatient follow-up as per Ortho as recommended Medically stable to be discharged Subjective 05/13 The patient was seen and examined in medical floor This is a 38-year-old female with a PMH of bipolar disorder, intellectual disability, hypertension, anxiety and other medical problems listed in H&P who presents from [facility] with elevated lithium level and acute kidney injury. She has not been drinking enough fluid She was lethargic but denies any other symptoms 05/14 Patient is seen and examined medical floor She has been feeling much better denies any symptoms Her kidney function and lithium level have improved She has been getting up with physical therapy 05/15 The patient was seen and examined in medical floor Denies any symptoms whatsoever 05/16 The patient was seen and examined in medical floor She denies any symptoms whatsoever Her kidney function is normalized and lithium level is normalized too 05/17 The patient was seen and examined in medical floor She denies to have any symptoms She denies any pain in the joints has been getting physical therapy She is ready to be discharged from the hospital 05/18 The patient is seen and examined in medical floor She denies any symptoms today She was evaluated by orthopedics and recommended full weightbearing on her right lower extremity She is ready to be discharged Review of Systems Review of Systems: All systems reviewed and are unremarkable except as noted below Constitutional: + weakness Musculoskeletal: No acute arthritis involving any of the joints Neurologic: + generalized weakness Psychiatric: + depression, + anxiety and + confusion (Pleasantly confused) Physical Exam Physical Exam: No apparent distress at rest and lying in bed comfortably Constitutional: well developed, well nourished and + obese; no acute distress Eyes: PERRL, conjunctivae normal, anicteric sclerae ENMT: external ear and nose normal, oropharynx normal Neck: trachea midline, no thyromegaly Respiratory: normal respiratory effort; no respiratory distress and does not use accessory muscles Auscultation: lungs clear to auscultation bilaterally Cardiovascular: Rate/Rhythm: regular rate and regular rhythm Heart Sounds: no murmur Gastrointestinal (Abdomen): Inspection/Auscultation: abdomen normal to inspection and normal bowel sounds Percussion/Palpation: abdomen soft; abdomen nontender Musculoskeletal: No acute arthritis in any joints Skin: no rashes, warm and dry Psychiatric: Orientation: cooperative Mood: + depressed mood and + anxious mood Lymphatic: no cervical or axillary lymphadenopathy Results & Data Vital Signs (Past 12 Hours) Vital Signs Temp Pulse Resp BP Pulse Ox 05/18/19 08:36 36.8 C 84 20 117/78 94 05/18/19 04:22 36.9 C 69 18 106/60 97 Laboratory Results [facility] 05/18/19 09:22 Sodium 143 Potassium 4.1 Chloride 113 H Carbon Dioxide 24 BUN 8 Creatinine 1.09 Glucose 102 H Calcium 9.6 [place] level is 0.9 on 05/18 Medications Administered Current Inpatient Medications Acetaminophen (Tylenol) 650 mg PO QID PRN PRN Reason: Pain Stop: 06/11/19 16:23 Last Admin: 05/17/19 16:50 Dose: 650 mg Documented by: Bupropion HCl (Wellbutrin-Xl) 300 mg PO QAM [facility] Stop: 06/12/19 08:59 Last Admin: 05/18/19 08:56 Dose: 300 mg Documented by: Heparin Sodium (Porcine) (Heparin Sodium (Porcine)) 5,000 units SQ Q8 [facility] Stop: 06/11/19 21:59 Last Admin: 05/18/19 05:43 Dose: 5,000 units Documented by: [place] Carbonate (Lithobid) 300 mg PO BID [facility] Stop: 06/16/19 20:59 Last Admin: 05/18/19 08:55 Dose: 300 mg Documented by: Pantoprazole Sodium (Protonix) 40 mg PO DAILY [facility] Stop: 06/12/19 08:59 Last Admin: 05/18/19 08:55 Dose: 40 mg Documented by: Polyethylene Glycol (Miralax Powder Packet) 17 gm PO DAILY PRN PRN Reason: Constipation Stop: 06/11/19 16:23 Senna/Docusate Sodium (Senokot S) 1 tab PO DAILY@1200 PRN PRN Reason: Constipation Stop: 06/11/19 16:23 Venlafaxine HCl (Effexor Extended Release) 75 mg PO QAM [facility] Stop: 06/12/19 08:59 Last Admin: 05/18/19 08:56 Dose: 75 mg Documented by: Venlafaxine HCl (Effexor Extended Release) 150 [facility] Stop: 06/12/19 08:59 Last Admin: 05/18/19 08:55 Dose: 150 mg Documented by: (1) [place] toxicity Encounter type: initial encounter Injury intent: undetermined intent Qualified Code(s): T56.894A - Toxic effect of other metals, undetermined, initial encounter (2) Hypertension Hypertension type: unspecified Qualified Code(s): I10 - Essential (primary) hypertension (3) Bipolar disorder Active/Remission status: currently active Current bipolar episode type: manic Current episode severity: severe Psychotic features: with psychotic features Qualified Code(s): F31.2 - Bipolar disorder, current episode manic severe with psychotic features
--- NOTE | 2019-05-18 17:33 | Discharge Summary ---
Date of Service May 18, 2019 Admission HPI Per Admitting Provider This is a 38-year-old female with a PMH of bipolar disorder, intellectual disability, hypertension, anxiety and other medical problems listed below who presents from [facility] with abnormal lab work. Patient was recently admitted from April 23-May 05 for metabolic encephalopathy in the setting of lithium toxicity and VIANNEY. It was thought that recently increased lithium dose in combination with SSRI had caused metabolic encephalopathy. Urine culture during admission grew alexis-sensitive Proteus and was treated with Bactrim. Prior to discharge, Raton dose was reduced from lithium ER 450 twice daily plus ad ditional 300 mg daily to just Raton ER 450 twice daily. Zoloft was also discontinued during admission and patient was discharged to [facility]. Per paperwork sent from facility, patient was noted to have an elevated lithium level of 2.4 and creatinine of 3.0 and sent to ED for further evaluation. Patient states that she feels fine. Has been drinking less fluids than usual and has been urinating once daily (instead of 3x daily). Urine is reportedly light yellow in color, no hematuria. Appetite and bowel movements are normal. Denies any confusion, fever, chills, lightheadedness, headache, chest pain, palpitations, shortness of breath, nausea, vomiting, abdominal pain, flank pain or diarrhea. Admission Exam Per Admitting Provider Physical Exam: General Appearance: WD/WN, no apparent distress, morbidly obese Head: normocephalic, atraumatic Eyes: normal inspection, PERRL, EOMI ENT: hearing grossly normal, pharynx normal (dry mucous membranes) Neck: supple, no JVD, no adenopathy Respiratory/Chest: lungs clear to auscultation, decreased breath sounds. No wheezes, rales or rhonci. No respiratory distress or accessory muscle use Cardiovascular: regular rate, rhythm, no murmur, normal peripheral pulses Abdomen/GI: Ecchymosis on abdomen. Normal bowel sounds, soft, non-tender to palpation Extremities/Musculoskelatal: normal inspection, no calf tenderness, normal capillary refill, no pedal edema Neurologic/Psych: alert, normal mood/affect, oriented x 4, poor insight/judgement Skin: normal color, warm/dry Principal Diagnosis Acute kidney injury-improved to normal, lithium toxicity, right tibial plateau fracture-full weightbearing as per Ortho, hypertension, depression Discharge Exam Constitutional well developed, well nourished and + obese; no acute distress Eyes PERRL, conjunctivae normal, anicteric sclerae ENMT external ear and nose normal, oropharynx normal Neck trachea midline, no thyromegaly Respiratory normal respiratory effort; no respiratory distress and does not use accessory muscles Auscultation: lungs clear to auscultation bilaterally Cardiovascular Rate/Rhythm: regular rate and regular rhythm Heart Sounds: no murmur Gastrointestinal (Abdomen) Inspection/Auscultation: abdomen normal to inspection and normal bowel sounds Percussion/Palpation: abdomen soft; abdomen nontender Skin no rashes, warm and dry Psychiatric Orientation: cooperative Mood: + depressed mood and + anxious mood Lymphatic no cervical or axillary lymphadenopathy Discharge Data Allergies Allergy/AdvReac Type Severity Reaction Status Date / Time pollen extracts Allergy Intermediate ITCHY Verified 05/12/19 11:42 WATERY EYES, RUNNY NOSE, PUFFY EYES Consultations 05/12/19 13:32 ED Decision to Admit Stat 05/12/19 16:24 Consult Case Management - Discharge Planning Routine 05/17/19 14:33 Consult Orthopedic Surgery Routine Hospital Course (1) VIANNEY (acute kidney injury): This is a 38-year-old female with a PMH of bipolar disorder, intellectual disability, hypertension, anxiety and other medical problems listed in H&P who presents from [facility] with elevated lithium level and acute kidney injury. Cr elevated at 2.83 (baseline ~0.8 but was elevated to mid-1s during recent March- May admission a few weeks ago), BUN 45 Secondary to poor oral intake Started on IV hydration and advised increase oral intake Hold lithium, lisinopril Urine osmolality is low at 197 and urine random sodium was 44 Creatinine is improved to 1.78 from 2.83 at presentation Creatinine is much improved to 1.22 from 2.83 on admission We will discontinue IV fluid and advised to drink more fluid oral Kidney function and lithium level have been normalized Discontinue IV fluid and advised to drink more water Strongly advised to drink plenty of fluid Renal functions remain normal Will require periodic PRP check (2) Raton toxicity: Raton level elevated at 2.4 at [facility]. Repeating level now -Was elevated during recent admission from 04/23-05/05 at 4 initially, medication dose was decreased to Raton ER 450mg BID -Potassium level has been improving -Continue to hold lisinopril and lithium until the level is within normal range -Raton level is 1.4 today. Will discuss with psychiatrist to modify the dose of lithium on -Clinically much better, check lithium level again tomorrow -Raton level is 0.7 today, lithium 450 mg twice daily is restarted -Discussed with Dr. Min and lithium dose was decreased to 300 mg twice daily -We will discharge her on lithium 300 twice daily -Please have periodic check on lithium level -Raton level is 0.9 on 05/18 (3) Hypertension: Hypotensive at 97/54, receiving IV fluid resuscitation -Holding Atenolol, lisinopril -Continue monitoring -Blood pressure is controlled and will not restart lisinopril -May need to add some other antihypertensive blood pressure is not controlled (4) Bipolar disorder: Holding Raton until level normalizes Was evaluated by psychiatrist during her recent hospital admission Raton dose was decreased from 1200 mg/day to 900 mg/day on discharge We will discuss with psychiatrist before discharging the patient and starting lithium again (5) Depression: Continue Effexor, Wellbutrin (6) GERD (gastroesophageal reflux disease): Continue PPI DVT Ppx: SQ heparin Code status: FULL PCP: Domenico Dispo: Admitted to [email or web address]. Discharge planning ordered. PT and OT requested Advised to increase fluid intake orally Will be discharged today or tomorrow (7) Tibial plateau fracture, right: Old right tibial plateau fracture Evaluated by orthopedics Recommended to have full weightbearing and use of walker Outpatient follow-up as per Ortho as recommended Medically stable to be discharged Total Time Total Time Spent Total Time Spent (In Minutes): 40 minutes Total Time Includes: Examination of the Patient, Discharge Planning, Medication Reconciliation and Communication With Other Providers Discharge Plan Discharge Items Patient Disposition: Transfer Snf Fac Reason For Visit: VIANNEY, LITHIUM TOXICITY Discharge Diagnosis: Acute kidney injury-improved to normal, lithium toxicity, right tibial plateau fracture-full weightbearing as per Ortho, hypertension, depression Condition: Good Discharge Goals: Decrease discomfort, Improve function and Increase independence Activity: Resume your previous activity Non-emergency contact: Primary Care Provider Call non-emergency contact if: you have any medication questions and your symptoms worsen Follow-up/Referrals: Nurys Acuña, [Primary Care Provider] - (Please make an appointment with your primary care physician within 7 days following discharge from the facility.) Diet: Regular and Low Sodium (2gm) Diet Comment: Will need to push for adequate fluid intake Addtl Provider Instructions: Orthopedic consult: Full weightbearing on the right knee with full range of motion exercises and strengthening. Follow-up with Dr. Conway in 2 months for repeat x-rays. Office phone number is [phone]. Please call the office sooner if there are any questions or concerns. We need to have periodic renal function test and check for lithium level. Prescriptions: New lithium carbonate 300 mg Tablet Extended Release 300 mg PO BID 30 Days Qty: 60 RF: 0 Continued medroxyprogesterone [Depo-Provera] 150 mg/mL Suspension 150 mg IM Q3M RF: 0 bupropion HCl 300 mg Tablet Extended Release 24 Hr 300 mg PO QAM RF: 0 venlafaxine 75 mg Capsule,Extended Release 24hr 225 mg PO QAM RF: 0 venlafaxine 150 mg Capsule,Extended Release 24hr 225 mg PO QAM RF: 0 propranolol 20 mg tablet 20 mg PO BID RF: 0 melatonin 3 mg tablet 6 mg PO HS RF: 0 acetaminophen 325 mg Tablet 650 mg PO QID PRN (Reason: Pain) RF: 0 polyethylene glycol 3350 17 gram Powder In Packet 17 g PO DAILY PRN (Reason: Constipation) RF: 0 sennosides-docusate sodium [Senna with Docusate Sodium] 8.6-50 mg Tablet 1 tab PO DAILY@1200 RF: 0 pantoprazole 40 mg Tablet,Delayed Release (Dr/Ec) 40 mg PO DAILY RF: 0 calcium carbonate 500 mg calcium (1,250 mg) Tablet,Chewable 500 mg PO TID RF: 0 Discontinued lithium carbonate 450 mg Tablet Extended Release 450 mg PO BID 30 Days Qty: 60 RF: 0 lisinopril 5 mg Tablet 5 mg PO DAILY RF: 0 Stand-Alone Forms: [facility] Discharge Orders: Discharge Order (Routine); Ordered 05/18/19 Ordered By: Tano Marti Skilled Items Patient informed of condition?: Yes DNR: No Discharge Level of Care: Skilled Communicable Disease: No Discharge Prognosis: Stable Admission Data Admit Date/Time: 05/12/19 14:49 Attending Provider: Tano Marti Admit Provider: Nicanor Londono Primary Care Provider: Nurys Acuña Other Providers: Nicanor Londono ; Flex Conway Service: Telemetry Medical Other Interventions: Discharge Summary Assessment (RN) Last Done: 05/18/19 16:34
== END 2019-05-18 17:30 | DRG 683 ==
LOC: ED 10:20 → 2W 14:49